=== PATIENT | female | born 1985 | race African-American/Black ===

== ENCOUNTER 2020-08-29 10:55 | Outpatient (CLI) | payer MEDICARE, SELFPAY ==
[2020-08-29 12:01] LABS: Basophils Absolute Auto 0.1 K/mm3 (0.0-0.1); Basophils Percent Auto 0.7 % (0.2-1.2); Eosinophils Absolute Auto 0.4 K/mm3 (0-0.3); Eosinophils Percent Auto 4.9 % (0-4.4); Hematocrit 39.8 % (37.0-47.0); Hemoglobin 12.7 g/dL (12.0-15.0); Immature Granulocyte Absolute 0.02 K/mm3 (0.00-0.031); Immature Granulocyte Percent A 0.2 % (0-0.5); Lymphocytes Absolute Auto 2.06 K/mm3 (0.9-3.2); Lymphocytes Percent Auto 24.2 % (18.3-44.2); Mean Corpuscular HGB Conc 31.9 g/dl (32-36); Mean Corpuscular Hemoglobin 28.7 pg (26-34); Mean Platelet Volume 9.9 fl (7.4-10.4); Monocytes Absolute Auto 0.5 K/mm3 (0.1-0.6); Monocytes Percent Auto 5.6 % (2.6-8.5); Neutrophils Absolute Auto 5.5 K/mm3 (1.3-6.7); Neutrophils Percent Auto 64.4 % (45.5-73.1); Platelet Count Result 362 k/mm3 (150-375); Red Blood Count 4.42 M/mm3 (4.2-5.4); Red Cell Distribution Width 14.5 % (11.5-14.5); White Blood Count 8.5 K/mm3 (4.5-10.0)
[2020-08-29 12:11] LABS: Alanine Aminotransferase 19 U/L (4-35); Alkaline Phosphatase 75 U/L (38-126); Anion Gap 6 mmol/L (8-16); Aspartate Amino Transferase 29 U/L (14-36); Bilirubin,Total 0.4 mg/dL (0.2-1.3); Blood Urea Nitrogen 10 mg/dL (7-17); CRP 2.3 mg/dL (<1.0); Calcium 9.1 mg/dL (8.4-10.2); Carbon Dioxide 30 mmol/L (22-30); Chloride 104 mmol/L (98-107); Estimated Glomerular Filt Rate > 60; Glucose 111 mg/dL (65-105); Potassium 3.6 mmol/L (3.4-5.0); Sodium 140 mmol/L (137-145)
[2020-08-29 14:00] LABS: Erythrocyte Sedimentation Rate 32 mm/hr (0-20)
== END 2020-08-29 10:56 | disposition home or self-care (01) ==
LOC: ANHLAB 11:05
PROVIDERS: PCP Internal Medicine
DX: M06.09 Rheumatoid arthritis without rheumatoid factor, multiple sites (principal); M79.7 Fibromyalgia; Z79.899 Other long term (current) drug therapy
CPT/HCPCS: 36415; 80053; 85025; 85652; 86140

== ENCOUNTER 2022-05-12 15:12 | Outpatient (CLI) | payer OTHER, SELFPAY ==
--- NOTE | ~2022-05-12 | XR_ITS ---
EXAM: XR abdomen/kub 1V DATE: 05/12/2022 15:28 HISTORY: K59.00 - Constipation, unspecified, PAIN SINCE FEBRUARY . COMPARISON: None available. FINDINGS: Clear lung bases. Suture line near the GE junction and mid left abdomen. Cholecystectomy c lips Normal bowel gas pattern. No organomegaly. Pelvic phleboliths. Regional bones and soft tissues n ormal for age. IMPRESSION: No radiographic evidence of obstruction or ileus. Reviewed, dictated and finalized at location K.
[2022-05-12 16:37] LABS: Hematocrit 28.8 % (37.0-47.0); Hemoglobin 8.5 g/dL (12.0-15.0); Mean Corpuscular HGB Conc 29.5 g/dl (32-36); Mean Corpuscular Hemoglobin 24.1 pg (26-34); Mean Corpuscular Volume 81.8 fl (80-100); Mean Platelet Volume 9.8 fl (7.4-10.4); Platelet Count Result 422 k/mm3 (150-375); Red Blood Count 3.52 M/mm3 (4.2-5.4); Red Cell Distribution Width 15.8 % (11.5-14.5); White Blood Count 8.8 K/mm3 (4.5-10.0)
[2022-05-12 16:55] LABS: Alanine Aminotransferase 13 U/L (6-35); Alkaline Phosphatase 72 U/L (38-126); Anion Gap 10 mmol/L (8-16); Aspartate Amino Transferase 24 U/L (14-36); Bilirubin,Total 0.1 mg/dL (0.2-1.3); Blood Urea Nitrogen 11 mg/dL (7-17); CRP 0.9 mg/dL (<1.0); Calcium 8.7 mg/dL (8.4-10.2); Carbon Dioxide 25 mmol/L (22-30); Chloride 103 mmol/L (98-107); Estimated Glomerular Filt Rate > 60; Glucose 80 mg/dL (65-110); Potassium 3.9 mmol/L (3.4-5.0); Sodium 138 mmol/L (137-145)
[2022-05-12 16:58] LABS: Iron 16 ug/dL (37-170)
[2022-05-12 17:07] LABS: Percent Iron Saturation 4 % (20-50)
[2022-05-12 17:11] LABS: Erythrocyte Sedimentation Rate 31 mm/hr (0-20)
[2022-05-12 17:30] LABS: Thyroid Stimulating Hormone Reflex 0.413 uIU/mL (0.465-4.68)
[2022-05-12 17:53] LABS: Folic Acid 7.3 ng/mL (2.76->20)
[2022-05-12 21:53] LABS: Free T4 Free Thyroxine Reflex 0.86 ng/dL (0.78-2.19)
[2022-05-12 23:10] LABS: Total Triiodothyronine (T3) 1.12 NG/ML (0.97-1.69)
[2022-05-25 16:11] LABS: Gliadin AB, IgG <1.0 U/mL
[2022-05-25 16:13] LABS: TTG IGA AB <1.0 U/mL
== END 2022-05-12 15:13 | disposition home or self-care (01) ==
LOC: ANHIMG 15:13
PROVIDERS: PCP Internal Medicine; Visit Provider Nurse Practitioner
DX: K59.00 Constipation, unspecified (principal); R93.3 Abnormal findings on diagnostic imaging of other parts of digestive tract; R10.11 Right upper quadrant pain; R14.0 Abdominal distension (gaseous); Z98.84 Bariatric surgery status
CPT/HCPCS: 36415; 74018; 80053; 82607; 82746; 83516; 83540; 83550; 84439; 84443; 84480; 85027; 85652; 86140; 86255

== ENCOUNTER 2022-05-22 11:08 | Outpatient (CLI) | payer MEDICARE, SELFPAY ==
--- NOTE | ~2022-05-22 | XR_ITS ---
EXAMINATION: XR UGIAC w small bowel DATE: 05/22/2022 13:14 INDICATION: Abdominal pain after eating. TECHNIQUE: The patient drank thick barium, gas-producing crystals, and thin barium. Fluoroscopy of th e esophagus, stomach, and small bowel was performed. Fluoroscopy exposure time was 0.6 minutes. Radio graphs of the abdomen were obtained. The total number of images was 280. COMPARISON: None. FINDINGS: UPPER GASTROINTESTINAL SERIES: There is no mass or stricture of the esophagus. Esophageal motility is normal. There is no hiatal her cecilio. There are changes of gastric bypass procedure. Surgical clips in the right upper quadrant are shiva oneill from cholecystectomy. SMALL BOWEL SERIES: The small bowel shows a normal folding pattern. Specifically, the terminal ileum is normal. Transit t jackeline to the colon was 1 hour 15 minutes. IMPRESSION: 1. Gastric bypass procedure. 2. Normal small bowel series. Reviewed, dictated and finalized at location A.
== END 2022-05-22 11:09 | disposition home or self-care (01) ==
PROVIDERS: PCP Internal Medicine; Visit Provider Nurse Practitioner
DX: R93.3 Abnormal findings on diagnostic imaging of other parts of digestive tract (principal); R10.11 Right upper quadrant pain; R14.0 Abdominal distension (gaseous); K21.9 Gastro-esophageal reflux disease without esophagitis; Z98.84 Bariatric surgery status
CPT/HCPCS: 74246; 74248

== ENCOUNTER 2022-06-02 12:57 | Outpatient (CLI) | payer MEDICARE, SELFPAY ==
--- NOTE | ~2022-06-02 | CT_ITS ---
EXAMINATION: CT abdomen pelvis w con DATE: 06/02/2022 13:36 INDICATION: Right upper quadrant abdominal pain. TECHNIQUE: Computed tomography (CT) of the abdomen and pelvis was performed with 100 cc Omnipaque 350 intravenous contrast. The dose-length product was 1218.78 mGy-cm. Automated exposure control and ite rative reconstruction technique were employed. COMPARISON: None. FINDINGS: Lung bases are unremarkable. No significant pleural or pericardial effusion. Heart size nor mal. Small hiatal hernia. There are changes of gastric bypass surgery. There are cholecystectomy clip s. Mild fatty infiltration of the liver. The spleen, pancreas, adrenal glands and kidneys are unremarkab le. There is residual barium in the colon. Nonobstructive bowel pattern. No free air or free fluid. T here is a 4.6 cm left adnexal cyst, likely ovarian. No acute osseous abnormality. IMPRESSION: 1. No acute abdominal abnormality. 2: Left adnexal cyst measuring 4.6 cm, likely ovarian. Reviewed, dictated and finalized at location A.
== END 2022-06-02 12:58 | disposition home or self-care (01) ==
PROVIDERS: PCP Internal Medicine; Visit Provider Nurse Practitioner
DX: R10.11 Right upper quadrant pain (principal); R14.0 Abdominal distension (gaseous); Z98.84 Bariatric surgery status
CPT/HCPCS: 74177; Q9967

== ENCOUNTER 2022-09-01 16:02 | Outpatient (CLI) | payer MEDICARE, SELFPAY ==
[2022-09-01 16:18] LABS: Basophils Absolute Auto 0.1 K/mm3 (0.0-0.1); Basophils Percent Auto 0.7 % (0.2-1.2); Eosinophils Absolute Auto 0.1 K/mm3 (0-0.3); Eosinophils Percent Auto 1.9 % (0-4.4); Hematocrit 30.6 % (37.0-47.0); Hemoglobin 9.2 g/dL (12.0-15.0); Immature Granulocyte Absolute 0.01 K/mm3 (0.00-0.031); Immature Granulocyte Percent A 0.1 % (0-0.5); Lymphocytes Absolute Auto 2.51 K/mm3 (0.9-3.2); Lymphocytes Percent Auto 37.2 % (18.3-44.2); Mean Corpuscular HGB Conc 30.1 g/dl (32-36); Mean Corpuscular Hemoglobin 24.3 pg (26-34); Mean Corpuscular Volume 80.7 fl (80-100); Monocytes Absolute Auto 0.6 K/mm3 (0.1-0.6); Monocytes Percent Auto 8.1 % (2.6-8.5); Neutrophils Absolute Auto 3.5 K/mm3 (1.3-6.7); Platelet Count Result 435 k/mm3 (150-375); Red Blood Count 3.79 M/mm3 (4.2-5.4); White Blood Count 6.8 K/mm3 (4.5-10.0)
[2022-09-01 17:30] LABS: Alanine Aminotransferase 18 U/L (6-35); Albumin Level 4.2 g/dL (3.5-5.1); Alkaline Phosphatase 86 U/L (38-126); Anion Gap 5 mmol/L (8-16); Aspartate Amino Transferase 24 U/L (14-36); Bilirubin,Total 0.2 mg/dL (0.2-1.3); Blood Urea Nitrogen 12 mg/dL (7-17); Calcium 8.6 mg/dL (8.4-10.2); Carbon Dioxide 29 mmol/L (22-30); Chloride 106 mmol/L (98-107); Estimated Glomerular Filt Rate > 60; Glucose 93 mg/dL (65-110); Potassium 4.1 mmol/L (3.4-5.0); Sodium 140 mmol/L (137-145)
[2022-09-01 18:34] LABS: Folic Acid 5.9 ng/mL (2.76->20)
[2022-09-01 18:55] LABS: Iron 26 ug/dL (37-170)
[2022-09-01 19:07] LABS: Percent Iron Saturation 6 % (20-50)
[2022-09-01 19:32] LABS: Ferritin 5.42 ng/mL (6.24-137)
== END 2022-09-01 16:03 | disposition home or self-care (01) ==
LOC: ANHLAB 16:03
PROVIDERS: PCP Internal Medicine; Visit Provider Internal Medicine Hematology & Oncology
DX: D64.9 Anemia, unspecified (principal)
CPT/HCPCS: 36415; 80053; 82607; 82728; 82746; 83540; 83550; 85025

== ENCOUNTER 2025-05-07 08:36 | Outpatient (CLI) | payer OTHER, SELFPAY ==
[2025-05-07 08:51] LABS: Hematocrit 37.2 % (37.0-47.0); Hemoglobin 11.6 g/dL (12.0-15.0); Immature Granulocyte Percent A 0.2 % (0-0.5); Lymphocytes Absolute Auto 1.89 K/mm3 (0.9-3.2); Mean Corpuscular HGB Conc 31.2 g/dl (32-36); Mean Corpuscular Hemoglobin 27.3 pg (26-34); Mean Corpuscular Volume 87.5 fl (80-100); Nucleated Red Blood Cells Absolute Auto 0.000 K/mm3 (0.0-0.012); Nucleated Red Blood Cells Perc 0.0 % (0.0-0.2); Platelet Count Result 315 k/mm3 (150-375); Red Blood Count 4.25 M/mm3 (4.2-5.4); White Blood Count 6.4 K/mm3 (4.5-10.0)
--- OUTSIDE RECORDS SUMMARY | 2025-05-07 08:55 | XMS_ITS | Encounter Summary ---
Author Organization [facility] Address [address] [place] [address] Phone Care Team Providers Care Recording Studio Set Up Worker Name Role Phone Janina Crockett MD Primary Care Provide r Janina Crockett MD Primary Care Provide r Janina Crockett MD Primary Care Provide r Niraj Crump BUSINESS SYSTEMS ADMINISTRATOR Primary Care Provider + Niraj Crump BUSINESS SYSTEMS ADMINISTRATOR Primary Care Provider + Niraj Crump BUSINESS SYSTEMS ADMINISTRATOR Primary Care Provider + Janina Crockett MD Primary Care Provide r Janina Crockett MD Primary Care Provide r Niraj Crump BUSINESS SYSTEMS ADMINISTRATOR Primary Care Provider + Janina Crockett MD Primary Care Provide r Niraj Crump BUSINESS SYSTEMS ADMINISTRATOR Primary Care Provider + Macario Tinoco PT Unavailable Unavailable Janina Crockett MD Primary Care Provide r Jermaine Huertas PT Unavailable Unavaila Niraj Michelle NP Primary Care Provider + Bria Bailey MD Unavailable [phone] Patience Chapa Primary Care Provider + Viktor Foley MD Unavailable [phone] Austin Lee MD Primary Care Provider [phone] Patience Chapa Primary Care Provider + Patience Chapa Primary Care Provider + Danilo Mirza MD Primary Care Provider [phone] Dannielle Lee MD Primary Care Provider [phone] Austin Lee MD Primary Care Provider [phone] Dannielle Lee MD Primary Care Provider [phone] Austin Lee MD Primary Care Provider [phone] Dannielle Lee MD Primary Care Provider [phone] Niraj Crump BUSINESS SYSTEMS ADMINISTRATOR Primary Care Provider + Austin Lee MD Primary Care Provider [phone] Brianna Hough RN Unavailable [phone] Rochelle GivensW Unavailable [phone] Fernanda Cooley MD Primary Care Provider Encounter Details Date Type Department Care Team (Latest Contact Info) Description 11/22/2017 Orders Only [facility] CONVERSION Scanning, Provider Social History Tobacco Use Types Packs/Day Years Used Date Smoking Tobacco: Never Smokeless Tobacco: Never Alcohol Use Standard Drinks/Week Comments No 0 (1 standard drink = 0.6 oz pur e alcohol) Comments Yes Sex and Gender Information Value Date Recorded Sex Assigned at Not on file Legal Sex Female 5:47 PM SUPERVISOR ORNAMENTAL IRONWORKING Gender Identity Not on file Sexual Orientation Not on file documented as of this encounter Plan of Treatment Not on file documented as of this encounter Procedures Procedure Name Priority Date/Time Associated Diagnosis Comments OBSTETRIC/GYNECOLOGY ULTRASONOGRAPHY REPORT 12/06/2017 6:39 PM CDT OBSTETRIC/GYNECOLOGY ULTRASONOGRAPHY REPORT 11/22/2017 11:48 AM CDT documented in this encounter Results * OBSTETRIC/GYNECOLOGY ULTRASONOGRAPHY REPORT (12/06/2017 6:39 PM CDT) Anatomical Region Laterality Modality Ultrasound us Provider Scanning IMG OB US PROCEDURES Final Res ult * OBSTETRIC/GYNECOLOGY ULTRASONOGRAPHY REPORT (11/22/2017 11:48 AM CDT) Anatomical Region Laterality Modality Ultrasound us Provider Scanning IMG OB US PROCEDURES Edited Re sult - Final documented in this encounter Visit Diagnoses Not on filedocumented in this encounter Additional Health Concerns Infection Onset Date Last Indicated Resolved Time COVID: Suspected 04/02/2020 04/02/2020 04/03/2020 2:07 PM CDT COVID19 04/02/2020 04/02/2020 04/16/2020 3:07 AM CDT COVID: Recovered Comment:Added based on recent COVID infection. 04/16/2020 05/03/2020 08/14/2020 3:[address] COVID: Suspected 09/28/2020 09/28/2020 09/28/2020 1:09 PM SUPERVISOR ORNAMENTAL [employer]ONWORKING Respiratory Infection (ROSAMARIA), contact + droplet Comment:Automatically added due to negative COVID-19 result. 09/28/2020 09/28/2020 09/30/2020 11: 42 AM SUPERVISOR [employer]RNAMENTAL [employer]ONWORKING C. difficile 09/29/2020 09/29/2020 09/30/2020 11:4 1 AM SUPERVISOR [employer]RNAMENTAL [employer]ONWORKING C. difficile Comment:03/13/2022 Patient completed antibiotic course in 2020. 12/13/2020 IP Review - Pt is currently on effective abx. Not a candidate for isolation discontinuation at this time. Franco Thomas IP Review- Patient has finished treatment and currently has formed stools. Isolation removed. 12/21/23 4:47 PM Rochelle Baker 09/29/2020 09/30/2020 12/21/2023 4:47 PM C DT COVID: Suspected 06/10/2021 06/10/2021 06/11/2021 3:24 AM CDT documented as of this encounter Care Teams Recording Studio Set Up Worker Relationship Specialty Start Date End Date Janina Crockett MD [address] [place] [address] PCP - General 11/22/17 11/22/17 Janina Crockett MD [address] [place] [address] PCP - General 11/23/17 11/25/17 Janina Crockett MD [address] [place] [address] PCP - General 11/26/17 11/28/17 Niraj Crump, ALEKSANDRA [address] [facility] [address] [place] [address] PCP - General 11/29/17 12/05/17 Niraj Crump, ALEKSANDRA [address] [facility] [address] [place] [address] PCP - General 12/06/17 12/06/17 Niraj Crump NP [address] [facility] [address] [place] [address] PCP - General 12/07/17 12/07/17 Janina Crockett MD [address] [place] [address] PCP - General 12/08/17 12/22/17 Janina Crockett MD [address] [place] [address] PCP - General 12/23/17 01/03/18 Niraj Crump NP [address] [facility] [address] [place] [address] PCP - General 01/04/18 01/04/18 Janina Crockett MD [address] [place] [address] PCP - General 01/05/18 02/03/18 Niraj Crump, ALEKSANDRA [address] [facility] [address] [place] [address] PCP - General 02/04/18 02/14/18 Janina Crockett MD [address] [place] [address] PCP - General 02/15/18 03/13/18 Niraj Crump, ALEKSANDRA [address] [facility] [address] [place] [address] PCP - General 03/14/18 08/27/18 Patience Chapa PA [address] [place] [address] PCP - General 08/28/18 06/26/19 Austin Lee MD [address] [place] [address] PCP - General Internal Medicine 06/27/19 07/11/19 Patience Chapa PA [address] [place], [place] [id number] PCP - General 07/12/19 08/20/19 Patience Chapa PA [address] [place] [address] PCP - General 08/21/19 11/13/19 Danilo Mirza MD [address] [place] [address] PCP - General 11/14/19 09/27/20 Dannielle Lee MD [address] [place] [address] PCP - General 09/28/20 11/30/20 Austin Lee MD [address] [place] [address] PCP - General 12/01/20 12/08/20 Dannielle Lee MD [address] [place] [address] PCP - General 12/09/20 12/09/20 Austin Lee MD [address] [place] [address] PCP - General 12/10/20 12/11/20 Dannielle Lee MD [address] [place] [address] PCP - General 12/12/20 06/09/21 Niraj Crump NP [address] [facility] [address] [place] [address] PCP - General 06/10/21 01/21/22 Austin Lee MD [address] [place] [address] PCP - General 01/22/22 02/22/25 Fernanda Cooley MD [address] [facility] Mailstop [phone] [place] [address] PCP - General Family Medicine 03/06/25 Macario Tinoco, PT Physical Therapist Physical Therapy 02/09/18 Jermaine Huertas, PT Physical Therapist Physical Therapy 02/21/18 Bria Bailey MD Referring Physician Obstetrics and Gynecology 03/31/18 Viktor Foley MD [address] [place] [address] Surgeon General Surgery 08/30/18 Brianna Hough, RN [address] [facility] [address] [place] [address] SHOP Outpatient Customs Import Specialist 12/27/23 01/20/24 Rochelle Givens, AUTO OVERHAULER [address] [facility] ([facility] Mailstop [phone] [place] [address] [employer]OP Outpatient Customs Import Specialist 02/26/25 documented as of this encounter
--- OUTSIDE RECORDS SUMMARY | 2025-05-07 08:55 | XMS_ITS | Encounter Summary ---
Author Organization [facility] Address [address] [place] [address] Phone Care Team Providers Care Rv Body Mechanic Name Role Phone Macario Tinoco PT Unavailable Unavailable Jermaine Huertas PT Unavailable Unavaila Bria Salamanca MD Unavailable [phone] Viktor Foley MD Unavailable [phone] Austin Lee MD Primary Care Provider [phone] Brianna Hough RN Unavailable [phone] Rochelle Givens SENIOR LOAN OFFICER Unavailable [phone] Fernanda Cooley MD Primary Care Provider Encounter Details Date Type Department Care Team (Late st Contact Info) Description 06/23/2022 Telephone [facility] Medicine Cardiology [address] [facility] [address]th [place] [address] [place] [address] Dc Gonzalez MD [address] [facility] [address] [place] [address] Social History Tobacco Use Types Packs/Day Years Used Date Smoking Tobacco: Never Smokeless Tobacco: Never Alcohol Use Standard Drinks/Week Comments Yes 0 (1 standard drink = 0.6 oz pur e alcohol) rarely AUDIT-C Answer Date Recorded Q1: How often do you have a drink containing alc ohol? Monthly or less 03/13/2022 Q2: How many drinks containi ng alcohol do you have on a typical day when you are drinking? 1 or 2 03/13/2022 Q3: How often do you have si x or more drinks on one occasion? Never 03/13/2022 Comments No Sex and Gender Information Value Date Recorded Sex Assigned at Not on file Legal Sex Female 5:47 PM HAND PATCHER Gender Identity Not on file Sexual Orientation Not on file documented as of this encounter Plan of Treatment Not on file documented as of this encounter Visit Diagnoses Not on filedocumented in this encounter Additional Health Concerns Infection Onset Date Last Indicated Resolved Time C. difficile Comment:03/13/2022 Patient completed antibiotic course in 2020. 12/13/2020 IP Review - Pt is currently on effective abx. Not a candidate for isolation discontinuation at this time. Francoalivia Thomas IP Review- Patient has finished treatment and currently has formed stools. Isolation removed. 12/21/23 4:47 PM Rochelle Baker 09/29/2020 09/30/2020 12/21/2023 4:47 PM C DT documented as of this encounter Care Teams Rv Body Mechanic Relationship Specialty Start Date End Date Austin Lee MD [address] [place] [address] PCP - General 01/22/22 02/22/25 Fernanda Cooley MD [address] [facility] ([facility] [phone] [place] [address] PCP - General Family Medicine 03/06/25 Macario Tinoco, PT Physical Therapist Physical Therapy 02/09/18 Jermaine Huertas, PT Physical Therapist Physical Therapy 02/21/18 Bria Bailey MD Referring Physician Obstetrics and Gynecology 03/31/18 Viktor Foley MD Surgeon General Surgery 08/30/18 Brianna Hough, RN [address] [facility] [address] [place] [address] SHOP Outpatient Collection Administrator 12/27/23 01/20/24 Rochelle Givens, LLOYD [address] [facility] [place] Mailstop [phone] [place] [address] SHOP Outpatient Collection Administrator 02/26/25 documented as of this encounter
--- OUTSIDE RECORDS SUMMARY | 2025-05-07 08:55 | XMS_ITS | Clinical Summary ---
Author Organization [facility] Address [address] [place] [address] Phone Care Team Providers Care Crew Lead Name Role Phone Austin Lee MD Primary Care Provider [phone] Allergies Active Allergy Reactions Criticality Noted Date Comments Aspirin Rash Low 10/08/2016 Latex Anaphylaxis,Rash Medium 03/10/2016 Penicillins Anaphylaxis,Other (s ee Comments) Low 03/10/2016 Pt.doesnt know Azithromycin Rash,Other (see Comments) Low 03/10/20 16 Pt.doesn't know Medications DULoxetine (CYMBALTA) [address] Particles Take 60 mg by mouth nightly. Active traZODone (DESYREL) 50 MG Tablet Take 25 mg by mouth nightly. Active prazosin (MINIPRESS) 1 MG Capsule Take 1 mg by mouth nightly. Active montelukast (SINGULAIR) 2.5 MG Chewable Tablet Take 10 mg by mouth every evening. Active cyclobenzaprine (FLEXERIL) 10 MG Tablet Take 10 mg by mouth 3 times daily as needed for Muscle spasms. Active furosemide (LASIX) 20 MG Tablet Take 20 mg by mouth daily. Active albuterol (PROVENTIL HFA, VENTOLIN HFA) 108 (90 BASE) MCG/ACT Aerosol Solution take 2 Puffs by inhalation every 4 hours as needed for Wheezing. Active ergocalciferol (VITAMIN D) 76557 UNIT Capsule 7 Active fluconazole (DIFLUCAN) 200 MG Tablet Take 1 tablet by mouth on days 1, 4, and 7. 6 Active HYDROcodone-erica taminophen (NORCO) 5-325 MG Tablet 7 Active metoprolol Succinate (TOPROL-XL) 25 MG TABLET SR 24 HR 7 Active montelukast (SINGULAIR) 10 MG Tablet 7 Active Norethindrone, Contraceptive, 0.35 MG Tablet 7 Active ondansetron (ZOFRAN-ODT) 4 MG TABLET DISPERSIBLE 7 Active oxyCODONE-aceta minophen (PERCOCET) 5-325 MG Tablet 7 Active traMADol (ULTRAM) 50 MG Tablet Take by mouth. Activ e DULoxetine (CYMBALTA) [address] Particles Take by mouth. Activ e hydroCHLOROthia zide 25 MG Tablet Take by mouth. Activ e clonazePAM (KLONOPIN) 0.5 MG Tablet Take by mouth. Activ e DULoxetine (CYMBALTA) [address] Particles Take by mouth. 4 Active metoprolol Succinate (TOPROL-XL) 25 MG TABLET SR 24 HR Take by mouth. 7 Active traMADol (ULTRAM) 50 MG Tablet Take by mouth. Activ e ciprofloxacin (CIPRO) 500 MG Tablet Take 500 mg by mouth 2 times daily. Active Wkpmvyap-Qgq-Rb -FA (PRE- PO) Take by mouth. Activ e metroNIDAZOLE (FLAGYL) 500 MG Tablet Take 500 mg by mouth 3 times daily. Active tiZANidine (ZANAFLEX) 4 MG Tablet Take 4 mg by mouth 2 times daily as needed. Active LORazepam (ATIVAN) 0.5 MG Tablet Take 1 tablet 60 min prior to procedure, repeat 30 min later as needed. 2 Tab 9 Active Additional Information Patient not taking.Reported on 03/05/2022 VANCOMYCIN HCL PO Take by mouth. Activ e etonogestrel (Nexplanon) 68 MG Implant by Subcutaneous route once. Active lamoTRIgine (LaMICtal) 100 MG Tablet Take 100 mg by mouth daily. Active diphenhydrAMINE HCl (BENADRYL ALLERGY PO) Take by mouth. Act aedn Active Problems Problem Noted Date Diagnosed Date Mild intermittent asthma without complication SOB (shortness of breath) 06/30/2016 JHONATAN (obstructive sleep apnea) 06/30/2016 Primary pulmonary hypertension 06/30/2016 Morbid obesity due to excess calories 06/30/2016 Gastroesophageal reflux disease without esophagi tis 06/30/2016 Depression 06/30/2016 Family History Medical History Relation Name Comments Congestive Heart Failure Father Hypertension Mother Relation Name Status Comments Father Alive Mother Alive Social History Tobacco Use Types Packs/Day Years Used Date Smoking Tobacco: Never Smokeless Tobacco: Never Tobacco Cessation:Counseling Given: Yes Alcohol Use Standard Drinks/Week Comments Yes 0 (1 standard drink = 0.6 oz pur e alcohol) special occassions Sexually Active Control Partners Comments Not Currently Comments No Sex and Gender Information Value Date Recorded Sex Assigned at Not on file Legal Sex Female 11:36 PM CDT Gender Identity Not on file Sexual Orientation Not on file Last Filed Vital Signs Vital Sign Reading Time Taken Comments Blood Pressure 124/68 07/14/2024 5:47 PM CDT Pulse 102 07/14/2024 5:47 PM CDT Temperature 36.4 C (97.6 F) 07/14/2024 5:47 PM CDT Respiratory Rate 19 07/14/2024 5:47 PM CDT Oxygen Saturation 100% 07/14/2024 5:47 PM CDT Inhaled Oxygen Concentration - - Weight 102.8 kg (226 lb 9.6 oz) 022 10:55 AM CDT Height 157.5 cm (5' 2) 03/05/2022 10:5 5 AM CDT Body Mass Index 41.45 03/05/2022 10:55 AM CDT Plan of Treatment Health Maintenance Due Date Last Done Comments Hepatitis C Virus (HCV) Screening 1987 Hepatitis B Immunization (1 of 3 - 19+ 3-dose series) 2006 Pneumococcal Immunization Combined (1 of 2 - PCV) 2006 Pap Smear 2008 Human Papillomavirus (HPV) Immunization (1 - 3-dose SCDM series) 2014 Cervical Cancer Screening (CCS) 2017 HPV/Cotest 2017 SARS-COV-2 Immunization ( season) 2024 10/29/2021, 05/12/2021, 04/19/2021 Influenza Immunization (#1) 2025 Respiratory Syncytial Virus (RSV) Immunization (Adult) (1 - 1-dose 75+ series) 2062 DTaP/Tdap/Td Immunization Discontinued 02/01/2018 TdaP Immunization Completed 02/01/2018 Meningococcal Immunization (ACWY) Aged Out No longer eligible based on patient's age to complete this topic Rotavirus Immunization Aged Out No lo nger eligible based on patient's age to complete this topic Insurance [employer] Care Teams Crew Lead Relationship Specialty Start Date End Date Austin Lee MD [address] [place] [address] PCP - General Internal Medicine 10/22/20
--- OUTSIDE RECORDS SUMMARY | 2025-05-07 08:55 | XMS_ITS | Encounter Summary ---
Author Organization [facility] Address [address] [place] [address] Phone Care Team Providers Care Freight Sales Broker Name Role Phone Macario Tinoco PT Unavailable Unavailable Jermaine Huertas PT Unavailable UnavailNiraj Nogueira NP Primary Care Provider + Bria Bailey MD Unavailable [phone] Patience Chapa Primary Care Provider + Viktor Foley MD Unavailable [phone] Austin Lee MD Primary Care Provider [phone] Patience Chapa Primary Care Provider + Patience Chapa Primary Care Provider + Danilo Mirza MD Primary Care Provider [phone] Dannielle Lee MD Primary Care Provider [phone] Austin Lee MD Primary Care Provider [phone] Dannielle Lee MD Primary Care Provider [phone] Austin Lee MD Primary Care Provider [phone] Dannielle Lee MD Primary Care Provider [phone] Niraj Crump NP Primary Care Provider + Austin Lee MD Primary Care Provider [phone] Brianna Hough RN Unavailable [phone] Yuniorcici Rochelle Flannery AUTOMATION ENGINEER Unavailable Fernanda Cooley MD Primary Care Provider Encounter Details Date Type Department Care Team (Latest Contact Info) Description 07/29/2018 Orders Only [facility] Scanning, Provider Social History Tobacco Use Types Packs/Day Years Used Date Smoking Tobacco: Never Smokeless Tobacco: Never Alcohol Use Standard Drinks/Week Comments No 0 (1 standard drink = 0.6 oz pur e alcohol) Comments No Sex and Gender Information Value Date Recorded Sex Assigned at Not on file Legal Sex Female 5:47 PM SOCIAL WORKER AIDE Gender Identity Not on file Sexual Orientation Not on file documented as of this encounter Plan of Treatment Not on file documented as of this encounter Procedures Procedure Name Priority Date/Time Associated Diagnosis Comments CARDIOLOGY DOCUMENT SCAN 07/29/2018 documented in this encounter Results * SCAN - CARDIOLOGY (07/29/2018) Anatomical Region Laterality Modality Other us Provider Scanning CV CARDIAC SERVICES PROCEDURES Final Result documented in this encounter Visit Diagnoses Not on filedocumented in this encounter Additional Health Concerns Infection Onset Date Last Indicated Resolved Time COVID: Suspected 04/02/2020 04/02/2020 04/03/2020 2:07 PM CDT COVID19 04/02/2020 04/02/2020 04/16/2020 3:07 AM CDT COVID: Recovered Comment:Added based on recent COVID infection. 04/16/2020 05/03/2020 08/14/2020 3:[address] COVID: Suspected 09/28/2020 09/28/2020 09/28/2020 1:09 PM SOCIAL WORKER AIDE Respiratory Infection (ROSAMARIA), contact + droplet Comment:Automatically added due to negative COVID-19 result. 09/28/2020 09/28/2020 09/30/2020 11: 42 AM SOCIAL WORKER AIDE C. difficile 09/29/2020 09/29/2020 09/30/2020 11:4 1 AM SOCIAL WORKER AIDE C. difficile Comment:03/13/2022 Patient completed antibiotic course [...] documented as of this encounter Care Teams Freight Sales Broker Relationship Specialty Start Date End Date Niraj Crump NP [address] [facility] [address] [place] [id number] PCP - General 03/14/18 08/27/18 Patience Chapa PA [address] [place] [address] PCP - General 08/28/18 06/26/19 Austin Lee MD [address] [place] [address] PCP - General Internal Medicine 06/27/19 07/11/19 Patience Chapa PA [address] [place] [address] PCP - General 07/12/19 08/20/19 Patience Chapa PA [address] [facility] [place] [id number] PCP - General 08/21/19 11/13/19 Danilo Mirza MD [address] [place] [address] PCP - General 11/14/19 09/27/20 Dannielle Lee MD [address] [place] [address] PCP - General 09/28/20 11/30/20 Austin Lee MD [address] [place] [address] [id number] PCP - General 12/01/20 12/08/20 Dannielle Lee MD [address] [place] [address] PCP - General 12/09/20 12/09/20 Austin Lee MD [address] [place] [address] PCP - General 12/10/20 12/11/20 Dannielle Lee MD [address] [place] [address] PCP - General 12/12/20 06/09/21 Niraj Crump NP [address] [facility] [address] [address] [place] [address] PCP - General 06/10/21 01/21/22 Austin Lee MD [address] [place] [address] PCP - General 01/22/22 02/22/25 Fernanda Cooley MD [address] [facility] ([facility] Mailstop [phone] [place] [address] PCP - General Family Medicine 03/06/25 Macario Tinoco, PT Physical Therapist Physical Therapy 02/09/18 Jermaine Huertas, PT Physical Therapist Physical Therapy 02/21/18 Bria Bailey MD [address] [facility] [address], [place] [address] Referring Physician Obstetrics and Gynecology 03/31/18 Viktor Foley MD [address] [facility] [address] [place], [place] [id number] Surgeon General Surgery 08/30/18 Brianna Hough, RN [address] [facility] [address] [place] [address] [facility]OP Outpatient Horticultural Technical Officer 12/27/23 01/20/24 Rocehlle Givens, AUTOMATION ENGINEER [address] [facility] ([facility] Mailstop [phone] [place] [address] [facility] Outpatient Horticultural Technical Officer 02/26/25 documented as of this encounter
--- OUTSIDE RECORDS SUMMARY | 2025-05-07 08:55 | XMS_ITS | Clinical Summary ---
Author Organization [facility] Address [address] [place] [id number] Care Team Providers Care Planer Setter Name Role Phone Macario Tinoco PT Unavailable Unavailable Jermaine Huertas PT Unavailable Unavaila Bria Salamanca MD Unavailable [phone] Viktor Foley MD Unavailable [phone] Rochelle Givens [facility] Unavailable [phone] Fernanda Cooley MD Primary Care Provider Allergies Active Allergy Reactions Criticality Noted Date Comments Azithromycin Anaphylaxis,Rash High 03/31/2016 Throat swelling; epi given Penicillin V Potassium Anaphylaxis High 05/20/2016 As a child Penicillins Anaphylaxis High 10/08/2016 As a child Venom-Honey Bee Anaphylaxis High 01/02/2019 Zileuton Unknown 05/20/2016 Medications EPINEPHrine (EPIPEN) 0.15 mg/0.3 mL injection syringeIndications:A naphylaxis Inject 0.3 mL (0.15 mg total) into the muscle as instructed as needed for anaphylaxis 02/18/[address] (CYMBALTA) 60 mg capsuleIndications:A nxiety with Depression,Fibromyal antonia,pain Take 1 capsule (60 mg total) by mouth daily Active pregabalin (LYRICA) 200 mg capsuleIndications:F ibromyalgia,pain Take 1 capsule (200 mg total) by mouth 2 (two) times a day 05/08/20 19 Active etonogestreL (NEXPLANON) 68 mg implantIndications:P regnancy Contraception 1 each (68 mg total) by subdermal route continuous 05/27/20 18 Active clonazePAM (KlonoPIN) 0.5 mg tablet Take 1 tablet (0.5 mg total) by mouth 3 (three) times a day as needed for anxiety 01/21/20 22 Active metoprolol XL (TOPROL-XL) 25 mg extended release tablet Take 0.5 tablets (12.5 mg total) by mouth 2 (two) times a day 12/24/19 24 Active cyclobenzaprine (FLEXERIL) 10 mg tablet TAKE 1/2 (ONE-HALF) TABLET BY MOUTH IN THE MORNING THEN 1 EVERY DAY AT BEDTIME 11/15/19 25 Active apixaban (ELIQUIS) 5 mg tablet Take 1 tablet (5 mg total) by mouth 2 (two) times a day 180 tablet 2 11/28/19 25 Active traZODone (DESYREL) 50 mg tablet Take 1 tablet (50 mg total) by mouth nightly 02/14/20 25 Active dofetilide (TIKOSYN) 125 mcg capsuleIndications:P aroxysmal Supraventricular Tachycardia Take 1 capsule (125 mcg total) by mouth 2 (two) times a day (Please call [phone] to schedule follow up appointment for future refills) 60 capsule 02/26/20 25 Active empagliflozin (JARDIANCE) 10 mg tablet Take 1 tablet (10 mg total) by mouth daily 90 tablet 02/26/20 25 Active Active Problems Problem Noted Date Diagnosed Date Syncope, unspecified syncope type 02/22/2025 Assessment & Plan (02/25/2025 11:29 AM CDT): Presented with syncopal episode at work. Follows with EP, on dofetilide and metoprolol with adherence. Prior extensive workup including prior implanted loop recorder, numerous EKGs, TTE 04/2024, and a recent 14 day event monitor 11/30/2024-12/12/2024. She's had lots of atrial ectopy, and seems to be very symptomatic with even short runs of SVT. She did have a pre-syncope episode during her admission H*P which correlated to a short SVT on telemetry. Her afib history is less clear, it appears she was diagnosed >7 years ago but has not had afib episodes captured on her extensive work up otherwise as far as I can tell on my review. She did have a PE (thought to be provoked from control) years prior. She otherwise has a low [id number] score and has elected to discontinue eliquis given her heavy menorrhagia and TESSA. - Telemetry - TTE: EF 50%, mild dilation of LV, no significant valvular disease - INCREASE metoprolol XL to 25mg qHS - EP consulted, increased Tikosyn 250 mcg bid, check EKG after every Tikosyn decreaed to 125 mcg bid after qtc change on recent EKG. - holding off on apixaban per patient preference Assessment & Plan (02/24/2025 10:55 AM CDT): Presented with syncopal episode at work. Follows with EP, on dofetilide and metoprolol with adherence. Prior extensive workup including prior implanted loop recorder, numerous EKGs, TTE 04/2024, and a recent 14 day event monitor 11/30/2024-12/12/2024. She's had lots of atrial ectopy, and seems to be very symptomatic with even short runs of SVT. She did have a pre-syncope episode during her admission H*P which correlated to a short SVT on telemetry. Her afib history is less clear, it appears she was diagnosed >7 years ago but has not had afib episodes captured on her extensive work up otherwise as far as I can tell on my review. She did have a PE (thought to be provoked from control) years prior. She otherwise has a low [id number] score and has elected to discontinue eliquis given her heavy menorrhagia and TESSA. - Telemetry - TTE: EF 50%, mild dilation of LV, no significant valvular disease - INCREASE metoprolol XL to 25mg qHS - EP consulted, increased Tikosyn 250 mcg bid, check EKG after every Tikosyn - holding off on apixaban per patient preference Assessment & Plan (02/23/2025 1:25 PM CDT): Presented with syncopal episode at work. Follows with EP, on dofetilide and metoprolol with adherence. Prior extensive workup including prior implanted loop recorder, numerous EKGs, TTE 04/2024, and a recent 14 day event monitor 11/30/2024-12/12/2024. She's had lots of atrial ectopy, and seems to be very symptomatic with even short runs of SVT. She did have a pre-syncope episode during her admission H*P which correlated to a short SVT on telemetry. Her afib history is less clear, it appears she was diagnosed >7 years ago but has not had afib episodes captured on her extensive work up otherwise as far as I can tell on my review. She did have a PE (thought to be provoked from control) years prior. She otherwise has a low [id number] score and has elected to discontinue eliquis given her heavy menorrhagia and TESSA. - Telemetry - TTE: EF 50%, mild dilation of LV, no significant valvular disease - Continue home dofetilide - INCREASE metoprolol XL to 25mg qHS - EP consult - holding off on apixaban per patient preference Assessment & Plan (02/22/2025 2:50 PM CDT): Presented with syncopal episode at work. Follows with EP, on dofetilide and metoprolol with adherence. Prior extensive workup including prior implanted loop recorder, numerous EKGs, TTE 04/2024, and a recent 14 day event monitor 11/30/2024-12/12/2024 without events. Admit EKG, lytes, tele have been reassuring thus far. On serial reassessment, did have episode of presyncopal symptoms during admission that corresponded to 3 second run of SVT to 180s. - Presenting symptoms could be in setting of symptomatic SVT, which could be driven by symptomatic iron deficiency anemia on top of baseline NICM - Orthostatics x1 - Telemetry - TTE - Continue home dofetilide - INCREASE metoprolol XL to 25mg qHS - Management of TESSA/B12 def anemia as elsewhere Iron deficiency anemia, B12 deficiency Assessment & Plan (02/25/2025 8:41 AM CDT): History of gastric bypass surgery and menorrhagia defined as periods of 10-15 days with 8 days of heavy periods, not currently on iron infusions or vitamin supplementation. Hgb 8.6, MCV 78, ferritin 19, Tsat 3. B12 291. - Iron dextran x1 - B12 supplementation - patient prefers IM injections given concern for poor absorption with her bypass - Pelvic US unremarkable - Encouraged patient to discuss with outpatient hematology regarding further iron supplementation; patient says her extruding press operator has already put in a referral - Encouraged patient to follow up with her outpatient nurse staff community health for further evaluation; patient agreeable Assessment & Plan (02/24/2025 10:55 AM CDT): History of gastric bypass surgery and menorrhagia defined as periods of 10-15 days with 8 days of heavy periods, not currently on iron infusions or vitamin supplementation. Hgb 8.6, MCV 78, ferritin 19, Tsat 3. B12 291. - Iron dextran x1 - B12 supplementation - patient prefers IM injections given concern for poor absorption with her bypass - Pelvic US unremarkable - Encouraged patient to discuss with outpatient hematology regarding further iron supplementation; patient says her extruding press operator has already put in a referral - Encouraged patient to follow up with her outpatient nurse staff community health for further evaluation; patient agreeable Assessment & Plan (02/23/2025 1:25 PM CDT): History of gastric bypass surgery and menorrhagia defined as periods of 10-15 days with 8 days of heavy periods, not currently on iron infusions or vitamin supplementation. Hgb 8.6, MCV 78, ferritin 19, Tsat 3. B12 291. - Iron dextran x1 - B12 supplementation - patient prefers IM injections given concern for poor absorption with her bypass - Pelvic US unremarkable - Encouraged patient to discuss with outpatient hematology regarding further iron supplementation; patient says her extruding press operator has already put in a referral - Encouraged patient to follow up with her outpatient nurse staff community health for further evaluation; patient agreeable Assessment & Plan (02/22/2025 2:50 PM CDT): History of gastric bypass surgery and menorrhagia defined as periods of 10-15 days with 8 days of heavy periods, not currently on iron infusions or vitamin supplementation. Hgb 8.6, MCV 78, ferritin 19, Tsat 3. B12 291. - Iron dextran x1 - B12 1000mcg supps daily - Pelvic US - Encouraged patient to discuss with outpatient hematology regarding further iron supplementation; patient says her extruding press operator has already put in a referral - Encouraged patient to follow up with her outpatient nurse staff community health for further evaluation pending workup History of pulmonary embolism 02/22/2025 Assessment & Plan (02/25/2025 8:41 AM CDT): Reported history of PE in her 20's thought to be provoked in setting of hormonal control injections. No thromboembolic events since. Assessment & Plan (02/24/2025 10:55 AM CDT): Reported history of PE in her 20's thought to be provoked in setting of hormonal control injections. No thromboembolic events since. Assessment & Plan (02/23/2025 1:25 PM CDT): Reported history of PE in her 20's thought to be provoked in setting of hormonal control injections. No thromboembolic events since. Assessment & Plan (02/22/2025 2:53 PM CDT): Reported history of PE in her 20's thought to be provoked in setting of hormonal control injections. No thromboembolic events since. Back pain 12/22/2023 Assessment & Plan (12/23/2023 2:18 PM CDT): Pt reports she had abdominal pain that started ~ 2 weeks ago and was seen at a OSH ED where she had a CT scan with a 3mm ovarian cyst. The pain has continued but has since moved to her R lower back. States that it was a sharp pain on Wednesday and now more of a dull pain. -OSH CT A/P W on 12/02 showing right ovarian cyst measuring 3.2cm -Requested actual CD images from [facility] in [place], [place] for our radiology department review (they will FedEx CD) -Seems to be overall improving -UA without evidence of infection -Tramadol PRN -Tylenol PRN, heat packs Assessment & Plan (12/23/2023 9:38 AM CDT): Pt reports she had abdominal pain that started ~ 2 weeks ago and was seen at a OSH ED where she had a CT scan with a 3mm ovarian cyst. The pain has continued but has since moved to her R lower back. States that it was a sharp pain on Wednesday and now more of a dull pain. -OSH CT A/P W on 12/02 showing right ovarian cyst measuring 3.2cm -Seems to be overall improving -UA without evidence of infection -Tramadol PRN -Tylenol PRN, heat packs Assessment & Plan (12/22/2023 12:22 PM CDT): Pt reports she had abdominal pain that started ~ 2 weeks ago and was seen at a OSH ED where she reportedly had a CT scan with a 3mm ovarian cyst. The pain has continued but has since moved to her R lower back. States that it was a sharp pain on Wednesday and now more of a dull pain. -seems to be overall improving -UA without evidence of infection -will obtain CT report from OSH ED -tramadol PRN -tylenol PRN, heat packs Syncope and collapse 09/03/2023 Cardiomyopathy 08/31/2023 Assessment & Plan (02/25/2025 8:41 AM CDT): NICM following with cardiology with improved LVEF 40->50% 04/2024. GDMT limited outpatient due to hypotension so has been on SGLT2i and BB. Euvolemic. - Continue home jardiance, metoprolol Assessment & Plan (02/24/2025 10:55 AM CDT): NICM following with cardiology with improved LVEF 40->50% 04/2024. GDMT limited outpatient due to hypotension so has been on SGLT2i and BB. Euvolemic. - Continue home jardiance, metoprolol Assessment & Plan (02/23/2025 1:25 PM CDT): NICM following with cardiology with improved LVEF 40->50% 04/2024. GDMT limited outpatient due to hypotension so has been on SGLT2i and BB. Euvolemic. - Continue home jardiance, metoprolol Assessment & Plan (02/22/2025 2:01 PM CDT): NICM following with cardiology with improved LVEF 40->50% 04/2024. GDMT limited outpatient due to hypotension so has been on SGLT2i and BB. Euvolemic. - Continue home jardiance, metoprolol Assessment & Plan (11/27/2024 12:28 PM CDT): NICM Chronic systolic heart failure. Improved LV function on echo 50% 04/2024. NYHA class I findings, appears euvolemic on exam. Genetic testing sent previously. Ischemic eval negative in March 2023 with ongoing atypical chest pain related to her PACs. Hypotensive, change Entresto to low dose losartan, continue farxiga, metoprolol. Her BP wont tolerate more GDMT at this point. Talia in 6 months. Assessment & Plan (01/28/2024 11:19 AM CDT): NICM Chronic systolic heart failure. 40% 03/2023. Systolic Heart Failure, NYHA class I findings, appears euvolemic on exam. Genetic testing sent previously. Ischemic eval negative in March 2023. Continue Entresto low dose and farxiga, metoprolol. Her BP wont tolerate more GDMT at this point. Dr. Smith in 3 months, ECHO same day. Assessment & Plan (12/23/2023 9:26 AM CDT): NICM, EF 40% on cMRI 2022. Chronic systolic heart failure. -Hemodynamically stable, appears euvolemic on exam -Continue home dapagliflozin and Entresto -Consider addition of spironolactone -Strict I&Os, daily weights, telemetry Assessment & Plan (12/22/2023 12:17 PM CDT): NICM, EF 40% on cMRI 2022. Chronic systolic heart failure. -hemodynamically stable, appears euvolemic on exam -continue home dapagliflozin and Entresto -consider addition of spironolactone -I&Os, daily weights, telemetry Assessment & Plan (10/15/2023 12:24 PM TRIAL MGR): NICM oNewly Diagnosed noted on MRI EF of 40% 03/2023. Systolic Heart Failure, NYHA class II findings, appears euvolemic on exam. She has a sister with CMY who last year. Genetic testing sent today. Ischemic eval negative in March 2023. Holter to r/o bradycardia and resume metoprolol. Continue Entresto low dose and farxiga. Follow up in 3 months for GDMT optimization. Assessment & Plan (08/31/2023 12:03 PM TRIAL MGR): CMRI showed LVEF 40% Compensated on exam Continue GDMT per cardiology Resuming metoprolol today Weakness of both lower extremities 04/10/2022 Hx of bariatric surgery 02/24/2022 Overview (02/24/2022): Added automatically from request for surgery [id number] Preoperative testing 12/12/2020 Vomiting and diarrhea 09/28/2020 Rheumatoid arthritis involving multiple sites Obstructive sleep apnea 08/23/2020 Gastroesophageal reflux disease 08/23/2020 Atrial fibrillation 08/23/2020 Assessment & Plan (11/27/2024 12:25 PM CDT): Documented history of with NICM pt would be a [id number] of 3-4, start Eliquis 5 mg BID, (NICM, Female, prior DVT). Repeat MCT. And follow up with EP, re rhythm control. Continue Tikosyn and metoprolol. EKG Today with PACs. Assessment & Plan (10/15/2023 12:13 PM TRIAL MGR): Documented history of with NICM pt would be a [id number] of 2. Repeat 7 day Holter. She has reservation about resuming her BB as well, concerned with bradycardia. Assessment & Plan (08/31/2023 12:03 PM TRIAL MGR): History of paroxysmal atrial fibrillation, now with increased palpitations Anxiety disorder 08/23/2020 Major depressive disorder, recurrent episode, mo derate 08/23/2020 Bacterial vaginosis 10/03/2019 Abdominal pain 07/24/2019 Overview (07/25/2019): Added automatically from request for surgery [id number] Assessment & Plan (08/31/2019 12:07 PM TRIAL MGR): CT with contrast, colonoscopy, and EGD all unremarkable. Mostly likely pain is neuropathic especially since she notices that when she takes additional dose of lyrica, she has improvement. Encouraged her to continue following closely with RA doctor regarding her lyrica prescription. She should follow up with GI prn. History of colitis 07/24/2019 Overview (07/25/2019): Added automatically from request for surgery [id number] Slow transit constipation 06/19/2019 Assessment & Plan (07/24/2019 2:53 PM TRIAL MGR): Taking Linzess 72mcg daily and doing well. Now having normal BM's daily. Assessment & Plan (06/19/2019 2:24 PM CDT): Pt has hard stools and goes every couple of days. She gets bloated and uncomfortable if she doesn't have a BM. She has tried fiber and Miralax before. Pt avoids more harsh laxatives because she used to have an eating disorder and abused laxatives. Will start on Linzess 72mcg to see if this helps with her BM's and pain. Class 3 severe obesity due t o excess calories without serious comorbidity with body mass index (BMI) of 45.0 to 49.9 in adult 06/19/2019 Palpitations 05/30/2019 Acute calculous cholecystitis 08/29/2018 Assessment & Plan (08/29/2018 7:36 PM TRIAL MGR): Status post laparoscopic cholecystectomy Continue postop management Optimize pain control History of asthma 08/29/2018 Assessment & Plan (08/29/2018 7:39 PM TRIAL MGR): Adult bronchodilator therapy with nebulized treatments as indicated Incentive spirometry Anemia 07/31/2018 Assessment & Plan (12/23/2023 9:38 AM CDT): Follows with an outpatient casing finisher and stuffer for IV iron infusions but has not been able to make it to those appointment for 4-5 months. -Hgb 9.3 on admission (pt reports it was 10.1 at OSH ED ~ 2wks ago) -Hgb currently 9.3 -Iron 26, ferritin 7, TIBC and Tsat were hemolyzed - will repeat (added on to AM labs) -Consider IV iron infusion while inpatient Assessment & Plan (12/22/2023 12:34 PM CDT): Follows with an outpatient casing finisher and stuffer for IV iron infusions but has not been able to make it to those appointment for 4-5 months. -Hgb 9.3 on admission (pt reports it was 10.1 at OSH ED ~ 2wks ago) -iron 26, ferritin 7, TIBC and Tsat were hemolyzed - will repeat -consider IV iron infusion while inpatient Migraine 07/31/2018 Vertigo 07/31/2018 Syncope and collapse 04/27/2018 Assessment & Plan (02/07/2019 3:11 PM CDT): This does sound suspicious for orthostasis, but she has had prior syncope in the setting of SVT. She is unable to tolerate event recorders due to severe adhesive allergy. I have recommended placement of an implanted loop recorder to assess for arrhythmic vs nonarrhythmic cause of her syncope. Assessment & Plan (07/05/2018 10:49 AM CDT): Likely related to very fast SVT. Management with adjustment in metoprolol and flecainide per above. Normal LV systolic function. Assessment & Plan (04/29/2018 3:19 PM CDT): No recurrence. Due to very fast SVT. Now that atrial arrhythmia is under control, unlikely to recur. Counseled patient on importance of med compliance. SVT (supraventricular tachycardia) 04/27/2018 Assessment & Plan (11/27/2024 12:25 PM CDT): Improved on Dofetilide. Continue Metoprolol. Assessment & Plan (01/28/2024 11:15 AM CDT): Improved on Dofetilide. Continue Metoprolol. Assessment & Plan (12/23/2023 9:22 AM CDT): History of paroxysmal afib, CHADsVASC 1, has never been on therapeutic AC. Admitted for dofetilide load. -Started dofetilide 250mcg BID the evening of 12/20-QTc 489 after first dose -Currently SR 90s, runs of SVT -QTc 486ms on last night's post EKG -Decrease dofetilide to 125mcg BID to start this morning -EKG 2 hours after each dose of dofetilide -Continue metoprolol XL 12.5mg BID -Continuous uninterrupted telemetry monitoring -Keep K > 4.0, Mg > 2.0, replete as indicated Assessment & Plan (12/22/2023 12:07 PM CDT): Also has a history of paroxysmal afib, CHADsVASC 1, has never been on therapeutic AC. -currently SR 80s, runs of SVT -continue dofetilide 250mcg BID -EKG 2hrs after each dose of dofetilide, Qtc 489 after first dose -strict telemetry -continue metoprolol XL 12.5mg BID Assessment & Plan (10/15/2023 12:18 PM TRIAL MGR): Syncope in the setting of SVT. Pending holter will attempt to resume BB. Assessment & Plan (08/31/2023 12:00 PM TRIAL MGR): Frequent PACs and likely short runs of atrial tachycardia Resume beta fred Will start metoprolol XL 25 mg daily and increase as BP tolerates Assessment & Plan (02/07/2019 3:12 PM CDT): She currently denies a significant burden of palpitations. On exam, she has frequent atrial ectopy. We will continue her on metoprolol and flecainide at current dose. If her loop recorder reveals frequent SVT not controlled by her antiarrhythmics, would reconsider ablation. Assessment & Plan (07/05/2018 10:48 AM CDT): She continues to have frequent palpitations. Her EKG today shows frequent ectopy most c/w PACs w aberrancy. QTc is 426. I have recommended changing her metoprolol xl to 75 bid as her symptoms are worst as she nears the end of her dosing interval. We will increase her flecainide to 100 mg BID and obtain an EKG on Wednesday. We will also obtain a 30 day event monitor to assess for any sustained activity. Assessment & Plan (05/24/2018 4:53 PM CDT): Rates improved with metoprolol however pt still with ectopy on exam and two episodes of palpitations as noted above. Will add flecainide 50mg bid to her regimen with plan to uptitrate as tolerated to 100mg bid. She will need EKG in a few days before uptitration. Will continue beta fred at this time. Pt also advised that sleep apnea (history of mild JHONATAN) may be contributing and will need to follow-up with sleep medicine for refitting of CPAP. Assessment & Plan (04/29/2018 3:18 PM CDT): SVT - likely atrial tachycardia versus multi-focal atrial tachycardia. Significantly improved w beta blockade Convert to metoprolol succinate 100 mg QHS on hospital discharge OK to discharge home Follow up with me in clinic in 4 weeks - I will arrange BMI 50.0-59.9, adult 04/01/2018 Overview (04/15/2018): - significant morbid obesity - compliant with ASA 81 mg - exertional dyspnea due to obesity & FHx: congenital heart disease 04/01/2018 Overview (04/01/2018): - no signs of disease in patient - no further work-up recommended - anatomic survey of fetus complete and cardiac anatomy normal - no further work-up recommended Hypoglycemia 04/01/2018 Overview (04/01/2018): - patient reported history of diagnosis - checks BG at home, lowest is 62, nothing below 60 - discussed physiologically this is safe and therefore, we would not do anything different Pulmonary hypertension 10/06/2017 Overview (04/15/2018): History per pt. S/p cards consult with Dr. Felix. No evidence of pulmonary HTN on echo. - Echo: EF 60%, no signs of RV strain - no further work-up necessary or precautions Assessment & Plan (07/05/2018 10:48 AM CDT): No evidence of PAH on most recent TTE. Anxiety 09/30/2017 Assessment & Plan (08/29/2018 7:37 PM TRIAL MGR): Will treat as needed. History of deep venous thrombosis 09/30/2017 Overview (04/15/2018): - h/o DVT in 2013 - after discussion, decision made to proceed with prophylactic lovenox with transitioning to heparin at this time, per primary OB - reports compliance with lovenox - testing to date reassuring Hospital Course 04/15: -Will restart prophylactic Lovenox 6 hrs if vaginal delivery, or 12 hrs if . Right sided abdominal pain 09/30/2017 Assessment & Plan (07/24/2019 2:53 PM TRIAL MGR): Pt is still having constant dull ache in right mid to upper abdomen. On 05/14 she went to the [facility] for this pain and had CT of abdomen with contrast done. We will request this imaging so I can take a look. Will complete workup with EGD to rule out anything that may be causing her pain. It appears this pain is likely neuropathic and we discussed this in detail. Pt also has fibromyalgia, lower back pain, and has history of multiple abdominal surgeries. She is on lyrica 75mg twice daily from her rheum doctor. Assessment & Plan (06/19/2019 2:26 PM CDT): Started about 2 months ago. This has improved. Pt says it was extremely painful for about 1.5 months but recently is less severe. Pain is dull and constant. Food does not worsen this pain. She says BM does not relieve the pain. She had a CT of abdomen done recently at [facility] that per patient, didn't show anything. She is s/p cholecystectomy and appendectomy. Colonoscopy with Dr. Byers. 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 017 SOB (shortness of breath) 10/12/2016 Depression 06/30/2016 Mild intermittent asthma without complication Morbid obesity 06/30/2016 Obstructive sleep apnea syndrome 06/30/2016 Chronic pain 06/17/2016 Assessment & Plan (12/23/2023 9:23 AM CDT): Pt has RA and fibromyalgia -Continue home duloxetine 60mg daily and lyrica 200mg BID Assessment & Plan (12/22/2023 12:19 PM CDT): Pt has RA and fibromyalgia -continue home duloxetine 60mg daily and lyrica 200mg BID Suicidal ideation 05/20/2016 Moderate episode of recurrent major depressive d isorder 04/01/2016 Hypothyroidism 12/16/2015 Overview (04/01/2018): - reports history of diagnosis previously - not being followed with serial labs, no medications currently - asymptomatic today Endometriosis 12/16/2015 Chronic migraine without aur a without status migrainosus, not intractable 12/16/2015 PTSD (post-traumatic stress disorder) 12/16/2015 Wound infection Supraventricular tachycardia , Paroxysmal atrial fibrillation Assessment & Plan (02/25/2025 11:29 AM CDT): Presented with syncopal episode at work. Follows with EP, on dofetilide and metoprolol with adherence. Prior extensive workup including prior implanted loop recorder, numerous EKGs, TTE 04/2024, and a recent 14 day event monitor 11/30/2024-12/12/2024. She's had lots of atrial ectopy, and seems to be very symptomatic with even short runs of SVT. She did have a pre-syncope episode during her admission H*P which correlated to a short SVT on telemetry. Her afib history is less clear, it appears she was diagnosed >7 years ago but has not had afib episodes captured on her extensive work up otherwise as far as I can tell on my review. She did have a PE (thought to be provoked from control) years prior. She otherwise has a low [id number] score and has elected to discontinue eliquis given her heavy menorrhagia and TESSA. - Telemetry - TTE: EF 50%, mild dilation of LV, no significant valvular disease - INCREASE metoprolol XL to 25mg qHS - EP consulted, increased Tikosyn 250 mcg bid, check EKG after every Tikosyn decreaed to 125 mcg bid after qtc change on recent EKG. - holding off on apixaban per patient preference Assessment & Plan (02/24/2025 10:55 AM CDT): Presented with syncopal episode at work. Follows with EP, on dofetilide and metoprolol with adherence. Prior extensive workup including prior implanted loop recorder, numerous EKGs, TTE 04/2024, and a recent 14 day event monitor 11/30/2024-12/12/2024. She's had lots of atrial ectopy, and seems to be very symptomatic with even short runs of SVT. She did have a pre-syncope episode during her admission H*P which correlated to a short SVT on telemetry. Her afib history is less clear, it appears she was diagnosed >7 years ago but has not had afib episodes captured on her extensive work up otherwise as far as I can tell on my review. She did have a PE (thought to be provoked from control) years prior. She otherwise has a low [id number] score and has elected to discontinue eliquis given her heavy menorrhagia and TESSA. - Telemetry - TTE: EF 50%, mild dilation of LV, no significant valvular disease - INCREASE metoprolol XL to 25mg qHS - EP consulted, increased Tikosyn 250 mcg bid, check EKG after every Tikosyn - holding off on apixaban per patient preference Assessment & Plan (02/23/2025 1:25 PM CDT): Presented with syncopal episode at work. Follows with EP, on dofetilide and metoprolol with adherence. Prior extensive workup including prior implanted loop recorder, numerous EKGs, TTE 04/2024, and a recent 14 day event monitor 11/30/2024-12/12/2024. She's had lots of atrial ectopy, and seems to be very symptomatic with even short runs of SVT. She did have a pre-syncope episode during her admission H*P which correlated to a short SVT on telemetry. Her afib history is less clear, it appears she was diagnosed >7 years ago but has not had afib episodes captured on her extensive work up otherwise as far as I can tell on my review. She did have a PE (thought to be provoked from control) years prior. She otherwise has a low [id number] score and has elected to discontinue eliquis given her heavy menorrhagia and TESSA. - Telemetry - TTE: EF 50%, mild dilation of LV, no significant valvular disease - Continue home dofetilide - INCREASE metoprolol XL to 25mg qHS - EP consult - holding off on apixaban per patient preference Assessment & Plan (02/22/2025 2:50 PM CDT): History of paroxysmal atrial fibrillation/flutter on dofetilide and metoprolol following with cardiology. Has NICM, female, and reportedly has a distant history of PE thought provoked by hormonal control with no subsequent thromboembolic events since stopping that. - Continue home dofetilide - INCREASE metoprolol XL as elsewhere - Since patient not taking eliquis currently, will hold off for now and defer restarting to outpatient Peripheral neuropathy Essential hypertension Antibiotic enterocolitis Resolved Problems Problem Noted Date Diagnosed Date Resolved Date Status post placement of imp lantable loop recorder 12/21/2022 08/31/2023 Overview (12/21/2022): Added automatically from request for surgery [id number] Induction of Labor 04/15/2018 8 Overview (04/16/2018): 1. Labor: Admit to L&D for IOL for gHTN. Anticipate . CC in plac (placed @ 04/15) with OT @ 8. S/p miso x1. 2. Well Being: Category II, largely category I. 3. ID: GBS unknown, no risk factors, will NOT start PCN. HIV unknown, HIV PCR sent. 4. Indications for UDS: none 5. PNL UTD 6. Method of Feeding: plans to breastfeed 7. Planned method of Contraception:undecided -induced hypertensi on in third trimester 04/15/2018 04/21/2018 Overview (04/15/2018): PI[facility] labs WNL on admission. No BUNCH, vision changes, RUQ pain, SOB on admission and currently. BPs mild to normotensive. Supervision of high risk pre gnancy in third trimester 04/15/2018 04/21/2018 Overview (04/16/2018): Added automatically from request for surgery [id number] Maternal arrhythmia affectin g , antepartum, third trimester 12/06/2017 04/21/2018 Overview (04/01/2018): - Pt reports history of AF, echocardiogram with Dr. Cordova 10/14/17 was WNL. Current maternal condition a ffecting 11/22/2017 04/21/2018 Overview (04/01/2018): - Pt reports h/o pulmonary HTN, echocardiogram at [facility] in 10/14/17 was WNL. - h/o DVT in 2013, prophylactic lovenox at beginning of , will transition to heparin at this time per primary OB Supervision of high-risk 11/01/2017 04/21/2018 Overview (04/15/2018): [x] Co-management vs. [] Full M Care; Referring Provider: Lynn [x] Dating Criteria: 1T US [x] Labs: per records [x] Genetic Screening: desired first look, however, upon chart review only underwent anatomic survey, limited but normal [] CBC/Hgb electrophoresis (if indicated) [x] Early 1hr GTT (if indicated): per primary provider (02/2018) [] UCx: per primary provider [] Pap: per primary provider [x] LD ASA (if indicated) starting at 12 weeks 2nd Tri Labs: [x] Anatomy ultrasound [] CBC/1hr gtt at 24-28wks: [] Flu Shot (May-Aug) [x] Tdap (27-36wks) (02/2018 with primary provider) [] Rhogam at 28 wks (if Rh neg): 3rd Tri Labs: [x] CBC/HIV/RPR/T&S - to obtain records [x] GBS - to obtain records [] GC/CT (if indicated) Counselling [x] MOD: Vaginal [x] Place of delivery: [facility] [] MOC: [] Method of feeding: [] Otr Refrigerated Cdl Truck Driver: [] PP Depression Discussed 10/20/2017 04/27/2018 Overview (04/01/2018): - 04/01: Pt is 38 w 4/7 at this time. She has a h/o DVT in 2013. She is being transitioned from lovenox to heparin at this time per primary OB. - Recommendation IOL at 39 weeks with primary OB. If s/sx of distress prior to that time, consider delivery at [facility]. Joint pain 08/25/2017 04/27/2018 Gastroesophageal reflux dise ase without esophagitis 06/30/2016 04/27/2018 Primary pulmonary hypertension 06/30/2016 04/27/2018 Chronic pelvic pain in female 03/10/2016 04/27/2018 Dyschezia 03/10/2016 04/27/2018 Dysmenorrhea 03/10/2016 04/27/2018 Dyspareunia, female 03/10/2016 04/27/20 18 Microscopic hematuria 03/10/20162017 Other microscopic hematuria 03/10/2016 04/27/2018 Pelvic and perineal pain 03/10/2016 Hay fever 12/16/2015 04/27/2018 Vitamin D deficiency 12/16/2015 018 Asthma 12/11/2009 04/27/2018 Encounters Date Type Department Care Team Description 03/22/2025 9:15 AM CDT Lab [facility] [address] [place] [address] 03/19/2025 Telephone [facility] Medicine Cardiology [address] [facility] Advanced Medicine 8th [place] [address] [place] [address] Elder John MD 03/13/2025 [facility] [address] [place] [address] Liana Gaming 03/06/2025 SHOP/CHAP Subsequent Outreach [facility] OP CASE MANAGEMENT [address] [place] [address] Rochelle Givens, BEARINGIZER 02/27/2025 SHOP/CHAP Initial Outreach [facility] OP CASE MANAGEMENT [address] [place] [address] Rochelle Givens, BEARINGIZER 02/26/2025 SHOP/CHAP Initial Outreach [facility] OP CASE MANAGEMENT [address] [place] [address] Rochelle Givens, BEARINGIZER 02/26/2025 SHOP/CHAP Initial Eligibility Review [facility] OP CASE MANAGEMENT [address] [place] [address] Rochelle Givens, BEARINGIZER 02/21/2025 11:21 PM CDT - 02/25/2025 3:53 PM CDT Hospital Encounter [address] [address] Umm Randhawa MD Van Buren, MD Jose Read Sean C., MD Dao, MD Roxana Hayes Alvin, MD Harris, MD Pao Sánchez Anand Divyang, MD Syncope, unspecified syncope type (Primary Dx); Dilated cardiomyopathy (HCC); Pulmonary hypertension (HCC) Discharge Disposition: Discharge to home or self care 02/14/2025 Telephone [facility] Medicine Cardiology [address] 8th [place] [address] [place] [id number] Elder John MD from Last 3 Months Immunizations Immunization Administration Dates Next Due MMR 04/20/2018(Deferred: No longer n eeded) Surgical History Surgery Date Site/Laterality Comments APPENDECTOMY 11/12/2017 HERNIA REPAIR COLPOSCOPY SECTION 09/13/2017 - 09/12/2018 COLONOSCOPY CHOLECYSTECTOMY ENDOMETRIAL ABLATION GASTRIC BYPASS 12/12/2020 - 01/10/2021 Medical History Medical History Date Comments Pulmonary hypertension (HCC) Pulmonary embolism 2013 TBI (traumatic brain injury) (HCC) Abnormal Pap smear of cervix Endometriosis Migraine s/p botox inj. Depression GERD (gastroesophageal reflux disease) Atrial fibrillation (HCC) Pt. bunch s ILR Asthma RA (rheumatoid arthritis) Deep vein thrombosis (HCC) Fibromyalgia, primary Genetic disorder Peripheral neuropathy Pelvic floor dysfunction Sleep apnea does not wear c pap Family History Medical History Relation Name Comments Cancer Maternal Grandmother Diabetes Other Hypertension Other Migraines Other Stroke Other Heart attack Sister Anesthesia problems Neg Hx Relation Name Status Comments Father Alive Maternal Grandmother Mother Alive Other Sister Social History Tobacco Use Types Packs/Day Years Used Date Smoking Tobacco: Never Smokeless Tobacco: Never Tobacco Cessation:Counseling Given: Not Answered Alcohol Use Standard Drinks/Week Comments Yes 0 (1 standard drink = 0.6 oz pur e alcohol) rarely [employer] Utilities Answer Date Recorded In the past 12 months has [employer], gas, oil, or water [employer] threatened to shut off services in your home? No 02/27/2025 Social Connection and Isolation Panel Answer Date Recorded In a typical week, how many times do you talk on the phone with family, friends, or neighbors? Twice a week 02/27/2025 How often do you get together with friends or re latives? Twice a week 02/27/2025 How often do you attend judaism or shinto serv ices? Never 02/27/2025 Do you belong to any clubs o r organizations such as judaism groups, unions, fraternal or athletic groups, or school groups? No 02/27/2025 How often do you attend meet ings of the clubs or organizations you belong to? Never 02/27/2025 Are you , , di vorced, , never , or living with a partner? 02/27/2025 AUDIT-C Answer Date Recorded Q1: How often do you have a drink containing alc ohol? Monthly or less 12/28/2022 Q2: How many drinks containi ng alcohol do you have on a typical day when you are drinking? 1 or 2 12/28/2022 Q3: How often do you have si x or more drinks on one occasion? Never 12/28/2022 Overall Financial Resource Strain (CARDIA) Answe r Date Recorded How hard is it for you to pa y for the very basics like food, housing, medical care, and heating? Somewhat hard 02/27/2025 PHQ-2 Answer Date Recorded PHQ-2 Total Score (If total score is 3 or more points, staff should administer the PHQ-9) 0 02/22/2025 Hunger Vital Sign Answer Date Recorded Within the past 12 months, y ou worried that your food would run out before you got the money to buy more. Never true 02/28/20 25 Within the past 12 months, t he food you bought just didn't last and you didn't have money to get more. Never true 02/27/2025 PRAPARE - Transportation Answer Date Re corded In the past 12 months, has l ack of transportation kept you from medical appointments or from getting medications? No 02/11 In the past 12 months, has l ack of transportation kept you from meetings, work, or from getting things needed for daily living? No 02/27/2025 Housing Stability Vital Sign Answer Clyde e Recorded In the last 12 months, was t here a time when you were not able to pay the mortgage or rent on time? No 02/27/2025 In the past 12 months, how m any times have you moved where you were living? 0 02/27/2025 At any time in the past 12 m [facility], were you homeless or living in a retirement (including now)? No 02/27/2025 Personal Safety Answer Date Recorded Have you ever been in or are you currently in a harmful physical or emotional relationship or is someone making you feel afraid or unsafe? Denies 02/22/2025 Comments No Sex and Gender Information Value Date Recorded Sex Assigned at Not on file Legal Sex Female 5:47 PM TRIAL MGR Gender Identity Not on file Sexual Orientation Not on file Obstetrics History Para Term AB IAB SAB Ectopic Multiple Livin g Live Births 1 1 1 0 0 0 0 0 0 1 1 Date Outcome GA Total Labor Labor/2nd/3rd Weight Sex Type Anes PTL Emi A1 A5 Name Clin 018 Term 38w 5d 0h 02m 0h 02m 2.59 kg (5 lb 11.4 oz) F CS-LT ranv Epidu ral,S talib N Livin g 1 1 MTSEK A,GIR LCONS Sunita Tarango MD Delivery Location:[facility] amp[facility] ([facility]) Comments Decreased FM earlier in preg avi (having NST's twice a week because of previous issue) Maternal Hx of Afib (SOB at times) Last Filed Vital Signs Vital Sign Reading Time Taken Comments Blood Pressure 103/60 02/25/2025 8:00 AM CDT Pulse 83 02/25/2025 11:25 AM CDT Temperature 36.6 C (97.9 F) 02/25/2025 8:00 AM CDT Respiratory Rate 18 02/25/2025 8:00 AM CDT Oxygen Saturation 100% 02/25/2025 8:00 AM CDT Inhaled Oxygen Concentration - - Weight 93.3 kg (205 lb 11.2 oz) 02/25/2025 4:49 AM CDT Height 157.5 cm (5' 2.01) 02/22/2025 1 0:23 AM CDT Body Mass Index 37.61 02/22/2025 10:23 AM CDT Plan of Treatment Health Maintenance Due Date Last Done Comments Cervical Cancer Screening 1987 Varicella Vaccines (1 of 2 - 13+ 2-dose series) 2000 Hepatitis B Screening 2005 Regular Well Visit/Exam 18-64 2005 Pneumococcal vaccine <65 (1 of 2 - PCV) 2006 HPV Vaccines (1 - 3-dose SCDM series) 2014 Influenza Vaccine (#1) 2025 Depression Screening 02/21/2026 02/21/2025 DTaP/Tdap/Td Vaccine (2 - Td or Tdap) 02/02/2028 Hepatitis C Screening Completed 08/11/2017, 017 Medical Devices Implanted Type Area Alarm Investigator Device Identifier Shelf Expiration Date Model / Serial / Lot Medtronic Cardiac Rhythm Mgmt Linqsys Reveal Linq Mycarelink Insertable Loop Recorder Automatic - [id number] - [id number] Implanted:Qty : 1 on 05/04/2019 by Elder John MD at [facility] Explanted: (Quantity not on file) Implantable Loop Recorder N/A: Chest [employer] 02/25/2020 LINQSYS / [id number] / D Procedures Procedure Name Priority Date/Time Associated Diagnosis Comments EGFR Routine 03/22/2025 9:18 AM CDT DIFFERENTIAL AUTO Routine 03/22/2025 9:1 8 AM CDT IRON PROFILE W/ IBC Routine 03/22/2025 9 :18 AM CDT COMPREHENSIVE METABOLIC PANEL Routine 03/22/2025 9:18 AM CDT CBC WITH AUTO DIFFERENTIAL Routine 03/22/2025 9:18 AM CDT ECG 12-LEAD Routine 02/25/2025 2:29 PM CDT ECG 12-LEAD Routine 02/25/2025 10:59 AM CDT EGFR Routine 02/25/2025 3:30 AM CDT DIFFERENTIAL AUTO Routine 02/25/2025 3:3 0 AM CDT BASIC METABOLIC PANEL Routine 02/25/2025 3:30 AM CDT CBC WITH AUTO DIFFERENTIAL Routine 02/25/2025 3:30 AM CDT MAGNESIUM Routine 02/25/2025 3:30 AM CDT ECG 12-LEAD Routine 02/24/2025 10:20 PM CDT ECG 12-LEAD Routine 02/24/2025 11:21 AM CDT EGFR Routine 02/24/2025 4:01 AM CDT DIFFERENTIAL AUTO Routine 02/24/2025 4:0 1 AM CDT BASIC METABOLIC PANEL Routine 02/24/2025 4:01 AM CDT CBC WITH AUTO DIFFERENTIAL Routine 02/24/2025 4:01 AM CDT MAGNESIUM Routine 02/24/2025 4:01 AM CDT ECG 12-LEAD Routine 02/23/2025 10:04 PM CDT ECG 12-LEAD Routine 02/23/2025 9:59 AM CDT TRANSTHORACIC ECHO (TTE) COMPLETE W DOPPLER/CF W CONTRAST ED Urgent/IP Urgent 02/23/2025 7:57 AM CDT POCT GLUCOSE DEVICE Routine 02/23/2025 6 :48 AM CDT EGFR Routine 02/23/2025 3:11 AM CDT DIFFERENTIAL AUTO Routine 02/23/2025 3:1 1 AM CDT BASIC METABOLIC PANEL Routine 02/23/2025 3:11 AM CDT CBC WITH AUTO DIFFERENTIAL Routine 02/23/2025 3:11 AM CDT MAGNESIUM Routine 02/23/2025 3:11 AM CDT US TRANSVAGINAL IP Routine 02/22/2025 3:59 PM CDT DRUGS OF ABUSE SCREEN, URINE WITH REFLEX CONFIRMATION Routine 02/22/2025 1:22 PM CDT ECG 12-LEAD STAT 02/22/2025 1:45 AM CDT IRON PROFILE W/ IBC STAT 02/21/2025 6 :53 PM CDT THYROID FUNCTION CASCADE STAT 02/21/2025 6:53 PM CDT FERRITIN STAT 02/21/2025 6:53 PM CDT VITAMIN B12 STAT 02/21/2025 6:53 PM CDT RETICULOCYTES STAT 02/21/2025 6:53 PM CDT MAGNESIUM STAT 02/21/2025 6:53 PM CDT EGFR STAT 02/21/2025 6:53 PM CDT DIFFERENTIAL AUTO STAT 02/21/2025 6:5 3 PM CDT TROPONIN I HIGH-SENSITIVITY SERIES (BASELINE, 2HR, 4HR, 6HR) STAT 02/21/2025 6:53 PM CDT COMPREHENSIVE METABOLIC PANEL STAT 02/21/2025 6:53 PM CDT CBC WITH AUTO DIFFERENTIAL STAT 02/21/2025 6:[address] HEAD AND CERVICAL SPINE WO CONTRAST ED 02/21/2025 6:22 PM CDT ECG 12-LEAD Routine 02/21/2025 5:48 PM CDT HEPATITIS C ANTIBODY Routine 08/11/2017 4:04 PM TRIAL MGR Arthralgia, unspecified joint from Last 3 Months or Most Recently Relevant to Health Maintenance Results * eGFR (03/22/2025 9:18 AM CDT) Pathologist [facility] eGFR >90 >=60 mL/min/1. 73 m2 Comment: Interpretive Data Reference Interval Normal >/= 90 mL/min/1.73m2 Mildly decreased* 60 - 89 mL/min/1.73m2 Mildly to moderately decreased 45 - 59 mL/min/1.73m2 Moderately to severely decreased 30 - 44 mL/min/1.73m2 Severely decreased 15 - 29 mL/min/1.73m2 Kidney Failure < 15 mL/min/1.73m2 *Relative to young adult level Estimated glomerular filtration rate is determined by the 2020 CKD-EPI equation recommended by the National Kidney Foundation (A Unifying Approach to GFR Estimation: Recommendations of the NKF-ASK Task Force on Reassessing the Inclusion of Race in Diagnosing Kidney Disease, JASN 2020). The CKD-EPI equation should not be used for patients with unstable renal function and has not been validated in children and those over 70. Current interpretive data was last reviewed 2021. Blood 03/22/2025 9:18 AM CDT 03/22/2025 12:32 PM CDT us Julita Landa MD LAB BLOOD ORDERABLES Final Resul t [facility] [address] Department [place] [address] * Differential, auto (03/22/2025 9:18 AM CDT) Pathologist [facility] Neutrophil abs 4.24 1.50 - 6.50 K/cumm Imm gran abs 0.02 0.00 - 0.10 K/cumm [facility] Lymphocyte abs 1.81 0.80 - 3.30 K/cumm [facility] Monocyte abs 0.54 0.20 - 0.80 K/cumm [facility] Eosinophil abs 0.09 0.00 - 0.50 K/cumm [facility] Basophil abs 0.06 0.00 - 0.10 K/cumm [facility] Neutrophil pct 62.7 % [facility] Comment: Interpretive Data Percent cell count reference ranges are not reported, since discordance with absolute values may lead to misinterpretation of CBC data. Current Interpretive Data was last revised on 2017. Imm gran pct 0.3 % [facility] Comment: Interpretive Data Percent cell count reference ranges are not reported, since discordance with absolute values may lead to misinterpretation of CBC data. Current Interpretive Data was last revised on 2017. Lymphocyte pct 26.8 % [facility] Comment: Interpretive Data Percent cell count reference ranges are not reported, since discordance with absolute values may lead to misinterpretation of CBC data. Current Interpretive Data was last revised on 2017. Monocyte pct 8.0 % [facility] Comment: Interpretive Data Percent cell count reference ranges are not reported, since discordance with absolute values may lead to misinterpretation of CBC data. Current Interpretive Data was last revised on 2017. Eosinophil pct 1.3 % [facility] Comment: Interpretive Data Percent cell count reference ranges are not reported, since discordance with absolute values may lead to misinterpretation of CBC data. Current Interpretive Data was last revised on 2017. Basophil pct 0.9 % [facility] Comment: Interpretive Data Percent cell count reference ranges are not reported, since discordance with absolute values may lead to misinterpretation of CBC data. Current Interpretive Data was last revised on 2017. Blood 03/22/2025 9:18 AM CDT 03/22/2025 12:33 PM CDT us Julita Landa MD LAB BLOOD ORDERABLES Final Resul t [facility] [address] Department [place] [address] * (ABNORMAL) Iron profile w/ IBC (03/22/2025 9:18 AM CDT) Iron 46 35 - 145 mcg/dL TIBC 335 250 - 400 mcg/dL [facility] Transferrin saturation 14(L) 20 - 50 % [facility] Blood 03/22/2025 9:18 AM CDT 03/22/2025 12:32 PM CDT us Julita Landa MD LAB BLOOD ORDERABLES Final Resul t Performing Organization Address [facility] Co de Phone Number [facility] [address] Department [place] [address] * (ABNORMAL) CBC with auto differential (03/22/2025 9:18 AM CDT) Pathologist [facility] WBC 6.76 3.80 - 9.90 K/cumm Hgb 11.1(L) 11.9 - 15.5 g/dL [facility] Hct 36.8 35.6 - 45.5 % [facility] Plt 331 150 - 400 K/cumm [facility] MPV 10.9 9.1 - 12.[address] [facility] RBC 4.21 3.90 - 5.20 M/cumm [facility] MCV 87.4 81.3 - 96.[address] [facility] MCH 26.4(L) 27.1 - 33.[address] [facility] MCHC 30.2(L) 32.3 - 35.7 g/dL [facility] RDW CV 23.8(H) 11.1 - 14.9 % [facility] RDW SD 72.0(H) 35.7 - 48.[address] [facility] NRBC abs 0.00 0.00 - 0.01 K/cumm [facility] Blood 03/22/2025 9:18 AM CDT 03/22/2025 12:33 PM CDT us Julita Landa MD LAB BLOOD ORDERABLES Final Resul t Performing Organization Address City/[facility]/ZIP Co de Phone Number [facility] [address] Department of [employer] [place], [place] [address] * Comprehensive metabolic panel (03/22/2025 9:18 AM CDT) Pathologist [facility] Sodium 139 135 - 145 mmol/L Potassium, pl 4.0 3.3 - 4.9 mmol/L [facility] Chloride 105 97 - 110 mmol/L [facility] CO2 24 22 - 32 mmol/L [facility] Anion gap 10 2 - 15 mmol/L [facility] BUN 11 6 - 25 mg/dL [facility] Creatinine 0.64 0.60 - 1.10 mg/dL [facility] Glucose 73 70 - 199 mg/dL [facility] Comment: Interpretive Data Fasting glucose >/= 126 mg/dl is diagnostic for diabetes. Fasting is defined as no caloric intake for at least 8 hours. Fasting glucose between 100 mg/dl to 125 mg/dl is diagnostic of prediabetes. In a patient with classic symptoms of hyperglycemia or hyperglycemic crisis, a random glucose >/= 200 mg/dl is diagnostic for diabetes. In the absence of unequivocal hyperglycemia, results should be confirmed by repeat testing. The classification and Diagnosis of Diabetes Diabetes Care 202; 46: S19-S40. Current interpretive data was last revised 2022. Calcium 8.7 8.5 - 10.3 mg/dL [facility] Bilirubin, total 0.2 0.1 - 1.2 mg/dL [facility] Protein, pl 7.2 6.5 - 8.5 g/dL [facility] Albumin 3.9 3.5 - 5.0 g/dL [facility] Alk phos 75 40 - 130 Units/L [facility] ALT 23 7 - 45 Units/L [facility] AST 25 10 - 45 Units/L [facility] Blood 03/22/2025 9:18 AM CDT 03/22/2025 12:32 PM CDT us Julita Landa MD LAB BLOOD ORDERABLES Final Resul t [facility] [address] Department [place] [address] * ECG 12 lead (02/25/2025 2:29 PM CDT) Ventricular Rate EKG/Min 83 BPM [facility] Atrial Rate 83 BPM [facility] UT-Interval (MSEC) 192 ms [facility] QRS-Interval (MSEC) 88 ms [facility] QT-Interval (MSEC) 380 ms [facility] QTc 446 ms [facility] P [place] 47 degrees [facility] R [place] -10 degrees [facility] T [place] 2 degrees [facility] Diagnosis Sinus rhythm with Premature atrial complexes with Aberrant conduction Moderate voltage criteria for LVH, may be normal variant ( R in aVL , [place] product ) Borderline ECG When compared with ECG of 25-FEB-2025 10:59, (unconfirmed) T wave inversion no longer evident in Anterior leads QT has shortened Confirmed by CHI PRICE M.D ([id number]) on 02/27/2025 3:31:01 PM [facility] 02/25/2025 2:29 PM CDT 02/27/2025 3:31 PM CDT Lynn Montgomery MD ECG ORDERABLES Final Result Performing Organization Address [facility] Co de Phone Number [facility] * ECG 12 lead (02/25/2025 10:59 AM CDT) Pathologist [facility] Ventricular Rate EKG/Min 86 BPM [facility] Atrial Rate 86 BPM [facility] UT-Interval (MSEC) 188 ms [facility] QRS-Interval (MSEC) 88 ms [facility] QT-Interval (MSEC) 454 ms [facility] QTc 543 ms [facility] P [place] 46 degrees [facility] R [place] -5 degrees [facility] T [place] 2 degrees [facility] Diagnosis Sinus rhythm with Premature atrial complexes with Aberrant conduction Minimal voltage criteria for LVH, may be normal variant ( [place] product ) Nonspecific T wave abnormality Prolonged QT Abnormal ECG When compared with ECG of 24-FEB-2025 22:20, (unconfirmed) No significant change was found Confirmed by RENEE METCALF M.D ([id number]) on 02/26/2025 12:37:13 PM [facility] 02/25/2025 10:5 9 AM CDT 02/26/2025 12:37 PM CDT Lynn Montgomery MD ECG ORDERABLES Final Result [facility] * eGFR (02/25/2025 3:30 AM CDT) eGFR >90 >=60 mL/min/1. 73 m2 Comment: Interpretive Data Reference Interval Normal >/= 90 mL/min/1.73m2 Mildly decreased* 60 - 89 mL/min/1.73m2 Mildly to moderately decreased 45 - 59 mL/min/1.73m2 Moderately to severely decreased 30 - 44 mL/min/1.73m2 Severely decreased 15 - 29 mL/min/1.73m2 Kidney Failure < 15 mL/min/1.73m2 *Relative to young adult level Estimated glomerular filtration rate is determined by the 2020 CKD-EPI equation recommended by the National Kidney Foundation (A Unifying Approach to GFR Estimation: Recommendations of the NKF-ASK Task Force on Reassessing the Inclusion of Race in Diagnosing Kidney Disease, JASN 2020). The CKD-EPI equation should not be used for patients with unstable renal function and has not been validated in children and those over 70. Current interpretive data was last reviewed 2021. Blood 02/25/2025 3:30 AM CDT 02/25/2025 4:22 AM CDT us Janina Vang MD LAB BLOOD ORDERABLES Final Result Performing Organization Address City/[facility] Co de Phone Number [facility] [address] [facility] Department [place] [address] * (ABNORMAL) Differential, auto (02/25/2025 3:30 AM CDT) Pathologist [facility] Neutrophil abs 5.38 1.50 - 6.50 K/cumm Imm gran abs 0.04 0.00 - 0.10 K/cumm [facility] Lymphocyte abs 2.66 0.80 - 3.30 K/cumm [facility] Monocyte abs 0.81(H) 0.20 - 0.80 K/cumm [facility] Eosinophil abs 0.15 0.00 - 0.50 K/cumm [facility] Basophil abs 0.06 0.00 - 0.10 K/cumm [facility] Neutrophil pct 59.2 % [facility] Comment: Interpretive Data Percent cell count reference ranges are not reported, since discordance with absolute values may lead to misinterpretation of CBC data. Current Interpretive Data was last revised on 2017. Imm gran pct 0.4 % [facility] Comment: Interpretive Data Percent cell count reference ranges are not reported, since discordance with absolute values may lead to misinterpretation of CBC data. Current Interpretive Data was last revised on 2017. Lymphocyte pct 29.2 % [facility] Comment: Interpretive Data Percent cell count reference ranges are not reported, since discordance with absolute values may lead to misinterpretation of CBC data. Current Interpretive Data was last revised on 2017. Monocyte pct 8.9 % [facility] Comment: Interpretive Data Percent cell count reference ranges are not reported, since discordance with absolute values may lead to misinterpretation of CBC data. Current Interpretive Data was last revised on 2017. Eosinophil pct 1.6 % [facility] Comment: Interpretive Data Percent cell count reference ranges are not reported, since discordance with absolute values may lead to misinterpretation of CBC data. Current Interpretive Data was last revised on 2017. Basophil pct 0.7 % [facility] Comment: Interpretive Data Percent cell count reference ranges are not reported, since discordance with absolute values may lead to misinterpretation of CBC data. Current Interpretive Data was last revised on 2017. Blood 02/25/2025 3:30 AM CDT 02/25/2025 4:23 AM CDT us Janina Vang MD LAB BLOOD ORDERABLES Final Result [facility] [address] [facility] Department [place] [address] * (ABNORMAL) CBC with auto differential (02/25/2025 3:30 AM CDT) WBC 9.10 3.80 - 9.90 K/cumm Hgb 9.0(L) 11.9 - 15.5 g/dL [facility] Hct 29.7(L) 35.6 - 45.5 % [facility] Plt 389 150 - 400 K/cumm [facility] MPV 9.5 9.1 - 12.3 fL [facility] RBC 3.78(L) 3.90 - 5.20 M/cumm [facility] MCV 78.6(L) 81.3 - 96.4 fL [facility] MCH 23.8(L) 27.1 - 33.3 pg [facility] MCHC 30.3(L) 32.3 - 35.7 g/dL [facility] RDW CV 15.2(H) 11.1 - 14.9 % [facility] RDW SD 42.9 35.7 - 48.1 fL [facility] NRBC abs 0.00 0.00 - 0.01 K/cumm [facility] Blood 02/25/2025 3:30 AM CDT 02/25/2025 4:23 AM CDT Janina Vang MD LAB BLOOD ORDERABLES Final Result Performing Organization Address [facility] Co de Phone Number [facility] [place] [employer] [place] [address] * Magnesium (02/25/2025 3:30 AM CDT) [facility] Magnesium 2.0 1.4 - 2.5 mg/dL Blood 02/25/2025 3:30 AM CDT 02/25/2025 4:22 AM CDT Janina Vang MD LAB BLOOD ORDERABLES Final Result Performing Organization Address City/[facility] Co de Phone Number [facility] [place] [employer] [place] [address] * (ABNORMAL) Basic metabolic panel (02/25/2025 3:30 AM CDT) Pathologist [facility] Sodium 139 135 - 145 mmol/L Potassium, pl 3.9 3.3 - 4.9 mmol/L [facility] Chloride 106 97 - 110 mmol/L [facility] CO2 24 22 - 32 mmol/L [facility] Anion gap 9 2 - 15 mmol/L [facility] BUN 13 6 - 25 mg/dL [facility] Creatinine 0.77 0.60 - 1.10 mg/dL [facility] Glucose 69(L) 70 - 199 mg/dL [facility] Comment: Interpretive Data Fasting glucose >/= 126 mg/dl is diagnostic for diabetes. Fasting is defined as no caloric intake for at least 8 hours. Fasting glucose between 100 mg/dl to 125 mg/dl is diagnostic of prediabetes. In a patient with classic symptoms of hyperglycemia or hyperglycemic crisis, a random glucose >/= 200 mg/dl is diagnostic for diabetes. In the absence of unequivocal hyperglycemia, results should be confirmed by repeat testing. The classification and Diagnosis of Diabetes Diabetes Care 2021; 46: S19-S40. Current interpretive data was last revised 2022. Calcium 8.5 8.5 - 10.3 mg/dL [facility] Blood 02/25/2025 3:30 AM CDT 02/25/2025 4:22 AM CDT us Janina Vang MD LAB BLOOD ORDERABLES Final Result [facility] Department [place] [address] * ECG 12 lead (02/24/2025 10:20 PM CDT) Pathologist [facility] Ventricular Rate EKG/Min 79 BPM [facility] Atrial Rate 79 BPM [facility] UT-Interval (MSEC) 182 ms [facility] QRS-Interval (MSEC) 88 ms [facility] QT-Interval (MSEC) 426 ms [facility] QTc 488 ms [facility] P [place] 41 degrees [facility] R [place] -11 degrees [facility] T [place] -7 degrees [facility] Diagnosis Sinus rhythm with Premature atrial complexes with Aberrant conduction Minimal voltage criteria for LVH, may be normal variant ( R in aVL ) Nonspecific T wave abnormality Prolonged QT Abnormal ECG When compared with ECG of 24-FEB-2025 11:21, (unconfirmed) No significant change was found Confirmed by CHI PRICE M.D ([id number]) on 02/26/2025 12:48:01 PM [facility] 02/24/2025 10:2 0 PM CDT 02/26/2025 12:48 PM CDT Lynn Montgomery MD ECG ORDERABLES Final Result Performing Organization Address [facility] de Phone Number [facility] * ECG 12 lead (02/24/2025 11:21 AM CDT) Ventricular Rate EKG/Min 81 BPM [facility] Atrial Rate 81 BPM [facility] UT-Interval (MSEC) 184 ms [facility] QRS-Interval (MSEC) 86 ms [facility] QT-Interval (MSEC) 386 ms [facility] QTc 448 ms [facility] P [place] 41 degrees [facility] R [place] -12 degrees [facility] T [place] -1 degrees [facility] Diagnosis Sinus rhythm with Premature atrial complexes with Aberrant conduction Minimal voltage criteria for LVH, may be normal variant ( R in aVL ) Nonspecific T wave abnormality Abnormal ECG Confirmed by Mariana Gardner MD ([id number]) on 02/26/2025 2:04:53 PM [facility] 02/24/2025 11:2 1 AM CDT 02/26/2025 2:04 PM CDT Lynn Montgomery MD ECG ORDERABLES Final Result Performing Organization Address [facility] de Phone Number [facility] * eGFR (02/24/2025 4:01 AM CDT) eGFR >90 >=60 mL/min/1. 73 m2 Comment: Interpretive Data Reference Interval Normal >/= 90 mL/min/1.73m2 Mildly decreased* 60 - 89 mL/min/1.73m2 Mildly to moderately decreased 45 - 59 mL/min/1.73m2 Moderately to severely decreased 30 - 44 mL/min/1.73m2 Severely decreased 15 - 29 mL/min/1.73m2 Kidney Failure < 15 mL/min/1.73m2 *Relative to young adult level Estimated glomerular filtration rate is determined by the 2020 CKD-EPI equation recommended by the National Kidney Foundation (A Unifying Approach to GFR Estimation: Recommendations of the NKF-ASK Task Force on Reassessing the Inclusion of Race in Diagnosing Kidney Disease, JASN 2020). The CKD-EPI equation should not be used for patients with unstable renal function and has not been validated in children and those over 70. Current interpretive data was last reviewed 2021. Blood 02/24/2025 4:01 AM CDT 02/24/2025 4:44 AM CDT us Janina Vagn MD LAB BLOOD ORDERABLES Final Result [facility] Department [place] [address] * Differential, auto (02/24/2025 4:01 AM CDT) Pathologist [facility] Neutrophil abs 5.06 1.50 - 6.50 K/cumm Imm gran abs 0.03 0.00 - 0.10 K/cumm [facility] Lymphocyte abs 2.60 0.80 - 3.30 K/cumm [facility] Monocyte abs 0.76 0.20 - 0.80 K/cumm [facility] Eosinophil abs 0.13 0.00 - 0.50 K/cumm [facility] Basophil abs 0.08 0.00 - 0.10 K/cumm [facility] Neutrophil pct 58.5 % [facility] Comment: Interpretive Data Percent cell count reference ranges are not reported, since discordance with absolute values may lead to misinterpretation of CBC data. Current Interpretive Data was last revised on 2017. Imm gran pct 0.3 % [facility] Comment: Interpretive Data Percent cell count reference ranges are not reported, since discordance with absolute values may lead to misinterpretation of CBC data. Current Interpretive Data was last revised on 2017. Lymphocyte pct 30.0 % [facility] Comment: Interpretive Data Percent cell count reference ranges are not reported, since discordance with absolute values may lead to misinterpretation of CBC data. Current Interpretive Data was last revised on 2017. Monocyte pct 8.8 % [facility] Comment: Interpretive Data Percent cell count reference ranges are not reported, since discordance with absolute values may lead to misinterpretation of CBC data. Current Interpretive Data was last revised on 2017. Eosinophil pct 1.5 % [facility] Comment: Interpretive Data Percent cell count reference ranges are not reported, since discordance with absolute values may lead to misinterpretation of CBC data. Current Interpretive Data was last revised on 2017. Basophil pct 0.9 % [facility] Comment: Interpretive Data Percent cell count reference ranges are not reported, since discordance with absolute values may lead to misinterpretation of CBC data. Current Interpretive Data was last revised on 2017. Blood 02/24/2025 4:01 AM CDT 02/24/2025 4:33 AM CDT Janina Vang MD LAB BLOOD ORDERABLES Final Result [facility] Department [place] [address] * (ABNORMAL) CBC with auto differential (02/24/2025 4:01 AM CDT) WBC 8.66 3.80 - 9.90 K/cumm Hgb 8.9(L) 11.9 - 15.5 g/dL [facility] Hct 30.0(L) 35.6 - 45.5 % [facility] Plt 401(H) 150 - 400 K/cumm [facility] MPV 9.3 9.1 - 12.3 fL [facility] RBC 3.79(L) 3.90 - 5.20 M/cumm [facility] MCV 79.2(L) 81.3 - 96.4 fL [facility] MCH 23.5(L) 27.1 - 33.3 pg [facility] MCHC 29.7(L) 32.3 - 35.7 g/dL [facility] RDW CV 15.3(H) 11.1 - 14.9 % [facility] RDW SD 43.5 35.7 - 48.1 fL [facility] NRBC abs 0.00 0.00 - 0.01 K/cumm [facility] Blood 02/24/2025 4:01 AM CDT 02/24/2025 4:33 AM CDT Janina Vang MD LAB BLOOD ORDERABLES Final Result Performing Organization Address City/[facility] Co de Phone Number [facility] [place] [address] * Magnesium (02/24/2025 4:01 AM CDT) [facility] Magnesium 2.0 1.4 - 2.5 mg/dL Blood 02/24/2025 4:01 AM CDT 02/24/2025 4:44 AM CDT Janina Vang MD LAB BLOOD ORDERABLES Final Result Performing Organization Address [facility] de Phone Number [facility] [place] [employer] [place] [address] * Basic metabolic panel (02/24/2025 4:01 AM CDT) [facility] Sodium 138 135 - 145 mmol/L Potassium, pl 3.9 3.3 - 4.9 mmol/L [facility] Chloride 105 97 - 110 mmol/L [facility] CO2 25 22 - 32 mmol/L [facility] Anion gap 8 2 - 15 mmol/L [facility] BUN 13 6 - 25 mg/dL [facility] Creatinine 0.77 0.60 - 1.10 mg/dL [facility] Glucose 73 70 - 199 mg/dL [facility] Comment: Interpretive Data Fasting glucose >/= 126 mg/dl is diagnostic for diabetes. Fasting is defined as no caloric intake for at least 8 hours. Fasting glucose between 100 mg/dl to 125 mg/dl is diagnostic of prediabetes. In a patient with classic symptoms of hyperglycemia or hyperglycemic crisis, a random glucose >/= 200 mg/dl is diagnostic for diabetes. In the absence of unequivocal hyperglycemia, results should be confirmed by repeat testing. The classification and Diagnosis of Diabetes Diabetes Care 2021; 46: S19-S40. Current interpretive data was last revised 2022. Calcium 8.7 8.5 - 10.3 mg/dL [facility] Blood 02/24/2025 4:01 AM CDT 02/24/2025 4:44 AM CDT us Janina Vang MD LAB BLOOD ORDERABLES Final Result Performing Organization Address City/[facility] Co de Phone Number [facility] Department [place] [address] * ECG 12 lead (02/23/2025 10:04 PM CDT) Pathologist [facility] Ventricular Rate EKG/Min 75 BPM [facility] Atrial Rate 75 BPM [facility] UT-Interval (MSEC) 194 ms [facility] QRS-Interval (MSEC) 86 ms [facility] QT-Interval (MSEC) 424 ms [facility] QTc 473 ms [facility] P [place] 37 degrees [facility] R [place] -11 degrees [facility] T [place] -11 degrees [facility] Diagnosis Sinus rhythm with frequent premature atrial beats with aberrant conduction Minimal voltage criteria for LVH, may be normal variant ( R in aVL ) Nonspecific T wave abnormality Prolonged QT Abnormal ECG When compared with ECG of 23-FEB-2025 09:59, (unconfirmed) premature atrial complexs are now Present Premature atrial complexes are no longer Present QT has lengthened Confirmed by RENEE METCALF M.D ([id number]) on 02/26/2025 12:36:24 PM [facility] 02/23/2025 10:0 4 PM CDT 02/26/2025 12:36 PM CDT us Lynn Montgomery MD ECG ORDERABLES Final Result Performing Organization Address City/[facility]/ZIP Co de Phone Number [facility] * ECG 12 lead (02/23/2025 9:59 AM CDT) Ventricular Rate EKG/Min 104 BPM [facility] Atrial Rate 104 BPM [facility] UT-Interval (MSEC) 202 ms [facility] QRS-Interval (MSEC) 84 ms [facility] QT-Interval (MSEC) 322 ms [facility] QTc 423 ms [facility] P [place] 82 degrees [facility] R [place] -15 degrees [facility] T [place] -1 degrees [facility] Diagnosis Sinus tachycardia with Premature atrial complexes Minimal voltage criteria for LVH, may be normal variant ( R in aVL ) Nonspecific T wave abnormality Abnormal ECG When compared with ECG of 23-DEC-2023 22:34, No significant change was found Confirmed by Mariana Gardner MD ([id number]) on 02/26/2025 2:07:00 PM [facility] 02/23/2025 9:59 AM CDT 02/26/2025 2:07 PM CDT us Lynn Montgomery MD ECG ORDERABLES Final Result [facility] * TRANSTHORACIC ECHO (TTE) COMPLETE W DOPPLER/CF W CONTRAST (02/23/2025 7:57 AM CDT) Pathologist [facility] EF Mod BP 52 % CONS SCIMAGE Anatomical Region Laterality Modality Ultrasound 02/23/2025 7:05 AM CDT Narrative 02/23/2025 8:52 AM CDT [facility] [place] [address] Transthoracic Echocardiographic Report Patient Name: ZEE BIRCH C : 1985 (39y 9m) Gender: F Study Date: 02/23/2025 07:05:40 AM Ht(Inch): 62 Wt(Lb): 210.98 BSA: 2.05 Furniture Repairer: Nandini Kidd RDCS Location: [id number] Order Provider: SAWYER MCKEON BMI: 38.58 BP: 128 / 57 Ref Provider: SAWYER MCKEON - PROCEDURES: Echocardiographic Report: Transthoracic complete echo with strain imaging and contrast, 2D, spectral and tissue Doppler, color flow Doppler, M-mode. Contrast: Contrast Enhancement was Employed: Due to suboptimal image quality with inadequate visualization of at least 2 of 16 LV wall segments in any view after initial imaging. Perflutren contrast was administered using the volume necessary to obtain adequate images. 0.4 ml Optison Administered, (2.6 ml wasted). INDICATIONS: Atrial fibrillation and Cardiomyopathy. CONCLUSIONS: 1. Moderately dilated left ventricle based on volume index. Normal LV wall thickness. Mildly depressed left ventricular systolic function. The Ejection Fraction (Ruffin's) is measured at 52 %. Normal diastolic function. The average global longitudinal strain is abnormal. 2. Normal right ventricular size. Normal right ventricular systolic function. 3. There is no significant valvular heart disease. 4. The Estimated RVSP is : 10.0 mmHg. COMPARISONS: No change compared to prior study on: 05/04/24. ATTESTATION: I have personally reviewed and interpreted this study without fellow or resident. - DISCLAIMER: The study images and the final report will be retained in the patient chart by the Echo Laboratory for the legally required time period. This chart constitutes the legal record of any testing performed. FINDINGS: Left Ventricle: Moderately dilated left ventricle based on volume index. Normal LV wall thickness. Mildly depressed left ventricular systolic function. The Ejection Fraction (Ruffin's) is measured at 52 %. Normal diastolic function. The average global longitudinal strain is abnormal. The LV global strain is: -14.2 %. Right Ventricle: Normal right ventricular size. Normal right ventricular systolic function. Left Atrium: The left atrium is normal in size. Right Atrium: The right atrium is normal in size. Atrial Septum: Normal interatrial septum. There is an interatrial septal aneurysm. Mitral Valve: Normal mitral valve structure. No mitral regurgitation. No stenosis present. Aortic Valve: Normal trileaflet aortic valve. No aortic regurgitation. No aortic valve stenosis. The mean transaortic gradient is 5 mmHg. The aortic valve area by the continuity equation (using VTI) is 2.2 cm2. Aortic valve dimensionless index is 0.67. Tricuspid Valve: Normal tricuspid valve structure. The Estimated RVSP is : 10.0 mmHg. No tricuspid valve stenosis. Trivial Tricuspid regurgitation. Pulmonic Valve: Normal pulmonic valve structure. Mild pulmonic regurgitation. No pulmonic valve stenosis present. Pericardium: Normal pericardium without pericardial effusion. Aorta: Normal aortic root size at sinuses of Valsalva. Normal aortic root size when indexed. IVC: IVC is normal in size. The IVC was <2.1 cm and collapsibility >50%. (est. RA pressure 0-5 mmHg). PASP: Normal estimated pulmonary artery systolic pressure. Rhythm: Normal Sinus rhythm was seen during the study. Frequent isolated atrial premature contractions noted during the exam. MEASUREMENTS: 2D/MM Value Range Doppler Value Range LVIDd 2D 4.95 cm [ 3.80 - 5.20 ] AV Peak Andrea 1.4 m/s [ 1.0 - 1.7 ] LVIDs 2D 3.68 cm [ 2.20 - 3.50 ] AV Peak PG 7.84 mmHg IVSd 2D 0.76 cm [ 0.60 - 0.90 ] AV Mean PG 5 mmHg LVPWd 2D 0.67 cm [ 0.60 - 0.90 ] AV VTI 27.7 cm LV Thickness Ratio 1.1 LVOT Peak Andrea 0.9 m/s [ 0.7 - 1.1 ] LV FS 2D 25.69 % [ 27.00 - 45.00 ] LVOT Peak PG 3.24 mmHg LV Mass 2D 119.64 g LVOT Mean PG 2 mmHg LV Mass Index 2D 58.36 g/m2 LVOT VTI 18.5 cm RWT 0.27 LVOT Diam 2.05 cm EDV Mod BP 146.01 ml [ 46.00 - 106.00 ] PAMELA VTI 2.20 cm2 LV EDV Index 71.22 ml/m2 LVOT/AV VTI 0.67 - Dimensionless index (DVI) ESV Mod BP 70.71 ml [ 14.00 - 42.00 ] MV E Peak Andrea 0.7 m/s [ 0.6 - 1.3 ] EF Mod BP 52 % [ 54 - 74 ] MV A Peak Andrea 0.6 m/s [ 1.0 - 1.2 ] LV GLS -14.2 % [ -25.0 - -18.0 ] MV E/A 1.4 ratio [ 0.8 - 1.5 ] LA Length 4C 5.02 cm MV Decel Time 137.96 msec [ 104.00 - 258.00 ] LA Length 2C 5.14 cm Med E` Andrea 13.4 cm/sec [ 8.0 - 25.0 ] LA Volume BP 53.07 ml Lat E` Andrea 13.6 cm/sec [ 10.0 - 25.0 ] LA Volume Index 25.89 ml/m2 [ 16.00 - 34.00 ] Average E/E` 5.19 RV Base Dimen 2D 3.9 cm [ 2.5 - 4.2 ] RV S` 11.76 cm/sec TAPSE 2.54 cm [ 1.71 - 5.00 ] TR Peak Andrea 1.7 m/s [ 1.0 - 2.8 ] RA Volume 20.54 ml TR Peak PG 11.6 mmHg RA Volume Index 10.02 ml/m2 PV Peak Andrea 1.1 m/s [ 0.4 - 0.8 ] IVC Diam 1.55 cm PV Peak PG 4.84 mmHg AoR Diam 2D 2.72 cm [ 2.70 - 3.70 ] PI ED Andrea 67.97 m/sec Ao Root Index 1.33 cm/m2 [ 1.00 - 2.00 ] Electronically Signed By: Gregory Reno MD 02/23/2025 8:52:26 AM CDT Procedure Note Gregory Kwon MD - 02/23/2025 [facility] [place] [address] Transthoracic Echocardiographic Report Patient Name: ZEE BIRCH C : 1985 (39y 9m) Gender: F Study Date: 02/23/2025 07:05:40 AM Ht(Inch): 62 Wt(Lb): 210.98 BSA: 2.05 Furniture Repairer: Nandini Kidd [facility] Location: [id number] Order Provider:SAWYER MCKEON BMI: 38.58 BP: 128 / 57 Ref Provider: SAWYER MCKEON - PROCEDURES: Echocardiographic Report: Transthoracic complete echo with strain imagingand contrast, 2D, spectral and tissue Doppler, color flow Doppler, M-mode. Contrast: Contrast Enhancement was Employed: Due to suboptimal imagequality with inadequate visualization of at least 2 of 16 LV wall segments in any viewafter initial imaging. Perflutren contrast was administered using the volume necessaryto obtain adequate images. 0.4 ml Optison Administered, (2.6 ml wasted). INDICATIONS: Atrial fibrillation and Cardiomyopathy. CONCLUSIONS: 1. Moderately dilated left ventricle based on volume index. Normal LV wallthickness. Mildly depressed left ventricular systolic function. The Ejection Fraction(Ruffin's) is measured at 52 %. Normal diastolic function. The average globallongitudinal strain is abnormal. 2. Normal right ventricular size. Normal right ventricular systolicfunction. 3. There is no significant valvular heart disease. 4. The Estimated RVSP is : 10.0 mmHg. COMPARISONS: No change compared to prior study on: 05/04/24. ATTESTATION: I have personally reviewed and interpreted this study without fellow orresident. - DISCLAIMER: The study images and the final report will be retained in the patientchart by the Echo Laboratory for the legally required time period. This chart constitutesthe legal record of any testing performed. FINDINGS: Left Ventricle: Moderately dilated left ventricle based on volume index.Normal LV wall thickness. Mildly depressed left ventricular systolic function. TheEjection Fraction (Ruffin's) is measured at 52 %. Normal diastolic function. The averageglobal longitudinal strain is abnormal. The LV global strain is: -14.2 %. Right Ventricle: Normal right ventricular size. Normal right ventricularsystolic function. Left Atrium: The left atrium is normal in size. Right Atrium: The right atrium is normal in size. Atrial Septum: Normal interatrial septum. There is an interatrial septalaneurysm. Mitral Valve: Normal mitral valve structure. No mitral regurgitation. Nostenosis present. Aortic Valve: Normal trileaflet aortic valve. No aortic regurgitation. Noaortic valve stenosis. The mean transaortic gradient is 5 mmHg. The aortic valve areaby the continuity equation (using VTI) is 2.2 cm2. Aortic valve dimensionlessindex is 0.67. Tricuspid Valve: Normal tricuspid valve structure. The Estimated RVSP is :10.0 mmHg. No tricuspid valve stenosis. Trivial Tricuspid regurgitation. Pulmonic Valve: Normal pulmonic valve structure. Mild pulmonicregurgitation. No pulmonic valve stenosis present. Pericardium: Normal pericardium without pericardial effusion. Aorta: Normal aortic root size at sinuses of Valsalva. Normal aortic rootsize when indexed. IVC: IVC is normal in size. The IVC was <2.1 cm and collapsibility >50%.(est. RA pressure 0-5 mmHg). PASP: Normal estimated pulmonary artery systolic pressure. Rhythm: Normal Sinus rhythm was seen during the study. Frequent isolatedatrial premature contractions noted during the exam. MEASUREMENTS: 2D/MM Value Range DopplerValue Range LVIDd 2D 4.95 cm [ 3.80 - 5.20 ] AV Peak Vel1.4 m/s [ 1.0 - 1.7 ] LVIDs 2D 3.68 cm [ 2.20 - 3.50 ] AV Peak PG7.84 mmHg IVSd 2D 0.76 cm [ 0.60 - 0.90 ] AV Mean PG5 mmHg LVPWd 2D 0.67 cm [ 0.60 - 0.90 ] AV VTI27.7 cm LV Thickness Ratio 1.1 LVOT Peak Vel0.9 m/s [ 0.7 - 1.1 ] LV FS 2D 25.69 % [ 27.00 - 45.00 ] LVOT Peak PG3.24 mmHg LV Mass 2D 119.64 g LVOT Mean PG2 mmHg LV Mass Index 2D 58.36 g/m2 LVOT VTI18.5 cm RWT 0.27 LVOT Diam2.05 cm EDV Mod BP 146.01 ml [ 46.00 - 106.00 ] PAMELA VTI2.20 cm2 LV EDV Index 71.22 ml/m2 LVOT/AV VTI0.67 - Dimensionless index (DVI) ESV Mod BP 70.71 ml [ 14.00 - 42.00 ] MV E Peak Vel0.7 m/s [ 0.6 - 1.3 ] EF Mod BP 52 % [ 54 - 74 ] MV A Peak Vel0.6 m/s [ 1.0 - 1.2 ] LV GLS -14.2 % [ -25.0 - -18.0 ] MV E/A1.4 ratio [ 0.8 - 1.5 ] LA Length 4C 5.02 cm MV Decel Hvji855.96 msec [ 104.00 - 258.00 ] LA Length 2C 5.14 cm Med E` Vel13.4 cm/sec [ 8.0 - 25.0 ] LA Volume BP 53.07 ml Lat E` Vel13.6 cm/sec [ 10.0 - 25.0 ] LA Volume Index 25.89 ml/m2 [ 16.00 - 34.00 ] Average E/E`5.19 RV Base Dimen 2D 3.9 cm [ 2.5 - 4.2 ] RV S`11.76 cm/sec TAPSE 2.54 cm [ 1.71 - 5.00 ] TR Peak Vel1.7 m/s [ 1.0 - 2.8 ] RA Volume 20.54 ml TR Peak PG11.6 mmHg RA Volume Index 10.02 ml/m2 PV Peak Vel1.1 m/s [ 0.4 - 0.8 ] IVC Diam 1.55 cm PV Peak PG4.84 mmHg AoR Diam 2D 2.72 cm [ 2.70 - 3.70 ] PI ED Vel67.97 m/sec Ao Root Index 1.33 cm/m2 [ 1.00 - 2.00 ] Electronically Signed By: Gregory Reno MD 02/23/2025 8:52:26 AM CDT us Sawyer Mckeon MD CV ECHO PROCEDURES Final Result * POCT glucose (02/23/2025 6:48 AM CDT) Glucose, POC 76 70 - 199 mg/dL Blood 02/23/2025 6:48 AM CDT 02/23/2025 6:48 AM CDT us Lynn Montgomery MD LAB POCT ORDERABLES - DEVICE Final Result Performing Organization Address City/State/[facility] Co de Phone Number [facility] Department [place] [address] * eGFR (02/23/2025 3:11 AM CDT) eGFR >90 >=60 mL/min/1. 73 m2 Comment: Interpretive Data Reference Interval Normal >/= 90 mL/min/1.73m2 Mildly decreased* 60 - 89 mL/min/1.73m2 Mildly to moderately decreased 45 - 59 mL/min/1.73m2 Moderately to severely decreased 30 - 44 mL/min/1.73m2 Severely decreased 15 - 29 mL/min/1.73m2 Kidney Failure < 15 mL/min/1.73m2 *Relative to young adult level Estimated glomerular filtration rate is determined by the 2020 CKD-EPI equation recommended by the National Kidney Foundation (A Unifying Approach to GFR Estimation: Recommendations of the NKF-ASK Task Force on Reassessing the Inclusion of Race in Diagnosing Kidney Disease, JASN 2020). The CKD-EPI equation should not be used for patients with unstable renal function and has not been validated in children and those over 70. Current interpretive data was last reviewed 2021. Blood 02/23/2025 3:11 AM CDT 02/23/2025 4:25 AM CDT Janina Vang MD LAB BLOOD ORDERABLES Final Result [facility] Department [place] [address] * Differential, auto (02/23/2025 3:11 AM CDT) Neutrophil abs 4.09 1.50 - 6.50 K/cumm Imm gran abs 0.03 0.00 - 0.10 K/cumm [facility] Lymphocyte abs 2.67 0.80 - 3.30 K/cumm [facility] Monocyte abs 0.71 0.20 - 0.80 K/cumm [facility] Eosinophil abs 0.15 0.00 - 0.50 K/cumm [facility] Basophil abs 0.07 0.00 - 0.10 K/cumm [facility] Neutrophil pct 53.0 % [facility] Comment: Interpretive Data Percent cell count reference ranges are not reported, since discordance with absolute values may lead to misinterpretation of CBC data. Current Interpretive Data was last revised on 2017. Imm gran pct 0.4 % [facility] Comment: Interpretive Data Percent cell count reference ranges are not reported, since discordance with absolute values may lead to misinterpretation of CBC data. Current Interpretive Data was last revised on 2017. Lymphocyte pct 34.6 % [facility] Comment: Interpretive Data Percent cell count reference ranges are not reported, since discordance with absolute values may lead to misinterpretation of CBC data. Current Interpretive Data was last revised on 2017. Monocyte pct 9.2 % [facility] Comment: Interpretive Data Percent cell count reference ranges are not reported, since discordance with absolute values may lead to misinterpretation of CBC data. Current Interpretive Data was last revised on 2017. Eosinophil pct 1.9 % [facility] Comment: Interpretive Data Percent cell count reference ranges are not reported, since discordance with absolute values may lead to misinterpretation of CBC data. Current Interpretive Data was last revised on 2017. Basophil pct 0.9 % [facility] Comment: Interpretive Data Percent cell count reference ranges are not reported, since discordance with absolute values may lead to misinterpretation of CBC data. Current Interpretive Data was last revised on 2017. Blood 02/23/2025 3:11 AM CDT 02/23/2025 4:26 AM CDT us Janina Vang MD LAB BLOOD ORDERABLES Final Result Performing Organization Address [facility] Co de Phone Number [facility] Department [place] [address] * (ABNORMAL) CBC with auto differential (02/23/2025 3:11 AM CDT) WBC 7.72 3.80 - 9.90 K/cumm Hgb 8.7(L) 11.9 - 15.5 g/dL [facility] Hct 28.8(L) 35.6 - 45.5 % [facility] Plt 374 150 - 400 K/cumm [facility] MPV 10.0 9.1 - 12.3 fL [facility] RBC 3.67(L) 3.90 - 5.20 M/cumm [facility] MCV 78.5(L) 81.3 - 96.4 fL [facility] MCH 23.7(L) 27.1 - 33.3 pg [facility] MCHC 30.2(L) 32.3 - 35.7 g/dL [facility] RDW CV 15.2(H) 11.1 - 14.9 % [facility] RDW SD 42.7 35.7 - 48.1 fL [facility] NRBC abs 0.00 0.00 - 0.01 K/cumm [facility] Blood 02/23/2025 3:11 AM CDT 02/23/2025 4:26 AM CDT Janina Vang MD LAB BLOOD ORDERABLES Final Result [facility] Department [place] [address] * Magnesium (02/23/2025 3:11 AM CDT) [facility] Magnesium 2.1 1.4 - 2.5 mg/dL Blood 02/23/2025 3:11 AM CDT 02/23/2025 4:25 AM CDT Janina Vang MD LAB BLOOD ORDERABLES Final Result Performing Organization Address [facility] Co de Phone Number [facility] [place] [address] * (ABNORMAL) Basic metabolic panel (02/23/2025 3:11 AM CDT) [facility] Sodium 139 135 - 145 mmol/L Potassium, pl 3.8 3.3 - 4.9 mmol/L [facility] Chloride 105 97 - 110 mmol/L [facility] CO2 24 22 - 32 mmol/L [facility] Anion gap 10 2 - 15 mmol/L [facility] BUN 14 6 - 25 mg/dL [facility] Creatinine 0.70 0.60 - 1.10 mg/dL [facility] Glucose 66(L) 70 - 199 mg/dL [facility] Comment: Interpretive Data Fasting glucose >/= 126 mg/dl is diagnostic for diabetes. Fasting is defined as no caloric intake for at least 8 hours. Fasting glucose between 100 mg/dl to 125 mg/dl is diagnostic of prediabetes. In a patient with classic symptoms of hyperglycemia or hyperglycemic crisis, a random glucose >/= 200 mg/dl is diagnostic for diabetes. In the absence of unequivocal hyperglycemia, results should be confirmed by repeat testing. The classification and Diagnosis of Diabetes Diabetes Care 202; 46: S19-S40. Current interpretive data was last revised 2022. Calcium 8.5 8.5 - 10.3 mg/dL [facility] Blood 02/23/2025 3:11 AM CDT 02/23/2025 4:25 AM CDT us Janina Vang MD LAB BLOOD ORDERABLES Final Result [facility] Department [place] [address] * US Transvaginal (02/22/2025 3:59 PM CDT) Anatomical Region Laterality Modality Pelvis N/A Ultrasound 02/22/2025 4:59 PM CDT Impressions 02/22/2025 4:59 PM CDT 1. No sonographic explanation for the patient's reported menorrhagia. Electronically signed by: Moose Meng M.D., Ph.D Narrative 02/22/2025 4:59 PM CDT EXAMINATION: TRANSVAGINAL PELVIC SONOGRAM HISTORY: Menorrhagia COMPARISON: 09/11/2022 FINDINGS: Uterus: The uterus is anteverted and has a length of 8.1 cm, AP dimension of 4.4 cm, and transverse dimension of 4.4 cm. The endometrium measures 11 mm in thickness. There are no uterine fibroids. Right ovary: The right ovary measures 2.9 cm x 2.3 cm x 3.5 cm. There is a simple cyst that measures up to 2.6 cm in the right ovary. Left ovary: The left ovary measures 2.9 cm x 3.4 cm x 1.9 cm. Ovarian follicle present. Other: No abnormal masses or fluid collections are visualized in either adnexal region. Procedure Note Moose Meng MD PhD - 02/22/2025 EXAMINATION: TRANSVAGINAL PELVIC SONOGRAM HISTORY: Menorrhagia COMPARISON: 09/11/2022 FINDINGS: Uterus: The uterus is anteverted and has a length of 8.1 cm, AP dimension of 4.4 cm, and transverse dimension of 4.4 cm. The endometrium measures 11 mm in thickness. There are no uterine fibroids. Right ovary: The right ovary measures 2.9 cm x 2.3 cm x 3.5 cm. There is a simple cyst that measures up to 2.6 cm in the right ovary. Left ovary: The left ovary measures 2.9 cm x 3.4 cm x 1.9 cm. Ovarian follicle present. Other: No abnormal masses or fluid collections are visualized in either adnexal region. IMPRESSION: 1. No sonographic explanation for the patient's reported menorrhagia. Electronically signed by: Moose Meng M.D., Ph.D Sawyer Mckeon MD [facility] PROCEDURES Final Result * Drugs of Abuse Screen, Urine with Reflex Confirmation (02/22/2025 1:22 PM CDT) Amphetamine, ur Not Detected CutOff 500ng/mL Comment: Interpretive Data - Amphetamines: Samples containing greater than 500 ng/mL d-methamphetamine or other cross-reacting amphetamine compounds are reported as positive. Amphetamine immunoassays are subject to significant false positive rates due to cross-reactivity of non-amphetamine drugs. Confirmatory testing required for definitive results. Current Interpretive Data was last reviewed 2023. Barbiturates, ur Not Detected CutOff 200ng/mL [facility] Comment: Interpretive Data - Barbiturates: Samples containing greater than 200 ng/mL secobarbital or other cross-reacting barbiturate compounds are reported as positive. False positive and false negative results are possible. Confirmatory testing required for definitive results. Current Interpretive Data was last reviewed 2023. Benzodiazepines, ur Not Detected CutOff 100ng/mL [facility] Comment: Interpretive Data - Benzodiazepines: Samples containing greater than 100 ng/mL nordiazepam or other cross-reacting compounds are reported as positive. False positive and false negative results are possible. Confirmatory testing required for definitive results. Current Interpretive Data was last reviewed 2023. Cannabinoids, ur Not Detected CutOff 50 ng/mL CERNER [facility] Comment: Interpretive Data - Cannabinoids: Samples containing greater than 50 ng/mL delta-9 THC -COOH or other cross- reacting compounds are reported as positive. False positive and false negative results are possible. Confirmatory testing required for definitive results. Current Interpretive Data was last reviewed 2023. Cocaine, ur Not Detected CutOff 150ng/mL [facility] Comment: Interpretive Data - Cocaine: Samples containing greater than 150 ng/mL benzoylecgonine or other cross- reacting compounds are reported as positive. False positive and false negative results are possible. Confirmatory testing required for definitive results. Current Interpretive Data was last reviewed 2023. Fentanyl, Ur Not Detected CutOff 5 ng/mL [facility] Comment: Interpretive Data - Fentanyl: Samples containing greater than 5 ng/mL norfentanyl, fentanyl, or other cross-reacting fentanyl compounds are reported as positive. False positive and false negative results are possible. Confirmatory testing required for definitive results. Current Interpretive Data was last reviewed 2023. Methadone, ur Not Detected CutOff 300ng/mL [facility] Comment: Interpretive Data - Methadone: Samples containing greater than 300 ng/mL d,l-methadone or other cross-reacting compounds are reported as positive. False positive and false negative results are possible. Confirmatory testing required for definitive results. Current Interpretive Data was last reviewed 2023. Opiates, ur Not Detected CutOff 300ng/mL AND[facility] Comment: Interpretive Data - Opiates: Samples containing greater than 300 ng/mL morphine or other cross-reacting compounds are reported as positive. False positive and false negative results are possible. Confirmatory testing required for definitive results. Current Interpretive Data was last reviewed 2023. Oxycodone, ur Not Detected CutOff 100ng/mL [facility] Comment: Interpretive Data - Oxycodone: Samples containing greater than 100 ng/mL oxycodone or other cross-reacting compounds are reported as positive. False positive and false negative results are possible. Confirmatory testing required for definitive results. Current Interpretive Data was last reviewed 2023. Phencyclidine, ur Not Detected CutOff 25 ng/mL [facility] Comment: Interpretive Data - Phencyclidine: Samples containing greater than 25 ng/mL phencyclidine or other cross-reacting compounds are reported as positive. False positive and false negative results are possible. Confirmatory testing required for definitive results. Current Interpretive Data was last reviewed 2023. Urine Creatinine 148 mg/dL [facility] Comment: Interpretive Data Urine Creatinine: < 10 mg/dL is extremely dilute = or > 10 but < 20 mg/dL is dilute = or > 20 mg/dL is normal Current Interpretive Data was last revised on 2017. Urine 02/22/2025 1:22 PM CDT 02/22/2025 2:18 PM CDT Narrative [facility] - 02/22/2025 3:05 PM CDT Drug of Abuse screening is performed by immunoassay for medical purposes only. This is not to be used for Pain Management purposes. If Detected, confirmation testing will be performed for Amphetamines, Cocaine, Fentanyl, Methadone, Opiates, Oxycodone or Phencyclidine. Sawyer Mckeon MD LAB URINE ORDERABLES Final Resul t Performing Organization Address [facility] Co de Phone Number [facility] Department [place] [address] * ECG 12-LEAD (02/22/2025 1:45 AM CDT) Narrative [facility] - 02/22/2025 1:45 AM CDT Umm Randhawa MD 02/22/2025 1:46 AM ECG 12 lead Date/Time: 02/22/2025 1:45 AM Performed by: Umm Randhawa MD Authorized by: Alex Melvin MD Rate: ECG rate: 82 ECG rate assessment: normal Rhythm: Rhythm: sinus rhythm Ectopy: Ectopy: none QRS: QRS axis: Normal QRS intervals: Normal Conduction: Conduction: normal ST segments: ST segments: Normal T waves: T waves: normal Previous ECG: Previous ECG: Compared to current Date of previous EC11/27/2024 Interpretation: Interpretation: No acute injury pattern Recommended Follow-up: Recommended follow up: further workup in the ED Alex Melvin MD ECG ORDERABLES Fin al Result Performing Organization Address [facility] Co de Phone Number [facility] * Troponin I high-sensitivity series (baseline, 2hr, 4hr, 6hr) (02/21/2025 6:53 PM CDT) Trop I hs <4 <=17 ng/L Comment: Interpretive Data For further hscTnI resources including the diagnostic algorithm and an aid in interpretation, copy and paste this link: [email or web address] Current Interpretive Data last revised 2020. Blood 02/21/2025 6:53 PM CDT 02/21/2025 7:07 PM CDT Umm Randhawa MD LAB BLOOD ORDERABLES Final Result Performing Organization Address [facility] Co de Phone Number [facility] [place] [address] * eGFR (02/21/2025 6:53 PM CDT) eGFR 75 >=60 mL/min/1. 73 m2 Comment: Interpretive Data Reference Interval Normal >/= 90 mL/min/1.73m2 Mildly decreased* 60 - 89 mL/min/1.73m2 Mildly to moderately decreased 45 - 59 mL/min/1.73m2 Moderately to severely decreased 30 - 44 mL/min/1.73m2 Severely decreased 15 - 29 mL/min/1.73m2 Kidney Failure < 15 mL/min/1.73m2 *Relative to young adult level Estimated glomerular filtration rate is determined by the 2020 CKD-EPI equation recommended by the National Kidney Foundation (A Unifying Approach to GFR Estimation: Recommendations of the NKF-ASK Task Force on Reassessing the Inclusion of Race in Diagnosing Kidney Disease, JASN 1). The CKD-EPI equation should not be used for patients with unstable renal function and has not been validated in children and those over 70. Current interpretive data was last reviewed 2021. Blood 02/21/2025 6:53 PM CDT 02/21/2025 7:07 PM CDT us Umm Randhawa MD LAB BLOOD ORDERABLES Final Result Performing Organization Address City/[facility]/ZIP Co de Phone Number [facility] Department [place] [address] * Differential, auto (02/21/2025 6:53 PM CDT) Neutrophil abs 5.59 1.50 - 6.50 K/cumm Imm gran abs 0.03 0.00 - 0.10 K/cumm [facility] Lymphocyte abs 2.38 0.80 - 3.30 K/cumm [facility] Monocyte abs 0.67 0.20 - 0.80 K/cumm [facility] Eosinophil abs 0.14 0.00 - 0.50 K/cumm [facility] Basophil abs 0.06 0.00 - 0.10 K/cumm [facility] Neutrophil pct 63.0 % [facility] Comment: Interpretive Data Percent cell count reference ranges are not reported, since discordance with absolute values may lead to misinterpretation of CBC data. Current Interpretive Data was last revised on 2017. Imm gran pct 0.3 % [facility] Comment: Interpretive Data Percent cell count reference ranges are not reported, since discordance with absolute values may lead to misinterpretation of CBC data. Current Interpretive Data was last revised on 2017. Lymphocyte pct 26.8 % [facility] Comment: Interpretive Data Percent cell count reference ranges are not reported, since discordance with absolute values may lead to misinterpretation of CBC data. Current Interpretive Data was last revised on 2017. Monocyte pct 7.6 % [facility] Comment: Interpretive Data Percent cell count reference ranges are not reported, since discordance with absolute values may lead to misinterpretation of CBC data. Current Interpretive Data was last revised on 2017. Eosinophil pct 1.6 % [facility] Comment: Interpretive Data Percent cell count reference ranges are not reported, since discordance with absolute values may lead to misinterpretation of CBC data. Current Interpretive Data was last revised on 2017. Basophil pct 0.7 % [facility] Comment: Interpretive Data Percent cell count reference ranges are not reported, since discordance with absolute values may lead to misinterpretation of CBC data. Current Interpretive Data was last revised on 2017. Blood 02/21/2025 6:53 PM CDT 02/21/2025 7:07 PM CDT us Umm Randhawa MD LAB BLOOD ORDERABLES Final Result [facility] [place] [address] * Thyroid Function Slade (02/21/2025 6:53 PM CDT) [facility] TSH 1.54 0.30 - 4.20 mcIUnit/mL Blood 02/21/2025 6:53 PM CDT 02/21/2025 7:07 PM CDT Sawyer Mckeon MD LAB BLOOD ORDERABLES Final Resul t Performing Organization Address [facility] Co de Phone Number [facility] [place] [address] * (ABNORMAL) Iron profile w/ IBC (02/21/2025 6:53 PM CDT) [facility] Iron 13(L) 35 - 145 mcg/dL TIBC 410(H) 250 - 400 mcg/dL [facility] Transferrin saturation 3(L) 20 - 50 % [facility] Blood 02/21/2025 6:53 PM CDT 02/21/2025 7:07 PM CDT Sawyer Mckeon MD LAB BLOOD ORDERABLES Final Resul t Performing Organization Address [facility] Co de Phone Number [facility] [place] [address] * (ABNORMAL) CBC with auto differential (02/21/2025 6:53 PM CDT) [facility] WBC 8.87 3.80 - 9.90 K/cumm Hgb 8.6(L) 11.9 - 15.5 g/dL [facility] Hct 28.7(L) 35.6 - 45.5 % [facility] Plt 367 150 - 400 K/cumm [facility] MPV 9.1 9.1 - 12.3 fL [facility] RBC 3.65(L) 3.90 - 5.20 M/cumm [facility] MCV 78.6(L) 81.3 - 96.4 fL [facility] MCH 23.6(L) 27.1 - 33.3 pg [facility] MCHC 30.0(L) 32.3 - 35.7 g/dL [facility] RDW CV 15.0(H) 11.1 - 14.9 % [facility] RDW SD 42.3 35.7 - 48.1 fL [facility] NRBC abs 0.00 0.00 - 0.01 K/cumm [facility] Blood Venous blood specimen / Unknown 02/21/2025 6:53 PM CDT 02/21/2025 7:07 PM CDT Umm Randhawa MD LAB BLOOD ORDERABLES Final Result Performing Organization Address [facility] Co de Phone Number [facility] Department [place] [address] * (ABNORMAL) Reticulocyte Count (02/21/2025 6:53 PM CDT) Retics, absolute 64 20 - 87 K/cumm Retics 1.8 0.4 - 2.9 % [facility] Reticulocyte Hgb 22.6(L) 30.5 - 38.0 pg [facility] Blood 02/21/2025 6:53 PM CDT 02/21/2025 7:12 PM CDT Sawyer Mckeon MD LAB BLOOD ORDERABLES Final Resul t [facility] [place] [address] * Magnesium (02/21/2025 6:53 PM CDT) Magnesium 2.3 1.4 - 2.5 mg/dL Blood 02/21/2025 6:53 PM CDT 02/21/2025 7:07 PM CDT Sangeeta Wolf MD LAB BLOOD ORDERABLES F inal Result Performing Organization Address [facility] Co de Phone Number [facility] [place] [address] * Ferritin (02/21/2025 6:53 PM CDT) [facility] Ferritin 19 13 - 150 ng/mL Blood 02/21/2025 6:53 PM CDT 02/21/2025 7:07 PM CDT Sawyer Mckeon MD LAB BLOOD ORDERABLES Final Resul t Performing Organization Address [facility] de Phone Number [facility] Department [place] [address] * Vitamin B12 (02/21/2025 6:53 PM CDT) [facility] Vitamin B12 291 230 - 1,250 pg/mL Blood 02/21/2025 6:53 PM CDT 02/21/2025 7:07 PM CDT Sawyer Mckeon MD LAB BLOOD ORDERABLES Final Resul t Performing Organization Address [facility] de Phone Number [facility] Department [place] [address] * (ABNORMAL) Comprehensive metabolic panel (02/21/2025 6:53 PM CDT) [facility] Sodium 137 135 - 145 mmol/L Potassium, pl 4.1 3.3 - 4.9 mmol/L [facility] Chloride 106 97 - 110 mmol/L [facility] CO2 24 22 - 32 mmol/L [facility] Anion gap 7 2 - 15 mmol/L [facility] BUN 16 6 - 25 mg/dL [facility] Creatinine 0.99 0.60 - 1.10 mg/dL [facility] Glucose 78 70 - 199 mg/dL [facility] Comment: Interpretive Data Fasting glucose >/= 126 mg/dl is diagnostic for diabetes. Fasting is defined as no caloric intake for at least 8 hours. Fasting glucose between 100 mg/dl to 125 mg/dl is diagnostic of prediabetes. In a patient with classic symptoms of hyperglycemia or hyperglycemic crisis, a random glucose >/= 200 mg/dl is diagnostic for diabetes. In the absence of unequivocal hyperglycemia, results should be confirmed by repeat testing. The classification and Diagnosis of Diabetes Diabetes Care 2021; 46: S19-S40. Current interpretive data was last revised 2022. Calcium 8.4(L) 8.5 - 10.3 mg/dL [facility] Bilirubin, total 0.2 0.1 - 1.2 mg/dL [facility] Protein, pl 7.5 6.5 - 8.5 g/dL [facility] Albumin 3.8 3.5 - 5.0 g/dL [facility] Alk phos 81 40 - 130 Units/L [facility] ALT 15 7 - 45 Units/L [facility] AST 21 10 - 45 Units/L [facility] Blood 02/21/2025 6:53 PM CDT 02/21/2025 7:07 PM CDT us Umm Randhawa MD LAB BLOOD ORDERABLES Final Result [facility] [place] [address] * CT Head and Cervical Spine WO Contrast (02/21/2025 6:22 PM CDT) Anatomical Region Laterality Modality Head and Neck N/A Computed Tomogra phy 02/21/2025 6:45 PM CDT Impressions 02/21/2025 8:24 PM CDT 1. No acute intracranial abnormality. 2. No acute cervical spine fracture. Dictated by: Tashi Geller MD The radiology attending physician has personally reviewed this study, and had reviewed and/or edited this written report and agrees with it. Electronically signed by: Nabor Jonas MD, PHD Narrative 02/21/2025 8:24 PM CDT EXAMINATION: 1. CT HEAD WITHOUT CONTRAST 2. CT CERVICAL SPINE WITHOUT CONTRAST HISTORY: Fall, with loss of consciousness TECHNIQUE: Computed tomography of the head was performed without contrast. Computed tomography of the cervical spine was performed without contrast. COMPARISON: MRI brain 09/22/2023 FINDINGS: HEAD: No acute intracranial hemorrhage. The ventricles are normal in size and morphology. No mass effect or midline shift. Normal blood-white matter differentiation. Imaged portions of the orbits are normal. Imaged portions of the paranasal sinuses are normal. Imaged portions of the mastoids are normal. No acute fracture identified. CERVICAL SPINE: There is mild reversal of the cervical lordosis, which may be positional in nature. No listhesis. No acute fracture identified. 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 Vertebral bodies are normal in height without compression fractures. The craniocervical junction is normal. No soft tissue abnormality identified. No significant degenerative disc or joint disease. No significant grade spinal canal or neuroforaminal stenosis. Procedure Note Nabor Jonas MD PhD - 02/21/2025 EXAMINATION: 1. CT HEAD WITHOUT CONTRAST 2. CT CERVICAL SPINE WITHOUT CONTRAST HISTORY: Fall, with loss of consciousness TECHNIQUE: Computed tomography of the head was performed without contrast. Computed tomography of the cervical spine was performed without contrast. COMPARISON: MRI brain 09/22/2023 FINDINGS: HEAD: No acute intracranial hemorrhage. The ventricles are normal in size and morphology. No mass effect or midline shift. Normal blood-white matter differentiation. Imaged portions of the orbits are normal. Imaged portions of the paranasal sinuses are normal. Imaged portions of the mastoids are normal. No acute fracture identified. CERVICAL SPINE: There is mild reversal of the cervical lordosis, which may be positional in nature. No listhesis. No acute fracture identified. 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 Vertebral bodies are normal in height without compression fractures. The craniocervical junction is normal. No soft tissue abnormality identified. No significant degenerative disc or joint disease. No significant grade spinal canal or neuroforaminal stenosis. IMPRESSION: 1. No acute intracranial abnormality. 2. No acute cervical spine fracture. Dictated by: Tashi Geller MD The radiology attending physician has personally reviewed this study, and had reviewed and/or edited this written report and agrees with it. Electronically signed by: Nabor Jonas MD, PHD Azar Tenorio MD IMG CT PROCEDURES Final Resul t * ECG 12-LEAD (02/21/2025 5:48 PM CDT) Narrative [facility] - 02/21/2025 5:48 PM CDT Azar Tenorio MD 02/21/2025 5:50 PM ECG 12 lead Date/Time: 02/21/2025 5:48 PM Performed by: Azar Tenorio MD Authorized by: Azar Tenorio MD Rate: ECG rate: 81 ECG rate assessment: normal Rhythm: Rhythm: sinus arrhythmia Ectopy: Ectopy: none QRS: QRS axis: Normal Conduction: Conduction: normal T waves: T waves: normal Other findings: Other findings: LVH Previous ECG: Previous ECG: Compared to current Date of previous EC12/23/2023 Similarity: No change Interpretation: Interpretation: non-specific Recommended Follow-up: Recommended follow up: further workup in the ED Comments: Fall, some SOB us Umm Randhawa MD ECG ORDERABLES Final Resul t Performing Organization Address [facility] Co de Phone Number [facility] * Hepatitis C antibody (08/11/2017 4:04 PM TRIAL MGR) Hep C Ab Negative Negative [facility] Blood specimen (specimen) 08/11/2017 4:04 PM TRIAL MGR 08/11/2017 6:57 PM TRIAL MGR Narrative [facility] - 08/11/2017 7:57 PM TRIAL MGR Elsy Honeycutt NP LAB MICROBIOLOGY - GENERAL ORDER STEPHAN Final Result [facility] [address] [place] [address] from Last 3 Months or Most Recently Relevant to Health Maintenance Insurance [employer] HMO [employer] [facility] HMO IDPA Shahab P. Tabatabai, Broker OOS Advance Directives For more information, please contact: [phone] * Full Code (Latest Code Status on File) Date Activated Date Inactivated Comments 02/22/2025 10:35 AM 02/25/2025 7:58 PM * Full Code Date Activated Date Inactivated Comments 12/21/2023 10:14 AM 12/24/2023 5:29 PM * Full Code Date Activated Date Inactivated Comments 12/12/2020 2:53 PM 12/13/2020 9:01 PM * Full Code Date Activated Date Inactivated Comments 09/28/2020 4:01 PM 10/01/2020 6:19 PM * Full Code Date Activated Date Inactivated Comments 08/21/2019 1:26 PM 08/21/2019 7:55 PM Care Teams Planer Setter Relationship Specialty Start Date End Date Fernanda Cooley MD [address] [facility] ([facility]) Mailstop [phone] [place] [address] PCP - General Family Medicine 03/06/25 Macario Tinoco, PT Physical Therapist Physical Therapy 02/09/18 Jermaine Huertas, PT Physical Therapist Physical Therapy 02/21/18 Bria Bailey MD Referring Physician Obstetrics and Gynecology 03/31/18 Viktor Foley MD Surgeon General Surgery 08/30/18 Rochelle Givens, [facility] [address] [facility] ([facility]) Mailstop [phone] [place] [address] SHOP Outpatient Clinical Research Associate 02/26/25
--- OUTSIDE RECORDS SUMMARY | 2025-05-07 08:55 | XMS_ITS | Encounter Summary ---
Author Organization [facility] Address [address] [place] [address] Phone Care Team Providers Care Twisting Department End Finder Name Role Phone Macario Tinoco PT Unavailable Unavailable Jermaine Huertas PT Unavailable UnavailBria Black MD Unavailable [phone] Patience Chapa Primary Care Provider + Viktor Foley MD Unavailable [phone] Austin Lee MD Primary Care Provider [phone] Patience Chapa Primary Care Provider + Patience Chapa Primary Care Provider + Danilo Mirza MD Primary Care Provider [phone] Dannielle Lee MD Primary Care Provider [phone] Austin Lee MD Primary Care Provider [phone] Dannielle Lee MD Primary Care Provider [phone] Austin Lee MD Primary Care Provider [phone] Dannielle Lee MD Primary Care Provider [phone] Niraj Crump NP Primary Care Provider + Austin Lee MD Primary Care Provider [phone] Gianluca Briannajeremy Vivas RN Unavailable [phone] Rochelle Givens RETAIL WIRELESS ASSOCIATE Unavailable [phone] Fernanda Cooley MD Primary Care Provider Encounter Details Date Type Department Care Team (Latest Contact Info) Description 02/08/2019 Orders Only [facility] Scanning, Provider Social History Tobacco Use Types Packs/Day Years Used Date Smoking Tobacco: Never Smokeless Tobacco: Never Alcohol Use Standard Drinks/Week Comments No 0 (1 standard drink = 0.6 oz pur e alcohol) Comments No Sex and Gender Information Value Date Recorded Sex Assigned at Not on file Legal Sex Female 5:47 PM STOCKBROKER Gender Identity Not on file Sexual Orientation Not on file documented as of this encounter Plan of Treatment Not on file documented as of this encounter Procedures Procedure Name Priority Date/Time Associated Diagnosis Comments CARDIOLOGY DOCUMENT SCAN 02/08/2019 documented in this encounter Results * SCAN - CARDIOLOGY (02/08/2019) Anatomical Region Laterality Modality Other Provider Scanning CV CARDIAC SERVICES PROCEDURES Final [...] COVID: Suspected 09/28/2020 09/28/2020 09/28/2020 1:09 PM STOCKBROKER Respiratory Infection (ROSAMARIA), contact + droplet Comment:Automatically added due to negative COVID-19 result. 09/28/2020 09/28/2020 09/30/2020 11: 42 AM STOCKBROKER C. difficile 09/29/2020 09/29/2020 09/30/2020 11:4 1 AM STOCKBROKER C. difficile Comment:03/13/2022 Patient completed antibiotic course [...] documented as of this encounter Care Teams Twisting Department End Finder Relationship Specialty Start Date End Date Patience Chapa PA [address] [facility] [place] [address] PCP - General 08/28/18 06/26/19 Austin Lee MD [address] [facility] [place] [id number] PCP - General Internal Medicine 06/27/19 07/11/19 Patience Chapa PA [address] [facility] [place] [address] PCP - General 07/12/19 08/20/19 Patience Chapa PA [address] [facility] [place] [address] PCP - General 08/21/19 11/13/19 Danilo Mirza MD [address] [place] [address] PCP - General 11/14/19 09/27/20 Dannielle Lee MD [address] [place] [address] PCP - General 09/28/20 11/30/20 Austin Lee MD [address] [place], [place] [id number] PCP - General 12/01/20 12/08/20 Dannielle Lee MD [address] [place] [address] PCP - General 12/09/20 12/09/20 Austin Lee MD [address] [place], [place] [id number] PCP - General 12/10/20 12/11/20 Dannielle Lee MD [address] [place] [address] PCP - General 12/12/20 06/09/21 Niraj Crump NP [address] [facility] [address] [place] [address] PCP - General 06/10/21 01/21/22 Austin Lee MD [address] [place] [address] PCP - General 01/22/22 02/22/25 Fernanda Cooley MD [address] [facility] ([facility]) Mailstop [phone] [place] [address] PCP - General Family Medicine 03/06/25 Macario Tinoco, PT Physical Therapist Physical Therapy 02/09/18 Jermaine Huertas, PT Physical Therapist Physical Therapy 02/21/18 Bria Bailey MD Referring Physician Obstetrics and Gynecology 03/31/18 Viktor Foley MD [address] [place] [address] Surgeon General Surgery 08/30/18 Brianna Hough, RN [address] [address] SHOP Outpatient Medical Staff Manager 12/27/23 01/20/24 Rochelle Givens, RETAIL WIRELESS ASSOCIATE [address] [facility] ([facility]) Mailstop [phone] [place] [address] SHOP Outpatient Medical Staff Manager 02/26/25 documented as of this encounter
--- OUTSIDE RECORDS SUMMARY | 2025-05-07 08:55 | XMS_ITS | Encounter Summary ---
Author Organization [facility] Address [address] [place] [address] Care Team Providers Care Orthodontist Vice President Name Role Phone Unavailable Primary Care Provider Unavailabl e Encounter Details Date Type Department Care Team (Late st Contact Info) Description 09/29/2017 Abstract [facility] [address] [place] [address] Trista Myers MD [address] [facility], [address] [place] [id number] Social History Tobacco Use Types Packs/Day Years Used Date Smoking Tobacco: Never Alcohol Use Standard Drinks/Week Comments No 0 (1 standard drink = 0.6 oz pur e alcohol) Occasionally Comments Unknown Sex and Gender Information Value Date Recorded Sex Assigned at Not on file Legal Sex Female 7:30 PM CDT Gender Identity Not on file Sexual Orientation Not on file Occupation Industry Job Start Date Job End Date Student, 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
--- OUTSIDE RECORDS SUMMARY | 2025-05-07 08:55 | XMS_ITS | Encounter Summary ---
Author Organization [facility] Address [facility] [place] [address] Care Team Providers Care Chief Operator Reformer Name Role Phone None, Provider MD Primary Care Provider Unavaila ble New Referring, Provider Primary Care Provider Un available Encounter Details Date Type Department Care Team (Late st Contact Info) Description 06/15/2014 Abstract [facility] [place] [address] [place] [address] Trista Myers MD [address] [facility], [address] [place] [address] Social History Tobacco Use Types Packs/Day Years Used Date Smoking Tobacco: Never Comments Unknown Sex and Gender Information Value Date Recorded Sex Assigned at Not on file Legal Sex Female 7:30 PM CDT Gender Identity Not on file Sexual Orientation Not on file Occupation Industry Job Start Date Job End Date Student, 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
--- OUTSIDE RECORDS SUMMARY | 2025-05-07 08:55 | XMS_ITS | Clinical Summary ---
Author Organization [facility] [employer] Address [address] [facility] [place] [address] Care Team Providers Care Fish Boning Machine Feeder Name Role Phone Patience Chapa Primary Care Provider [phone] Source Comments [facility],non-owned Affiliates and Associated Physician Practices is amultiple site organization consisting of ambulatory clinics and hospital sitesin [place], [place], [place] and [place]. This disclosure is being madepursuant to the Care Everywhere program and may not contain all information available regarding this patient. Last updated 18.[facility] [employer] Allergies Active Allergy Reactions Criticality Noted Date Comments Azithromycin Other,Rash Medium 03/10/2016 Pt.doesn't know Pt.doesn't know Latex Rash Medium 03/10/2016 Penicillin V Anaphylaxis High 05/20/2016 Penicillins Other,Anaphylaxis High 03/10/2016 Pt.doesnt know Medications * Be aware that medications may not be up to date on this document. Alwaysverify current medications with the patient. acetaminophen (TYLENOL) 500 MG capsule Take 500 mg by mouth as needed 04/20/2018 Active albuterol HFA (PROVENTIL;KATHRINE JOSE;PROAIR) 108 (90 BASE) MCG/ACT inhaler Acti ve EPINEPHrine (EPI PEN JR) 0.15 MG/0.3ML auto-injector pen 02/17/2018 Active HYDROcodone-acet aminophen (NORCO) 5-325 MG tablet 07/13/2018 Active metoprolol succinate XL 24hr (TOPROL XL) 100 MG tablet Take 100 mg by mouth 2 times daily 04/29/2018 Active nystatin (MYCOSTATIN) 853702 UNIT/GM cream 05/31/2018 Active Vit-Fe Fumarate-FA ( PLUS) 27-1 MG tablet 08/09/2018 Acti ve Active Problems Problem Noted Date Diagnosed Date Dysmenorrhea 03/10/2016 Other microscopic hematuria 03/10/2016 Pelvic and perineal pain 03/10/2016 Other chronic pain 03/10/2016 Unspecified dyspareunia (CODE) 03/10/2016 Resolved Problems Problem Noted Date Diagnosed Date Resolved Date Constipation 03/10/2016 01/10/2018 Social History Tobacco Use Types Packs/Day Years Used Date Smoking Tobacco: Never Smokeless Tobacco: Never Alcohol Use Standard Drinks/Week Comments No 0 (1 standard drink = 0.6 oz pur e alcohol) Comments Unknown Sex and Gender Information Value Date Recorded Sex Assigned at Not on file Legal Sex Female 5:34 PM HEARING AID SPECIALIST Gender Identity Not on file Sexual Orientation Not on file Last Filed Vital Signs Vital Sign Reading Time Taken Comments Blood Pressure 122/80 08/17/2018 2:45 PM HEARING AID SPECIALIST Pulse - - Temperature - - Respiratory Rate - - Oxygen Saturation - - Inhaled Oxygen Concentration - - Weight 112.5 kg (248 lb) 08/17/2018 2:45 PM HEARING AID SPECIALIST Height 157.5 cm (5' 2) 08/17/2018 2:45 PM HEARING AID SPECIALIST Body Mass Index 45.36 08/17/2018 2:45 PM HEARING AID SPECIALIST Plan of Treatment Health Maintenance Due Date Last Done Comments HIV SCREENING 2002 HEPATITIS C SCREENING 05/10/2005 DTAP/TDAP/TD VACCINES (1 - Tdap) 2006 HEPATITIS B VACCINE (1 of 3 - 19+ 3-dose series) 2006 HPV VACCINE (1 - 3-dose SCDM series) 2014 COVID-19 VACCINE ( - 2023-2 5 season) 2024 DEPRESSION SCREENING 09/13/2024 INFLUENZA VACCINE (#1) 2025 ZOSTER VACCINE (1 of 2) 2037 HIB VACCINE Aged Out No longer eligi ble based on patient's age to complete this topic MENINGOCOCCAL (Group B) VACC INE SHARED DECISION-MAKING Aged Out No longer eligibl e based on patient's age to complete this topic MENINGOCOCCAL GROUPS A/C/Y/W VACCINE Aged Out No longer eligible b ased on patient's age to complete this topic PNEUMOCOCCAL VACCINE Aged Out No long er eligible based on patient's age to complete this topic Insurance MEDICAID - OUT OF STATE Care Teams Fish Boning Machine Feeder Relationship Specialty Start Date End Date Patience Chapa PA [address] [place] [address] PCP - General 08/17/18
--- OUTSIDE RECORDS SUMMARY | 2025-05-07 08:55 | XMS_ITS | Encounter Summary ---
Author Organization [facility] Address [address] [place] [address] Phone Care Team Providers Care Order Caller Name Role Phone Macario Tinoco PT Unavailable Unavailable Jermaine Huertas PT Unavailable Unavaila Bria Salamanca MD Unavailable Viktor Foley MD Unavailable [phone] Niraj Crump NP Primary Care Provider + Austin Lee MD Primary Care Provider [phone] Brianna Hough RN Unavailable [phone] Rochelle Givens [facility] Unavailable [phone] Fernanda Cooley MD Primary Care Provider Encounter Details Date Type Department Care Team (Latest Contact Info) Description 01/02/2022 Orders Only [facility] Scanning, Provider Social History Tobacco Use Types Packs/Day Years Used Date Smoking Tobacco: Never Smokeless Tobacco: Never Alcohol Use Standard Drinks/Week Comments Yes 0 (1 standard drink = 0.6 oz pur e alcohol) rarely AUDIT-C Answer Date Recorded Q1: How often do you have a drink containing alc ohol? Never 12/04/2020 Average Number of Drinks Not on file 021 Q3: How often do you have si x or more drinks on one occasion? Never 12/04/2020 Comments No Sex and Gender Information Value Date Recorded Sex Assigned at Not on file Legal Sex Female 5:47 PM BIOFUELS TECHNOLOGY MANAGER Gender Identity Not on file Sexual Orientation Not on file documented as of this encounter Plan of Treatment Not on file documented as of this encounter Procedures Procedure Name Priority Date/Time Associated Diagnosis Comments SCAN - LABS 01/02/2022 documented in this encounter Results * SCAN - LABS (01/02/2022) us Provider Scanning Final Result documented in this encounter Visit [...] documented as of this encounter Care Teams Order Caller Relationship Specialty Start Date End Date Niraj Crump NP [address] [facility] [address] [address] PCP - General 06/10/21 01/21/22 Austin Lee MD [address] [facility] [address] [place] [address] PCP - General 01/22/22 02/22/25 Fernanda Cooley MD [address] [facility] ([facility]) Mailstop [phone] [place] [address] PCP - General Family Medicine 03/06/25 Macario Tinoco, PT Physical Therapist Physical Therapy 02/09/18 Jermaine Huertas, PT Physical Therapist Physical Therapy 02/21/18 Bria Bailey MD Referring Physician Obstetrics and Gynecology 03/31/18 Viktor Foley MD Surgeon General Surgery 08/30/18 Brianna Hough, RN [address] [facility] [address] [place] [address] SHOP Outpatient Teaching Associate 12/27/23 01/20/24 Rochelle Givens, LLOYD [address] [facility] ([facility]) [facility] [phone] [place] [address] SHOP Outpatient Teaching Associate 02/26/25 documented as of this encounter
--- OUTSIDE RECORDS SUMMARY | 2025-05-07 08:55 | XMS_ITS | Clinical Summary ---
Author Organization [facility] Barb Ulrich Address [address] [place] [address] Care Team Providers Care Chemist Water Purification Name Role Phone Unavailable Primary Care Provider Unavailabl e Allergies Active Allergy Reactions Criticality Noted Date Comments Azithromycin Rash Low 09/01/2022 Latex Hives High 09/01/2022 Penicillin Shortness of Breath/Wheezing High 022 Medications DULoxetine (CYMBALTA) 60 mg Capsule, Delayed Release(E.C.) TAKE 1 CAPSULE BY MOUTH TWICE DAILY IN THE MORNING 08/31/2022 Active lamoTRIgine (LaMICtal) 100 mg tablet 06/06/2022 Active Linzess 290 mcg capsule Take 290 mcg by mouth daily. 06/08/2022 Active metoprolol succinate (TOPROL XL) 50 mg Extended Release 24 hour tablet TAKE 1 & 1/2 (ONE & ONE-HALF) TABLETS BY MOUTH TWICE DAILY 07/20/2022 Active pregabalin (LYRICA) 150 mg Capsule Take 150 mg by mouth 3 times daily. 08/24/2022 Active Ozempic 0.25 mg or 0.5 mg(2 mg/1.5 mL) Pen Injector 08/29/2022 Active traZODone (DESYREL) 100 mg tablet 07/28/2022 Active diphenhydrAMINE (BENADRYL) 25 mg tablet Take 25 mg by mouth every 6 hours as needed for Allergies. Active clonazePAM (KlonoPIN) 0.5 mg Tablet TAKE 1 TABLET BY MOUTH NEEDED. MUST LAST 30 DAYS 08/24/2022 Active Active Problems No known active problems Encounters Date Type Department Care Team Description 04/12/2025 Orders Only [facility] Oncology and Hematology - Josue [address] [place] [address] Tahir Trivedi MD Chronic anemia (Primary Dx) from Last 3 Months Family History Medical History Relation Name Comments Hypertension Brother No Known Problems Daughter Heart Disease Father Breast Cancer Maternal Grandmother Heart Disease Maternal Grandmother Heart Disease Mother Diabetes Sister 1 4 sisters Seizures Sister 1 4 sisters Stroke Sister 1 4 sisters Diabetes Sister 2 Relation Name Status Comments Brother Alive Daughter Alive Father Alive Maternal Grandmother Alive Mother Alive Sister 1 4 sisters Alive Sister 2 Social History Tobacco Use Types Packs/Day Years Used Date Smoking Tobacco: Never Smokeless Tobacco: Never Tobacco Cessation:Counseling Given: Not Answered Alcohol Use Standard Drinks/Week Comments Yes 0 (1 standard drink = 0.6 oz pur e alcohol) ocassionally Comments Unknown Sex and Gender Information Value Date Recorded Sex Assigned at Not on file Legal Sex Female 3:36 PM CDT Gender Identity Not on file Sexual Orientation Not on file Last Filed Vital Signs Vital Sign Reading Time Taken Comments Blood Pressure 122/86 11/16/2022 2:33 PM AIR CHIPPER Pulse 85 11/16/2022 2:33 PM AIR CHIPPER Temperature 36.4 C (97.5 F) 11/16/2022 2:33 PM AIR CHIPPER Respiratory Rate 10 11/16/2022 2:33 PM AIR CHIPPER Oxygen Saturation 100% 11/16/2022 2:33 PM AIR CHIPPER Inhaled Oxygen Concentration - - Weight 90.4 kg (199 lb 6.4 oz) 11/16/2022 2:33 P M AIR CHIPPER Height 157.5 cm (5' 2) 09/01/2022 3:17 PM AIR CHIPPER Body Mass Index 36.47 09/01/2022 3:17 PM AIR CHIPPER Plan of Treatment Upcoming Encounters Date Type Department Care Team (Late st Contact Info) Description 05/10/2025 3:45 PM CDT Office Visit [facility] Oncology and Hematology - [place] [address] [place] [address] Tahir Trivedi MD [address] [facility] [address] [place] [address] Health Maintenance Due Date Last Done Comments DTAP/TDAP/TD VACCINES (1 - Tdap) 2006 HEPATITIS B VACCINES (1 of 3 - 19+ 3-dose series) 10/2005 HPV/Cotest (21-29) 2008 HPV VACCINES (1 - 3-dose SCDM series) 2014 CERVICAL CANCER SCREENING 2017 HPV/Cotest (30-65) 2017 PAP SMEAR 2017 Medicare Advantage ([place]) Prev entative Visit/Annual Wellness Visit 09/13/2024 INFLUENZA VACCINE (#1) 2025 Insurance
--- OUTSIDE RECORDS SUMMARY | 2025-05-07 08:55 | XMS_ITS | Encounter Summary ---
Author Organization [facility] Address [address] [place] [address] Phone Care Team Providers Care Medical Office Representative Name Role Phone Macario Tinoco PT Unavailable Unavailable Jermaine Huertas PT Unavailable Unavaila Bria Salamanca MD Unavailable [phone] Viktor Foley MD Unavailable [phone] Dannielle Lee MD Primary Care Provider [phone] Austin Lee MD Primary Care Provider [phone] Dannielle Lee MD Primary Care Provider [phone] Austin Lee MD Primary Care Provider [phone] Dannielle Lee MD Primary Care Provider [phone] Niraj Crump NP Primary Care Provider + Austin Lee MD Primary Care Provider [phone] Brianna Hough RN Unavailable [phone] Rochelle Givens LCSW Unavailable [phone] Fernanda Cooley MD Primary Care Provider Encounter Details Date Type Department Care Team (Late st Contact Info) Description 11/27/2020 Telephone [facility] Surgery [address] [facility] Medical Office Building [address] [place] [address] Thelma Tabares Social History Tobacco Use Types Packs/Day Years Used Date Smoking Tobacco: Never Smokeless Tobacco: Never Alcohol Use Standard Drinks/Week Comments Yes 0 (1 standard drink = 0.6 oz pur e alcohol) rarely Comments No Sex and Gender Information Value Date Recorded Sex Assigned at Not on file Legal Sex Female 5:47 PM FARM EQUIPMENT MECHANIC Gender Identity Not on file Sexual Orientation [...] documented as of this encounter Care Teams Medical Office Representative Relationship Specialty Start Date End Date Dannielle Lee MD PCP - General 09/28/20 11/30/20 Austin Lee MD [address] [place] [address] PCP - General 12/01/20 12/08/20 Dannielle Lee MD PCP - General 12/09/20 12/09/20 Austin Lee MD [address] [place] [address] PCP - General 12/10/20 12/11/20 Dannielle Lee MD PCP - General 12/12/20 06/09/21 Niraj Crump NP [address] [facility] [address], [place] [address] PCP - General 06/10/21 01/21/22 Austin Lee MD [address] [place] [address] [address] [place], [place] [id number] PCP - General 01/22/22 02/22/25 Fernanda Cooley MD [address] [facility] ([facility]) Mailstop [phone] [place] [address] PCP - General Family Medicine 03/06/25 Macario Tinoco, PT Physical Therapist Physical Therapy 02/09/18 Jermaine Huertas, PT Physical Therapist Physical Therapy 02/21/18 Bria Bailey MD Referring Physician Obstetrics and Gynecology 03/31/18 Viktor Foley MD Surgeon General Surgery 08/30/18 Brianna Hough, RN 45[address] [facility] [address] [place], [place] [address] SHOP Outpatient Senior Reactor Operator 12/27/23 01/20/24 Rochelle Givens, [facility] [address] [facility] ([facility]) Mailstop [phone] [place] [address] SHOP Outpatient Senior Reactor Operator 02/26/25 documented as of this encounter
--- OUTSIDE RECORDS SUMMARY | 2025-05-07 08:55 | XMS_ITS | Clinical Summary ---
Author Organization [facility] Address [address] [place] [address] Care Team Providers Care Fermenter Name Role Phone Unavailable Primary Care Provider Unavailabl e Allergies Active Allergy Reactions Criticality Noted Date Comments Aspirin Rash Low 10/08/2016 Azithromycin Rash Low 10/08/2016 Latex Anaphylaxis High 10/08/2016 Penicillins Anaphylaxis High 10/08/2016 Medications duloxetine (CYMBALTA) 60 MG capsule Take 1 tablet by mouth daily. 4 Active hydrochlorothia zide 25 MG tablet Take 25 mg by mouth every morning. Active clonazePAM 0.5 MG tablet Take 0.5 mg by mouth 2 (two) times daily as needed for Anxiety. Active traMADol 50 MG tablet Take 50 mg by mouth every 6 (six) hours as needed for Pain. Active metoprolol succinate 25 MG 24 hr tablet Take 0.5 tablets (12.5 mg total) by mouth daily. 45 tablet 1 7 Active COMPRESSION STOCKINGS Compression stockings 10-20 mmhg knee high - open or closed toe ( bilateral ) Dx i 83.893 1 Container 6 7 Active Active Problems Problem Noted Date Diagnosed Date SOB (shortness of breath) 10/12/2016 Palpitations Syncope Pulmonary hypertension (CMS/HCC HHS/HCC) Obstructive sleep apnea heydi [place] with continuous positive airway pressure (CPAP) Family History Medical History Relation Comments Heart Disease Other Family history i s positive for coronary heart disease. 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 Not on file Not on file Last Filed Vital Signs Vital Sign Reading Time Taken Comments Blood Pressure 102/76 10/12/2016 12:28 PM FISH DRIER Pulse 72 10/12/2016 12:24 PM FISH DRIER Temperature - - Respiratory Rate 16 10/12/2016 12:24 PM FISH DRIER Oxygen Saturation - - Inhaled Oxygen Concentration - - Weight 114.8 kg (253 lb) 10/12/2016 12:24 PM FISH DRIER Height 157.5 cm (5' 2) 10/12/2016 12:24 PM FISH DRIER Body Mass Index 46.27 10/12/2016 12:24 PM FISH DRIER Plan of Treatment Health Maintenance Due Date Last Done Comments Cervical Cancer Screening Pa p Smear (Age 30 to 64) Every 3 Years 1987 Annual Physical 1990 Hepatitis C 2005 DTaP, Tdap and Td Vaccines ( 1 - Tdap) 2006 Hepatitis B Vaccines (1 of 3 - 19+ 3-dose series) 2006 HPV Vaccines (1 - 3-dose SCD M series) 2014 Cervical Cancer Screening Pa p with HPV Testing (Age 30 to 64) Every 5 Years 2017 Cervical Cancer Screening with HPV 2017 COVID-19 Vaccine (2023-2 5 season) 2024 Meningococcal B Vaccine Aged Out No l onger eligible based on patient's age to complete this topic Meningococcal Vaccine Aged Out No tori ran eligible based on patient's age to complete this topic Pneumococcal Vaccine: Pediat rics (0 to 5 Years) and At-Risk Patients (6 to 49 Years) Aged Out No longer eligible b ased on patient's age to complete this topic RSV Immunizations Under 20 Months Aged Out No longer eligible based on patient's age to complete this topic Insurance [facility] [address]
--- OUTSIDE RECORDS SUMMARY | 2025-05-07 08:55 | XMS_ITS | Encounter Summary ---
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
--- OUTSIDE RECORDS SUMMARY | 2025-05-07 08:55 | XMS_ITS | Encounter Summary ---
Author Organization [facility] Address [address] [place] [address] Phone Care Team Providers Care Chief Marketing Officer Name Role Phone Janina Crockett MD Primary Care Provide r Niraj Crump MINERAL TECHNOLOGIST Primary Care Provider + Janina Crockett MD Primary Care Provide r Niraj Crump MINERAL TECHNOLOGIST Primary Care Provider + Janina Crockett MD Primary Care Provide r Janina Crockett MD Primary Care Provide r Janina Crockett MD Primary Care Provide r Niraj Crump MINERAL TECHNOLOGIST Primary Care Provider + Niraj Crump MINERAL TECHNOLOGIST Primary Care Provider + Janina Crockett MD Primary Care Provide r Janina Crockett MD Primary Care Provide r Janina Crockett MD Primary Care Provide r Janina Crockett MD Primary Care Provide r Theron, Niraj Dean MINERAL TECHNOLOGIST Primary Care Provider + Theron, Niraj Dean MINERAL TECHNOLOGIST Primary Care Provider + Theron, Niraj Dean MINERAL TECHNOLOGIST Primary Care Provider + Janina Crockett MD Primary Care Provide r Janina Crockett MD Primary Care Provide r Theron, Niraj Dean MINERAL TECHNOLOGIST Primary Care Provider + Janina Crockett MD Primary Care Provide r Theron, Niraj Dean MINERAL TECHNOLOGIST Primary Care Provider + Macario Tinoco PT Unavailable Unavailable Janina Crockett MD Primary Care Provide r Jermaine Huertas PT Unavailable Unavaila ble Niraj Crump NP Primary Care Provider + Bria Bailey MD Unavailable [phone] Patience Chapa Primary Care Provider + Viktor Foley MD Unavailable [phone] Austin Lee MD Primary Care Provider [phone] Patience Chapa Primary Care Provider + Patience Chapa Primary Care Provider + Danilo Mirza MD Primary Care Provider [phone] Dannielle Lee MD Primary Care Provider [phone] Austin Lee MD Primary Care Provider [phone] Dannielle Lee MD Primary Care Provider [phone] Austin Lee MD Primary Care Provider [phone] Dannielle Lee MD Primary Care Provider [phone] Niraj Crump NP Primary Care Provider + Austin Lee MD Primary Care Provider [phone] Brianna Hough RN Unavailable [phone] YuniorRochelle bolanos MECHANICAL ORDNANCE ASSEMBLER Unavailable [phone] Fernanda Cooley MD Primary Care Provider Encounter Details Date Type Department Care Team (Latest Contact Info) Description 10/04/2017 Orders Only [facility] CONVERSION Scanning, Provider Social History Tobacco Use Types Packs/Day Years Used Date Smoking Tobacco: Never Smokeless Tobacco: Never Alcohol Use Standard Drinks/Week Comments No 0 (1 standard drink = 0.6 oz pur e alcohol) Comments Yes Sex and Gender Information Value Date Recorded Sex Assigned at Not on file Legal Sex Female 5:47 PM HOTEL ROOM ATTENDANT Gender Identity Not on file Sexual Orientation Not on file documented as of this encounter Plan of Treatment Not on file documented as of this encounter Procedures Procedure Name Priority Date/Time Associated Diagnosis Comments TRANSTHORACIC ECHO (TTE) COMPLETE W DOPPLER/CF WO CONTRAST 10/14/2017 12:33 PM HOTEL ROOM ATTENDANT OBSTETRIC/GYNECOLOGY ULTRASONOGRAPHY REPORT 10/04/2017 9:55 AM HOTEL ROOM ATTENDANT documented in this encounter Results * TRANSTHORACIC ECHO (TTE) COMPLETE W DOPPLER/CF WO CONTRAST (10/14/2017 12:33 PM HOTEL ROOM ATTENDANT) Anatomical Region Laterality Modality Ultrasound us Provider Scanning CV ECHO PROCEDURES Final Resul t * OBSTETRIC/GYNECOLOGY ULTRASONOGRAPHY REPORT (10/04/2017 9:55 AM HOTEL ROOM ATTENDANT) Anatomical Region Laterality Modality Ultrasound us Provider [...] COVID: Suspected 09/28/2020 09/28/2020 09/28/2020 1:09 PM HOTEL ROOM ATTENDANT Respiratory Infection (ROSAMARIA), contact + droplet Comment:Automatically added due to negative COVID-19 result. 09/28/2020 09/28/2020 09/30/2020 11: 42 AM HOTEL ROOM ATTENDANT C. difficile 09/29/2020 09/29/2020 09/30/2020 11:4 1 AM HOTEL ROOM ATTENDANT C. difficile Comment:03/13/2022 Patient completed antibiotic course in 2020. 12/13/2020 IP Review - Pt is currently on effective abx. Not a candidate for isolation discontinuation at this time. Franco William IP Review- Patient has finished treatment and currently has formed stools. Isolation removed. 12/21/23 4:47 PM Rochelle Baker 09/29/2020 09/30/2020 12/21/2023 4:47 PM C DT COVID: Suspected 06/10/2021 06/10/2021 06/11/2021 3:24 AM CDT documented as of this encounter Care Teams Chief Marketing Officer Relationship Specialty Start Date End Date Janina Crockett MD [address] [place] [address] PCP - General 09/16/17 10/31/17 Niraj Crump NP [address] [place] [address] [address] [place] [address] PCP - General 11/01/17 11/02/17 Janina Crockett MD [address] [place] [address] PCP - General 11/03/17 11/05/17 Niraj Crump NP [address] [facility] [address] [place] [address] PCP - General 11/06/17 11/07/17 Janina Crockett MD [address] [place] [address] PCP - General 11/08/17 11/10/17 Janina Crockett MD [address] [place] [address] PCP - General 11/11/17 11/11/17 Janina Crockett MD [address] [place], [place] [address] PCP - General 11/12/17 11/14/17 Niraj Crump, ALEKSANDRA [address] [facility] [address] [place] [address] PCP - General 11/15/17 11/15/17 Niraj Crump, MINERAL TECHNOLOGIST [address] [facility] [address] [place] [address] PCP - General 11/16/17 11/18/17 Janina Crockett MD [address] [place] [address] PCP - General 11/19/17 11/21/17 Janina Crockett MD [address] [place] [address] PCP - General 11/22/17 11/22/17 Janina Crockett MD [address] [place] [address] PCP - General 11/23/17 11/25/17 Janina Crockett MD [address] [place] [address] PCP - General 11/26/17 11/28/17 Niraj Crump, ALEKSANDRA [address] [facility] [address] [place] [address] PCP - General 11/29/17 12/05/17 Niraj Crump NP [address] [facility] [address] [place] [address] PCP - General 12/06/17 12/06/17 Niraj Crump NP [address] [facility] [address] [place] [address] PCP - General 12/07/17 12/07/17 Janina Crockett MD [address] [place] [address] PCP - General 12/08/17 12/22/17 Janina Crockett MD [address] [place] [address] PCP - General 12/23/17 01/03/18 Niraj Crump NP [address] [facility] [address] [place] [address] PCP - General 01/04/18 01/04/18 Janina Crockett MD [address] [place] [address] PCP - General 01/05/18 02/03/18 Niraj Crump, ALEKSANDRA [address] [facility] [address] [address] PCP - General 02/04/18 02/14/18 Janina Crockett MD [address] [place] [address] PCP - General 02/15/18 03/13/18 Niraj Crump, ALEKSANDRA [address] [facility] [address] [place] [address] PCP - General 03/14/18 08/27/18 Patience Chapa PA [address] [place] [address] PCP - General 08/28/18 06/26/19 Austin Lee MD [address] [place] [address] PCP - General Internal Medicine 06/27/19 07/11/19 Patience Chapa PA [address] [facility] [place] [address] PCP - General 07/12/19 08/20/19 Patience Chapa PA [address] [facility] [place] [address] PCP - General 08/21/19 11/13/19 Danilo Mirza MD [address] [place] [address] PCP - General 11/14/19 09/27/20 Dannielle Lee MD [address] [place] [address] PCP - General 09/28/20 11/30/20 Austin Lee MD [address] [facility] [place] [address] PCP - General 12/01/20 12/08/20 Dannielle Lee MD [address] [place] [address] PCP - General 12/09/20 12/09/20 Austin Lee MD [address] [place], [place] [address] PCP - General 12/10/20 12/11/20 Dannielle Lee MD [address] [place] [address] PCP - General 12/12/20 06/09/21 Niraj Crump NP [address] [facility] [address] [place], [place] [address] [address] PCP - General 06/10/21 01/21/22 Austin Lee MD [address] [place] [address] PCP - General 01/22/22 02/22/25 Fernanda Cooley MD 45[address] [facility]) Mailstop [phone] [place] [address] PCP - General Family Medicine 03/06/25 Macario Tinoco, PT Physical Therapist Physical Therapy 02/09/18 Jermaine Huertas, PT Physical Therapist Physical Therapy 02/21/18 Bria Bailey MD Referring Physician Obstetrics and Gynecology 03/31/18 Viktor Foley MD [address] [place], [place] [id number] Surgeon General Surgery 08/30/18 Brianna Hough, RN [address] [facility] [address] [place] [address] SHOP Outpatient Skoog Machine Operator 12/27/23 01/20/24 Rochelle Givens, MECHANICAL ORDNANCE ASSEMBLER [address] [facility] ([facility]) Mailstop [phone] [place] [address] SHOP Outpatient Skoog Machine Operator 02/26/25 documented as of this encounter
--- OUTSIDE RECORDS SUMMARY | 2025-05-07 08:55 | XMS_ITS | Encounter Summary ---
Author Organization [facility] Address [address] [place] [address] Phone Care Team Providers Care Director Of Regulatory Affairs Name Role Phone Macario Tinoco PT Unavailable Unavailable Jermaine Huertas PT Unavailable Unavaila Bria Salamanca MD Unavailable [phone] Viktor Foley MD Unavailable [phone] Danilo Mirza MD Primary Care Provider [phone] Dannielle Lee MD Primary Care Provider [phone] Austin Lee MD Primary Care Provider [phone] Dannielle Lee MD Primary Care Provider [phone] Austin Lee MD Primary Care Provider [phone] Dannielle Lee MD Primary Care Provider [phone] Niraj Crump NP Primary Care Provider + Austin Lee MD Primary Care Provider [phone] Brianna Hough RN Unavailable [phone] Rochelle Givens LCSW Unavailable [phone] Fernanda Cooley MD Primary Care Provider Encounter Details Date Type Department Care Team (Latest Contact Info) Description 08/29/2020 Orders Only [facility] Scanning, Provider Social History Tobacco Use Types Packs/Day Years Used Date Smoking Tobacco: Never Smokeless Tobacco: Never Alcohol Use Standard Drinks/Week Comments Yes 0 (1 standard drink = 0.6 oz pur e alcohol) rarely Comments No Sex and Gender Information Value Date Recorded Sex Assigned at Not on file Legal Sex Female 5:47 PM [employer] Gender Identity Not on file Sexual Orientation Not on file documented as of this encounter Plan of Treatment Not on file documented as of this encounter Procedures Procedure Name Priority Date/Time Associated Diagnosis Comments SCAN - LABS 08/29/2020 documented in this encounter Results * SCAN - LABS (08/29/2020) us Provider Scanning Final Result documented in this encounter Visit Diagnoses Not on filedocumented in this encounter Additional Health Concerns Infection Onset Date Last Indicated Resolved Time COVID: Suspected 09/28/2020 09/28/2020 09/28/2020 1:09 PM [employer] Respiratory Infection (ROSAMARIA), contact + droplet Comment:Automatically added due to negative COVID-19 result. 09/28/2020 09/28/2020 09/30/2020 11: 42 AM [employer] C. difficile 09/29/2020 09/29/2020 09/30/2020 11:4 1 AM [employer] C. difficile Comment:03/13/2022 Patient completed antibiotic course [...] documented as of this encounter Care Teams Director Of Regulatory Affairs Relationship Specialty Start Date End Date Danilo Mirza MD [address] [place] [address] PCP - General 11/14/19 09/27/20 Dannielle Lee MD [address] [place] [address] PCP - General 09/28/20 11/30/20 Austin Lee MD [address] [place] [address] PCP - General 12/01/20 12/08/20 Dannielle Lee MD [address] [place] [address] PCP - General 12/09/20 12/09/20 Austin Lee MD [address] [place] [address] PCP - General 12/10/20 12/11/20 Dannielle Lee MD [address] [place] [address] PCP - General 12/12/20 06/09/21 Niraj Crump NP [address], [place] [address] PCP - General 06/10/21 01/21/22 Austin Lee MD [address] [facility] [place] [id number] PCP - General 01/22/22 02/22/25 Fernanda Cooley MD [address] [facility] ([facility] Mailstop [id number] [place] [address] PCP - General Family Medicine 03/06/25 Macario Tinoco, PT Physical Therapist Physical Therapy 02/09/18 Jermaine Huertas, PT Physical Therapist Physical Therapy 02/21/18 Bria Bailey MD Referring Physician Obstetrics and Gynecology 03/31/18 Viktor Foley MD Surgeon General Surgery 08/30/18 Brianna Hough, RN [address] [facility] [address] [place] [address] [facility] Outpatient Institutional Custodian 12/27/23 01/20/24 Rochelle Givens, LLOYD [address] [facility] [phone] [place] [address] [facility] Outpatient Institutional Custodian 02/26/25 documented as of this encounter
--- OUTSIDE RECORDS SUMMARY | 2025-05-07 08:56 | XMS_ITS | Patient Health Record ---
Author Organization [facility] mike Address [address] [facility] [address] [place] [address] Care Team Providers Care Natural Resources Technician Name Role Phone Austin Lee MD Primary Care Provider Julita Cabral Unavailable [phone] Julita Lozano MD Unavailable Unavailable Suresh Garza Unavailable [phone] Allergies Allergen (clinical drug ingredient) Drug/Non Drug Allergy documented on EMR Reaction Allergy Type Onset Date Status aspirin Aspirin Unknown Drug Allergy 01/02/2019 Active azithromycin Azithromycin Unknown Drug Allergy 01/02/2019 Active Bee Sting Unknown Allergy 01/02/2019 Active Latex Latex Unknown Allergy 01/02/2019 Active Substance with penicillin structure and antibacterial mechanism of action (substance) Penicillins Unknown Drug Allergy 01/02/2019 Active Results Component Value Reference Range Notes CBC w auto diff Reviewed date:07/06/2024 09:45:06 PM Interpretation: Performing Lab:[facility] , [facility] [facility] [address] Notes/Report: WBC 8.6 3.8-9.9 K/cumm Hgb 11.1 11.9-15.5 g/dL Hct 36.6 35.6-45.5 % Platelet Ct 443 150-400 K/cumm MPV 10.3 9.1-12.3 fL RBC 3.68 3.90-5.20 M/cumm MCV 99.5 81.3-96.4 fL MCH 30.2 27.1-33.3 pg MCHC 30.3 32.3-35.7 g/dL RDW CV 12.4 11.1-14.9 % RDW SD 45.4 35.7-48.1 fL NRBC Abs Auto 0.00 0.00-0.01 K/cumm Comprehensive metabolic pane l (CMP) Reviewed date:07/07/2024 11:52:08 AM Interpretation: Performing Lab:[facility] , [address] [facility]. [facility] [address] Notes/Report: Sodium 142 135-145 mmol/L Plasma Potassium 4.0 3.3-4.9 mmol/L Chloride 107 97-110 mmol/L Total CO2 25 22-32 mmol/L Anion Gap 10 2-15 mmol/L BUN 14 6-25 mg/dL Creatinine 0.98 0.60-1.10 mg/dL Glucose 49 70-199 mg/dL Critical result called to and read back by DR Julita LOZANO on 2012 to [id number] Interpretive Data Fasting glucose >/= 126 mg/dl [...] Current interpretive data was last revised 2022. Total Calcium 8.2 8.5-10.3 mg/dL Total Bilirubin 0.2 0.1-1.2 mg/dL Plasma Total Protein 7.0 6.5-8.5 g/dL Albumin 3.7 3.5-5.0 g/dL Alkaline Phosphatase 66 40-130 Units/L ALT 28 7-45 Units/L AST 30 10-45 Units/L QTB Gold Reviewed date:08/23/2024 08:32:46 PM Interpretation: Performing Lab:[facility] , [address] [facility]. [facility] [address] Notes/Report: QuantiFERON TB Gold Negative Negative No interferon-gamma response to M. tuberculosis antigens was detected. Latent infection with M. tuberculosis is unlikely. A single negative result does not exclude infection with M. tuberculosis. In patients at high risk for M.tuberculosis infection, a second test should be considered in accordance with the 2017 ATS/IDSA/CDC Clinical Practice Guidelines for Diagnosis of Tuberculosis in Adults and Children [Niya AKERS et. al. Clin. Infect. Dis. 2017;64(2):111-115]. The reference range for the 'TB1 Ag minus Nil Result' and 'TB2 Ag minus Nil Result' is an Interferon-gamma level <0.35 IU/mL. TB-Nil 0.00 TB2-Nil 0.00 Mitogen-Nil 6.06 NIL 0.01 Test Performed by: [facility] [address] [id number] Net Mvc Developer: Lowell Thomas Ph.D.; CLIA# [id number] CBC w auto diff Reviewed date:01/09/2025 07:15:17 PM Interpretation: Performing Lab:[facility] , [address] [place] [address]. [place] [address] Notes/Report: WBC 6.79 3.80-9.90 K/cumm Hgb 8.9 11.9-15.5 g/dL Hct 30.3 35.6-45.5 % Platelet Ct 385 150-400 K/cumm MPV 9.7 9.1-12.3 fL RBC 3.45 3.90-5.20 M/cumm MCV 87.8 81.3-96.4 fL MCH 25.8 27.1-33.3 pg MCHC 29.4 32.3-35.7 g/dL RDW CV 14.3 11.1-14.9 % RDW SD 45.8 35.7-48.1 fL NRBC Abs Auto 0.00 0.00-0.01 K/cumm Comprehensive metabolic pane l (CMP) Reviewed date:01/09/2025 07:15:17 PM Interpretation: Performing Lab:[facility] , [address] [place] [address]. [place] [address] Notes/Report: Sodium 138 135-145 mmol/L Plasma Potassium 3.8 3.3-4.9 mmol/L Chloride 105 97-110 mmol/L Total CO2 24 22-32 mmol/L Anion Gap 9 2-15 mmol/L BUN 11 6-25 mg/dL Creatinine 0.74 0.60-1.10 mg/dL Glucose 63 70-199 mg/dL Interpretive Data Fasting glucose >/= 126 mg/dl [...] Current interpretive data was last revised 2022. Total Calcium 8.1 8.5-10.3 mg/dL Total Bilirubin 0.3 0.1-1.2 mg/dL Plasma Total Protein 6.9 6.5-8.5 g/dL Albumin 3.9 3.5-5.0 g/dL Alkaline Phosphatase 77 40-130 Units/L ALT 25 7-45 Units/L AST 27 10-45 Units/L CBC w auto diff Reviewed date:03/22/2025 03:47:51 PM Interpretation:Lab Result Generalized Performing Lab:[facility] , [address] [place] [address]. [place] [address] Notes/Report: WBC 6.76 3.80-9.90 K/cumm Hgb 11.1 11.9-15.5 g/dL Hct 36.8 35.6-45.5 % Platelet Ct 331 150-400 K/cumm MPV 10.9 9.1-12.3 fL RBC 4.21 3.90-5.20 M/cumm MCV 87.4 81.3-96.4 fL MCH 26.4 27.1-33.3 pg MCHC 30.2 32.3-35.7 g/dL RDW CV 23.8 11.1-14.9 % RDW SD 72.0 35.7-48.1 fL NRBC Abs Auto 0.00 0.00-0.01 K/cumm Comprehensive metabolic pane l (CMP) Reviewed date:03/22/2025 03:47:51 PM Interpretation:Lab Result Generalized Performing Lab:[facility] , [address] [place] [address]. [place] [address] Notes/Report: Sodium 139 135-145 mmol/L Plasma Potassium 4.0 3.3-4.9 mmol/L Chloride 105 97-110 mmol/L Total CO2 24 22-32 mmol/L Anion Gap 10 2-15 mmol/L BUN 11 6-25 mg/dL Creatinine 0.64 0.60-1.10 mg/dL Glucose 73 70-199 mg/dL Interpretive Data Fasting glucose >/= 126 mg/dl [...] Current interpretive data was last revised 2022. Total Calcium 8.7 8.5-10.3 mg/dL Total Bilirubin 0.2 0.1-1.2 mg/dL Plasma Total Protein 7.2 6.5-8.5 g/dL Albumin 3.9 3.5-5.0 g/dL Alkaline Phosphatase 75 40-130 Units/L ALT 23 7-45 Units/L AST 25 10-45 Units/L Iron Profile Reviewed date:03/22/2025 03:47:51 PM Interpretation:Lab Result Generalized Performing Lab:[facility] , [address] [place] [address]. [place] [address] Notes/Report: Total Iron 46 35-145 mcg/dL Total Iron Bind Capacity 335 250-400 mcg/dL Transferrin Saturation 14 20-50 % Differential Automated Reviewed date:07/06/2024 09:45:13 PM Interpretation: Performing Lab:[facility] , [address] [place] [address]. [place] [address] Notes/Report: Neut Abs 5.2 1.5-6.5 K/cumm ImmGran Abs 0.0 0.0-0.1 K/cumm Lymphocyte Abs 2.2 0.8-3.3 K/cumm [place] Abs 0.9 0.2-0.8 K/cumm Eos Abs 0.2 0.0-0.5 K/cumm Baso Abs 0.1 0.0-0.1 K/cumm Neut Pct 60.8 Interpretive Data Percent cell count reference ranges are not reported, since discordance with absolute values may lead to misinterpretation of CBC data. Current Interpretive Data was last revised on 2017. ImmGran Pct 0.2 Interpretive Data Percent cell count reference ranges are not reported, since discordance with absolute values may lead to misinterpretation of CBC data. Current Interpretive Data was last revised on 2017. Lymph Pct 25.5 Interpretive Data Percent cell count reference ranges are not reported, since discordance with absolute values may lead to misinterpretation of CBC data. Current Interpretive Data was last revised on 2017. [place] Pct 10.4 Interpretive Data Percent cell count reference ranges are not reported, since discordance with absolute values may lead to misinterpretation of CBC data. Current Interpretive Data was last revised on 2017. Eos Pct 2.3 Interpretive Data Percent cell count reference ranges are not reported, since discordance with absolute values may lead to misinterpretation of CBC data. Current Interpretive Data was last revised on 2017. Baso Pct 0.8 Interpretive Data Percent cell count reference ranges are not reported, since discordance with absolute values may lead to misinterpretation of CBC data. Current Interpretive Data was last revised on 2017. eGFR Reviewed date:07/06/2024 09:45:20 PM Interpretation: Performing Lab:[facility] , [address] [place] [address]. [facility] [address] Notes/Report: eGFR 76 >=60 mL/min/1.73 m2 Interpretive Data Reference Interval Normal >/= 90 [...] Current interpretive data was last reviewed 2021. Differential Automated Reviewed date:01/09/2025 07:15:17 PM Interpretation: Performing Lab:[facility] , [facility] [facility]. [place] [address] Notes/Report: Neut Abs 3.88 1.50-6.50 K/cumm ImmGran Abs 0.02 0.00-0.10 K/cumm Lymphocyte Abs 1.96 0.80-3.30 K/cumm [place] Abs 0.72 0.20-0.80 K/cumm Eos Abs 0.16 0.00-0.50 K/cumm Baso Abs 0.05 0.00-0.10 K/cumm Neut Pct 57.1 Interpretive Data Percent cell count reference ranges are not reported, since discordance with absolute values may lead to misinterpretation of CBC data. Current Interpretive Data was last revised on 2017. ImmGran Pct 0.3 Interpretive Data Percent cell count reference ranges are not reported, since discordance with absolute values may lead to misinterpretation of CBC data. Current Interpretive Data was last revised on 2017. Lymph Pct 28.9 Interpretive Data Percent cell count reference ranges are not reported, since discordance with absolute values may lead to misinterpretation of CBC data. Current Interpretive Data was last revised on 2017. [place] Pct 10.6 Interpretive Data Percent cell count reference ranges are not reported, since discordance with absolute values may lead to misinterpretation of CBC data. Current Interpretive Data was last revised on 2017. Eos Pct 2.4 Interpretive Data Percent cell count reference ranges are not reported, since discordance with absolute values may lead to misinterpretation of CBC data. Current Interpretive Data was last revised on 2017. Baso Pct 0.7 Interpretive Data Percent cell count reference ranges are not reported, since discordance with absolute values may lead to misinterpretation of CBC data. Current Interpretive Data was last revised on 2017. eGFR Reviewed date:01/09/2025 07:15:17 PM Interpretation: Performing Lab:[facility] , [facility] [facility]. [place] [address] Notes/Report: eGFR >90 >=60 mL/min/1.73 m2 Interpretive Data Reference Interval Normal >/= 90 [...] Current interpretive data was last reviewed 2021. Differential Automated Reviewed date:03/22/2025 03:48:03 PM Interpretation: Performing Lab:[facility] , [address] [place] [address]. [facility] [address] Notes/Report: Neut Abs 4.24 1.50-6.50 K/cumm ImmGran Abs 0.02 0.00-0.10 K/cumm Lymphocyte Abs 1.81 0.80-3.30 K/cumm [place] Abs 0.54 0.20-0.80 K/cumm Eos Abs 0.09 0.00-0.50 K/cumm Baso Abs 0.06 0.00-0.10 K/cumm Neut Pct 62.7 Interpretive Data Percent cell count reference ranges are not reported, since discordance with absolute values may lead to misinterpretation of CBC data. Current Interpretive Data was last revised on 2017. ImmGran Pct 0.3 Interpretive Data Percent cell count reference ranges are not reported, since discordance with absolute values may lead to misinterpretation of CBC data. Current Interpretive Data was last revised on 2017. Lymph Pct 26.8 Interpretive Data Percent cell count reference ranges are not reported, since discordance with absolute values may lead to misinterpretation of CBC data. Current Interpretive Data was last revised on 2017. [place] Pct 8.0 Interpretive Data Percent cell count reference ranges are not reported, since discordance with absolute values may lead to misinterpretation of CBC data. Current Interpretive Data was last revised on 2017. Eos Pct 1.3 Interpretive Data Percent cell count reference ranges are not reported, since discordance with absolute values may lead to misinterpretation of CBC data. Current Interpretive Data was last revised on 2017. Baso Pct 0.9 Interpretive Data Percent cell count reference ranges are not reported, since discordance with absolute values may lead to misinterpretation of CBC data. Current Interpretive Data was last revised on 2017. eGFR Reviewed date:03/22/2025 03:48:03 PM Interpretation: Performing Lab:[facility] , [address] [facility] [address] Notes/Report: eGFR >90 >=60 mL/min/1.73 m2 Interpretive Data Reference Interval Normal >/= 90 [...] Current interpretive data was last reviewed 2021. Reason For Referral Reason Simponi Aria [employer] - OLD INSURANCE Diagnosis 1 Rheumatoid arthritis without rheumatoid factor, multiple sites (M06.09) Referral Organization [facility] shawn Referring Provider First Name Julita Referring Provider Last Name Cordell Referring Provider Speciality Rheumatolo gy Referred Organization [facility] shawn Referred Provider Julita Lozano Referred Address [address] [facility] [address],[place], [place],[address], Referred Provider Specialty Rheumatology Procedure 1 INJECTION GOLIMUMAB 1 MG FOR IV USE (J1602) Referral Priority Routine Reason Klaudia Merida [employer] Diagnosis 1 Rheumatoid arthritis without rheumatoid factor, multiple sites (M06.09) Referral Organization [facility] shawn Referring Provider First Name Julita Referring Provider Last Name Cordell Referring Provider Speciality Rheumatolo gy Referred Organization [facility] shawn Referred Provider Julita Lozano Referred Address [address],[place], [place],[address], Referred Provider Specialty Rheumatology Procedure 1 INJECTION GOLIMUMAB 1 MG FOR IV USE (J1602) Referral Priority Routine Medications Medication SIG (Take, Route, Frequency, Duration) Notes Start Date End Date Status Cyclobenzaprine HCl 10 MG 1/2 qam, 1 qhs Orally; Duration: 30 days 07/20/2025 Active LORazepam 0.5 MG prn Oral Act aden Benadryl Allergy 25 MG one at bedtime Oral Active Tikosyn 125 MCG 2 capsules Orally Twice a day; Duration: 30 day(s) Active Entresto - bid - *Pick strength-form from [employer] for eRX* Active Farxiga - take 1 tablet daily oral *Pick strength-form from [facility] for eRX* Active Cymbalta 60 MG take 2 capsules (120 mg) by oral route once daily Oral 1; Duration: 30 days Active Pregabalin 200 MG Take 1 capsule by mouth twice daily Orally; Duration: 90 days 03/09/2025 06/07/2025 Active Jardiance 10 MG 1 tablet Orally Once a day Active Metoprolol Succinate 25 MG 1/2 capsule Orally Once a day; Duration: 30 day(s) Active Problems Problem Type SNOMED Code ICD Code Onset Dates Problem Status W/U Status Risk Notes Problem Rheumatoid arthritis (60331802) Rheumatoid arthritis without rheumatoid factor, multiple sites (M06.09) Active confirmed Problem Solitary sacroiliitis (726035558) Sacroiliitis, not elsewhere classified (M46.1) Active confirmed Problem Other specified inflammatory spondylopathies, 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) Active confirmed Problem Sacrococcygeal disorders, not elsewhere classified (M53.3) Active confirmed Problem Fibromyalgia (648125733) Fibromyalgia (M79.7) Active confirmed Problem Pain in coccyx (finding) (12437675) Coccyx pain (M53.3) Active confirmed Vital Signs Heart Rate 91 /min 03/22/2025 Temperature 97.5 degrees Fahrenheit 03/22/2025 Height-cm 157.48 cm 03/22/2025 Oximetry 96 % 07/06/2024 Blood pressure diastolic 70 mm Hg 03/22/2025 Weight-kg 97.52 kg 03/22/2025 Height 62 in 03/22/2025 Blood pressure systolic 114 mm Hg 03/22/2025 Weight 215 lbs 03/22/2025 BMI 39.32 kg/m2 03/22/2025 Procedures Procedure Date Ordered Date Performed Result Body Sit e MAJOR JOINT INJECTION W/ US 08/21/2024 N/A Encounters Encounter Location Date Provider Diagnosis [facility] [address] [place] [address] 06/29/2024 Suresh Kayla Sacroiliitis, not elsewhere classified M46.1 and Other specified inflammatory spondylopathies, lumbosacral region M46.87 [facility] [address] [place] [address] 07/06/2024 Julita Du Rheumatoid arthritis without rheumatoid factor, multiple sites M06.09 ; MUSA positive R76.8 ; Fibromyalgia M79.7 ; High risk medication use Z79.899 and Coccyx pain M53.3 [facility] [address] [place] [address] 08/21/2024 Suresh Kayla Sacrococcygeal disorders, not elsewhere classified M53.3 [facility] [address] [place] [address] 08/21/2024 Julita Du Rheumatoid arthritis without rheumatoid factor, multiple sites M06.09 [facility] [address] [place] [address] 09/19/2024 Julita Du Rheumatoid arthritis without rheumatoid factor, multiple sites M06.09 [facility] [address] [place] [address] 09/19/2024 Suresh Kayla Sacrococcygeal disorders, not elsewhere classified M53.3 [facility] [address] [place] [address] 11/14/2024 Julita Du Rheumatoid arthritis without rheumatoid factor, multiple sites M06.09 [facility] [address] [place] [address] 11/14/2024 Julita Du Rheumatoid arthritis without rheumatoid factor, multiple sites M06.09 ; MUSA positive R76.8 ; Fibromyalgia M79.7 ; High risk medication use Z79.899 and Coccyx pain M53.3 [facility] [address] [place] [address] 01/09/2025 Julita Du Rheumatoid arthritis without rheumatoid factor, multiple sites M06.09 [facility] [address] [place] [address] 03/06/2025 Julita Du [facility] [address] [place] [address] 03/22/2025 Julita Du Rheumatoid arthritis without rheumatoid factor, multiple sites M06.09 [facility] [address] [place] [address] 03/22/2025 Julita Du Rheumatoid arthritis without rheumatoid factor, multiple sites M06.09 ; MUSA positive R76.8 ; Fibromyalgia M79.7 ; High risk medication use Z79.899 and Coccyx pain M53.3 [facility] [address] [place] [address] 06/14/2024 Julita Du Rheumatoid arthritis without rheumatoid factor, multiple sites M06.09 [facility] [address] [place] [address] 07/06/2024 Julita Du Rheumatoid arthritis without rheumatoid factor, multiple sites M06.09 [facility] [address] [place] [address] 07/25/2024 Suresh Garza [facility] [address] [place] [address] 08/08/2024 Julita Du [facility] [address] [place] [address] 08/14/2024 Julita Du [facility] [address] [place] [address] 08/17/2024 Julita Du [facility] [address] [place] [address] 08/17/2024 Suresh Garza [facility] [address] [place] [address] 09/11/2024 [facility] [address] [place] [address] 09/27/2024 [facility] [address] [place] [address] 10/30/2024 [facility] [address] [place] [address] 11/13/2024 [facility] [address] [place] [address] 01/09/2025 [facility] [address] [place] [address] 03/08/2025 [facility] [address] [place] [address] 03/09/2025 [facility] [address] [place] [address] 03/22/2025 [facility] Rheumatoid arthritis without rheumatoid factor, multiple sites M06.09 Assessments Encounter Date Diagnosis (ICD Code) Assessment Notes Treatment Notes Treatment Clinical Notes Section Notes 06/14/2024 Rheumatoid arthritis without rheumatoid factor, multiple sites (ICD-10 - M06.09) 06/29/2024 Sacroiliitis, not elsewhere classified (ICD-10 - M46.1) 06/29/2024 Other specified inflammatory spondylopathies, lumbosacral region (ICD-10 - M46.87) 07/06/2024 Rheumatoid arthritis without rheumatoid factor, multiple sites (ICD-10 - M06.09) uncontrolled, failed methotrexate, leflunomide, plaquenil and humira, will start simponi aria infusion, continue lyrica and cymbalta, labs today 07/06/2024 Rheumatoid arthritis without rheumatoid factor, multiple sites (ICD-10 - M06.09) 08/21/2024 Sacrococcygeal disorders, not elsewhere classified (ICD-10 - M53.3) 08/21/2024 Rheumatoid arthritis without rheumatoid factor, multiple sites (ICD-10 - M06.09) 09/19/2024 Rheumatoid arthritis without rheumatoid factor, multiple sites (ICD-10 - M06.09) 09/19/2024 Sacrococcygeal disorders, not elsewhere classified (ICD-10 - M53.3) We discussed re-injection, exercise/ther apy work, and PRP. She will do her pelvic floor exercises and return in the next moth for injection versus PRP 11/14/2024 Rheumatoid arthritis without rheumatoid factor, multiple sites (ICD-10 - M06.09) 11/14/2024 Rheumatoid arthritis without rheumatoid factor, multiple sites (ICD-10 - M06.09) simponi aria infusion helping, will continue, increase flexeril to 5mg qam, 10mg qhs for back, continue lyrica and cymbalta 01/09/2025 Rheumatoid arthritis without rheumatoid factor, multiple sites (ICD-10 - M06.09) 03/22/2025 Rheumatoid arthritis without rheumatoid factor, multiple sites (ICD-10 - M06.09) 03/22/2025 Rheumatoid arthritis without rheumatoid factor, multiple sites (ICD-10 - M06.09) simponi aria infusion helping, will continue, increase flexeril to 5mg qam, 10mg qhs for muscle pain, continue lyrica and cymbalta, she wants iron checked, ordered 03/22/2025 Rheumatoid arthritis without rheumatoid factor, multiple sites (ICD-10 - M06.09) 11/14/2024 MUSA positive (ICD-10 - R76.8) simponi aria infusion helping, will continue, increase flexeril to 5mg qam, 10mg qhs for back, continue lyrica and cymbalta 03/22/2025 MUSA positive (ICD-10 - R76.8) simponi aria infusion helping, will continue, increase flexeril to 5mg qam, 10mg qhs for muscle pain, continue lyrica and cymbalta, she wants iron checked, ordered 07/06/2024 MUSA positive (ICD-10 - R76.8) uncontrolled, failed methotrexate, leflunomide, plaquenil and humira, will start simponi aria infusion, continue lyrica and cymbalta, labs today 07/06/2024 Fibromyalgia (ICD-10 - M79.7) uncontrolled, failed methotrexate, leflunomide, plaquenil and humira, will start simponi aria infusion, continue lyrica and cymbalta, labs today 03/22/2025 Fibromyalgia (ICD-10 - M79.7) simponi aria infusion helping, will continue, increase flexeril to 5mg qam, 10mg qhs for muscle pain, continue lyrica and cymbalta, she wants iron checked, ordered 11/14/2024 Fibromyalgia (ICD-10 - M79.7) simponi aria infusion helping, will continue, increase flexeril to 5mg qam, 10mg qhs for back, continue lyrica and cymbalta 11/14/2024 High risk medication use (ICD-10 - Z79.899) simponi aria infusion helping, will continue, increase flexeril to 5mg qam, 10mg qhs for back, continue lyrica and cymbalta 03/22/2025 High risk medication use (ICD-10 - Z79.899) simponi aria infusion helping, will continue, increase flexeril to 5mg qam, 10mg qhs for muscle pain, continue lyrica and cymbalta, she wants iron checked, ordered 07/06/2024 High risk medication use (ICD-10 - Z79.899) uncontrolled, failed methotrexate, leflunomide, plaquenil and humira, will start simponi aria infusion, continue lyrica and cymbalta, labs today 07/06/2024 Coccyx pain (ICD-10 - M53.3) uncontrolled, failed methotrexate, leflunomide, plaquenil and humira, will start simponi aria infusion, continue lyrica and cymbalta, labs today 03/22/2025 Coccyx pain (ICD-10 - M53.3) simponi aria infusion helping, will continue, increase flexeril to 5mg qam, 10mg qhs for muscle pain, continue lyrica and cymbalta, she wants iron checked, ordered 11/14/2024 Coccyx pain (ICD-10 - M53.3) simponi aria infusion helping, will continue, increase flexeril to 5mg qam, 10mg qhs for back, continue lyrica and cymbalta 06/14/2024 not on DMARDS, order labs and Xrays, restart flexeril, continue lyrica and cymbalta, return in 3 months Plan Of Treatment Pending Test Test Name Order Date X ray : Spines, lumbosacral 03/14/2024 X ray : SI joint, left 03/14/2024 X ray : SI joint, right 03/14/2024 MAJOR JOINT INJECTION W/ US 08/21/2024 Lumbo - Pelvic Bone/SPECT 06/29/2024 Next Appt Details Provider Name:Julita Cordell, 05/21 08:30:00 AM, [address], [place], [address], Provider Name:Julita Lozano, 07/16 08:00:00 AM, [address], [place], [address], Insurance Providers Payer Name Payer Address Payer Phone Subscriber Number Group Number Insured Name Patient Relationship to Insured Coverage Start Date Coverage End Date Aetna - Choice/O A [address] [place] [phone] [id number] MtsNyla lopez Self - patient is the insured Co-Pay Assist [address] [place] [address] [id number] Mtsjessica Nyla Self - patient is the insured [place] [address] [place] [address] [phone] [id number] Mtsmariaha Nyla Self - patient is the insured DO NOT USE - use ins id # [id number] Mtsjessica Nyla Self - patient is the insured [employer] e [address] [place] [address] [id number] Mtseka Nyla Self - patient is the insured 9 Aetna - Choice/O A [address] [place] [phone] [id number] Nyla Rivera Self - patient is the insured Medical (General) History Medical History History ICD Code Anxiety; Bacterial vaginosis; Brain injury; Depression; Fibromyalgia; Hypothyroidism; Migraine; Pulmonary hypertension; Sleep apnea; atrial fibrillation, cardiomyoapthy, LVE F 50% Surgical History Surgery Date(Month/Year) C section; 2019-01-02 Hernia Repair; 2019-01-02 cholecystectomy; 2019-01-02
[2025-05-07 10:00] LABS: Alanine Aminotransferase 25 U/L (6-35); Albumin Level 3.7 g/dL (3.5-5.1); Alkaline Phosphatase 68 U/L (38-126); Anion Gap 6 mmol/L (4-12); Aspartate Amino Transferase 38 U/L (14-36); Bilirubin,Total 0.3 mg/dL (0.2-1.3); Blood Urea Nitrogen 14 mg/dL (7-17); Calcium 8.5 mg/dL (8.4-10.2); Carbon Dioxide 27 mmol/L (22-30); Chloride 104 mmol/L (98-107); Estimated Glomerular Filt Rate > 60; Glucose 88 mg/dL (65-110); Potassium 4.0 mmol/L (3.4-5.0); Sodium 137 mmol/L (137-145); Total Protein 7.4 g/dL (6.3-8.2)
[2025-05-07 10:01] LABS: Iron 61 ug/dL (37-170)
[2025-05-07 10:10] LABS: Percent Iron Saturation 16 % (20-50)
[2025-05-07 10:42] LABS: Ferritin 16.30 ng/mL (6.24-137)
[2025-05-07 11:11] LABS: Vitamin B12 221.0 pg/mL (239-931)
== END 2025-05-07 08:37 | disposition home or self-care (01) ==
LOC: ANHLAB 08:39
PROVIDERS: Visit Provider Internal Medicine Hematology & Oncology
DX: D64.9 Anemia, unspecified (principal)
CPT/HCPCS: 36415; 80053; 82607; 82728; 82746; 83540; 83550; 85025

== ENCOUNTER 2025-08-28 11:27 | Outpatient (CLI) | payer OTHER, SELFPAY ==
--- OUTSIDE RECORDS SUMMARY | 2025-07-17 02:30 | XMS_ITS ---
Author Organization [facility] mike Address [address] [facility] [address] [place] [address] Care Team Providers Care Tank Cooper Name Role Phone Addie INGRAM, Fernanda Primary Care Provider U Julita Moore Unavailable [phone] Julita Lozano MD Unavailable Unavailable REASON FOR VISIT Infusion, Simponi, 200mg, 4 vials, YD Encounters Encounter Location Date Provider Diagnosis [facility] [address] [facility] [address] [place] [address] 07/17/2025 Julita Lozano Plan Of Treatment Next Appt Details Provider Name:Julita Lozano, 09/11 09:00:00 AM, [address] [facility] [facility], [place], [address], Provider Name:Benigno steward, 11/06/2025 09:00:00 AM, [address] [facility] [facility] [address], [place], [address], Progress Notes * Nyla BIRCH CDOB:[birth year] (40 yo F)Acc No.[id number]:07/17/2025 Simponi Infusion Patient: Nyla SHANE Appointment Provider: Uday LOZANO MD :1985 A ge:40 Y S ex:Female Date:07/17/2025 [address] [facility] Pcp:Fernanda Real MD Subjective: * Chief Complaints: * 1 . Infusion, Simponi, 200mg, 4 vials, YD. * Medical History: Objective: * Vitals: Assessment: Plan: * Treatment: * Billing Information: * Visit Code: * Procedure Codes: * Electronic signature of Julita Lozano MD on 08/28/2025 at 01:51 PM LEAD ELECTRICAL ENGINEER Sign off status: Pending * Appointment Provider: Uday LOZANO MD Date: 09/16/2024 Generated for Mckenna kimbrough/Jessica/Meiritting on: 10/29/2024 01:51 PM LEAD ELECTRICAL ENGINEER
[2025-08-28 11:45] LABS: Hematocrit 37.3 % (37.0-47.0); Hemoglobin 11.7 g/dL (12.0-15.0); Mean Corpuscular HGB Conc 31.4 g/dl (32-36); Mean Corpuscular Hemoglobin 28.8 pg (26-34); Mean Corpuscular Volume 91.9 fl (80-100); Platelet Count Result 381 k/mm3 (150-375); Red Blood Count 4.06 M/mm3 (4.2-5.4); White Blood Count 7.4 K/mm3 (4.5-10.0)
[2025-08-28 12:15] LABS: Iron 33 ug/dL (37-170)
[2025-08-28 12:24] LABS: Percent Iron Saturation 8 % (20-50)
[2025-08-28 12:57] LABS: Ferritin 9.49 ng/mL (6.24-137)
[2025-08-28 13:22] LABS: Vitamin B12 511.0 pg/mL (239-931)
--- OUTSIDE RECORDS SUMMARY | 2025-08-28 13:52 | XMS_ITS | Clinical Summary ---
Author Organization [facility] Address [address] [facility] [place] [address] Care Team Providers Care House Visitor Name Role Phone Patience Chapa Primary Care Provider [phone] Source Comments [facility],non-owned Affiliates and Associated Physician Practices is amultiple site organization consisting of ambulatory clinics and hospital sitesin [place], [place], [place] and [place]. This disclosure is being madepursuant to the Care Everywhere program and may not contain all information available regarding this patient. Last updated 18.[facility] Allergies Active Allergy Reactions Criticality Noted Date [...] 2 times daily 04/29/2018 Active nystatin (MYCOSTATIN) 999779 UNIT/GM cream 05/31/2018 Active Vit-Fe Fumarate-FA ( [...] on file Legal Sex Female 5:34 PM ARC WELDING MACHINE OPERATOR Gender Identity Not on file Sexual Orientation Not on file Last Filed Vital Signs Vital Sign Reading Time Taken Comments Blood Pressure 122/80 08/17/2018 2:45 PM ARC WELDING MACHINE OPERATOR Pulse - - Temperature - - Respiratory Rate - - Oxygen Saturation - - Inhaled Oxygen Concentration - - Weight 112.5 kg (248 lb) 08/17/2018 2:45 PM ARC WELDING MACHINE OPERATOR Height 157.5 cm (5' 2) 08/17/2018 2:45 PM ARC WELDING MACHINE OPERATOR Body Mass Index 45.36 08/17/2018 2:45 PM ARC WELDING MACHINE OPERATOR Plan of Treatment Health Maintenance Due Date Last Done Comments HIV SCREENING 2002 HEPATITIS C SCREENING 05/10/2005 DTAP/TDAP/TD VACCINES (1 - Tdap) 2006 HEPATITIS B VACCINE (1 of 3 - 19+ 3-dose series) 2006 HPV VACCINE (1 - 3-dose SCDM series) 2014 DEPRESSION SCREENING 09/13/2024 COVID-19 VACCINE (1 - 2024-2 6 season) 2025 INFLUENZA VACCINE (#1) 2025 ZOSTER VACCINE (1 [...] MEDICAID - OUT OF STATE Care Teams House Visitor Relationship Specialty Start Date End Date Patience Chapa PA [address] [place] [address] PCP - General 08/17/18
--- OUTSIDE RECORDS SUMMARY | 2025-08-28 13:52 | XMS_ITS | Encounter Summary ---
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
--- OUTSIDE RECORDS SUMMARY | 2025-08-28 13:52 | XMS_ITS | Encounter Summary ---
Author Organization [facility] Address [address] [place] [address] Care Team Providers Care Manufacturing Test Engineer Name Role Phone Macario Tinoco PT Unavailable Unavailable Jermaine Huertas PT Unavailable Unavaila Bria Salamanca MD Unavailable [phone] Viktor Foley MD Unavailable [phone] Rochelle Givens [facility] Unavailable Fernanda Cooley MD Primary Care Provider Reason for Visit * Reason Onset Date Comments Medical Question/Miscellaneous 08/22/2025 Encounter Details Date Type Department Care Team (Late st Contact Info) Description 08/22/2025 Telephone [facility] [id number] [place] [address] Fernanda Cooley MD [address] [place] [address] [address] [place] [address] Medical Question/Miscellaneous Social History Tobacco Use Types Packs/Day Years Used Date Smoking Tobacco: Never Smokeless Tobacco: Never Alcohol Use Standard Drinks/Week Comments Not Currently 0 (1 standard drink = 0.6 oz pur e alcohol) rarely [facility] Utilities Answer Date Recorded In the past 12 months has [employer] electric, gas, oil, or water company threatened to shut off services in your home? No 02/27/2025 Social Connection and Isolation Panel Answer Date Recorded In a typical week, how many times do you talk on the phone with family, friends, or neighbors? Twice a week 02/27/2025 How often do you get together with friends or re latives? Twice a week 02/27/2025 How often do you attend anabaptist or synagogue serv ices? Never 02/27/2025 Do you belong to any clubs o r organizations such as anabaptist groups, unions, fraternal or athletic groups, or school groups? No 02/27/2025 How often do you attend meet ings of the clubs or organizations you belong to? Never 02/27/2025 Are you , , di vorced, , never , or living with a partner? 02/27/2025 Overall Financial Resource Strain (CARDIA) Answe r Date Recorded How hard is it for you to pa y for the very basics like food, housing, medical care, and heating? Somewhat hard 02/27/2025 PHQ-2 Answer Date Recorded PHQ-2 Total Score 0 07/02/2025 Hunger Vital Sign Answer Date Recorded Within [...] things needed for daily living? No 02/27/2025 PHQ-9 Answer Date Recorded PHQ-9 Total Score 0 07/02/2025 Housing Stability Vital Sign Answer Clyde e Recorded In the last 12 months, was t here a time when you were not able to pay the mortgage or rent on time? No 02/27/2025 In the past 12 months, how m any times have you moved where you were living? 0 02/27/2025 At any time in the past 12 m [facility], were you homeless or living in a residential (including now)? No 02/27/2025 AUDIT-C Answer Date Recorded Q1: How often do you have a drink containing alcohol? Never 07/02/2025 Q2: How many drinks containi ng alcohol do you have on a typical day when you are drinking? Patient does not drink Q3: How often do you have si x or more drinks on one occasion? Never 07/02/2025 Personal Safety Answer Date Recorded Have you ever been in or are you currently in a harmful physical or emotional relationship or is someone making you feel afraid or unsafe? Denies 02/22/2025 Comments No Sex and Gender Information Value Date Recorded Sex Assigned at Not on file Legal Sex Female 5:47 PM ASSOCIATE PROFESSOR OF GEOGRAPHY Gender Identity Not on file Sexual Orientation Not on file documented as of this encounter Miscellaneous Notes * Telephone Encounter - Lakisha Sharif - 08/22/2025 3:11 PM CST Medical Question/Miscellaneous Caller???s Concern: Patient is at [facility] having labs drawn. Was told by [facility] the order says [facility] needs to be changed to [facility]. Per Back[facility], informed the patient will switch the order to [facility]. Does message need to be routed? Yes-FYI Only CIATE PROFESSOR OF GEOGRAPHY documented in this encounter Plan of Treatment Not on file documented as of this encounter Visit Diagnoses Not on filedocumented in this encounter Care Teams Manufacturing Test Engineer Relationship Specialty Start Date End Date Fernanda Cooley MD [address] [facility] ([facility] Mailstop [phone] [place] [address] PCP - General Family Medicine 03/06/25 Macario Tinoco, PT Physical Therapist Physical Therapy 02/09/18 Jermaine Huertas, PT Physical Therapist Physical Therapy 02/21/18 Bria Bailey MD Referring Physician Obstetrics and Gynecology 03/31/18 Viktor Foley MD Surgeon General Surgery 08/30/18 Rochelle Givens, REAL ESTATE EXECUTIVE ASSISTANT [address] [facility] ([facility]) Mailstop [phone] [place] [address] SHOP Outpatient Drill Runner 02/26/25 documented as of this encounter
--- OUTSIDE RECORDS SUMMARY | 2025-08-28 13:52 | XMS_ITS | Encounter Summary ---
Author Organization [facility] Address [address] [place] [address] Phone Care Team Providers Care Hplc Chemist Name Role Phone Macario Tinoco PT Unavailable Unavailable Jermaine Huertas PT Unavailable Unavaila Bria Salamanca MD Unavailable [phone] Viktor Foley MD Unavailable [phone] Danilo Mirza MD Primary Care Provider [phone] Dannielle Lee MD Primary Care Provider [phone] Austin Lee MD Primary Care Provider [phone] Dannielle Lee MD Primary Care Provider [phone] Austin Lee MD Primary Care Provider [phone] Dannielle Lee MD Primary Care Provider [phone] Niraj Crump NP Primary Care Provider + Austin Lee MD Primary Care Provider [phone] Brianna Hough RN Unavailable [phone] Rochelle Givens LCSW Unavailable [phone] Fernanda Cooley MD Primary Care Provider Encounter [...] on file Legal Sex Female 5:47 PM HISTOLOGIST Gender Identity Not on file Sexual Orientation [...] COVID: Suspected 09/28/2020 09/28/2020 09/28/2020 1:09 PM HISTOLOGIST Respiratory Infection (ROSAMARIA), contact + droplet Comment:Automatically added due to negative COVID-19 result. 09/28/2020 09/28/2020 09/30/2020 11: 42 AM HISTOLOGIST C. difficile 09/29/2020 09/29/2020 09/30/2020 11:4 1 AM HISTOLOGIST C. difficile Comment:03/13/2022 Patient completed antibiotic course [...] documented as of this encounter Care Teams Hplc Chemist Relationship Specialty Start Date End Date Danilo Mirza MD [address] [place] [address] PCP - General 11/14/19 09/27/20 Dannielle Lee MD [address] [place] [address] PCP - General 09/28/20 11/30/20 Austin Lee MD [address] [place] [address] PCP - General 12/01/20 12/08/20 Dannielle Lee MD [address] [place] [address] PCP - General 12/09/20 12/09/20 Austin Lee MD [address] [place] [address] PCP - General 12/10/20 12/11/20 Dannielle Lee MD [address] [place] [address] PCP - General 12/12/20 06/09/21 Niraj Crump NP [address], [place] [address] PCP - General 06/10/21 01/21/22 Austin Lee MD [address] [facility] [place] [address] PCP - General 01/22/22 02/22/25 Fernanda Cooley MD [address] [facility] ([facility] Mailstop [phone] [place] [address] PCP - General Family Medicine 03/06/25 Macario Tinoco, PT Physical Therapist Physical Therapy 02/09/18 Jermaine Huertas, PT Physical Therapist Physical Therapy 02/21/18 Bria Bailey MD Referring Physician Obstetrics and Gynecology 03/31/18 Viktor Foley MD Surgeon General Surgery 08/30/18 Brianna Hough, RN [address] [facility] [address] [place] [address] SHOP Outpatient Platform Power Technician 12/27/23 01/20/24 Rochelle Givens, LLOYD [address] [facility] ([facility]) [facility] [phone] [place] [address] SHOP Outpatient Platform Power Technician 02/26/25 documented as of this encounter
--- OUTSIDE RECORDS SUMMARY | 2025-08-28 13:52 | XMS_ITS | Clinical Summary ---
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 Not on file Not on file Last Filed Vital Signs Vital Sign Reading Time Taken Comments Blood Pressure 102/76 10/12/2016 12:28 PM MILKING MACHINE MECHANIC Pulse 72 10/12/2016 12:24 PM MILKING MACHINE MECHANIC Temperature - - Respiratory Rate 16 10/12/2016 12:24 PM MILKING MACHINE MECHANIC Oxygen Saturation - - Inhaled Oxygen Concentration - - Weight 114.8 kg (253 lb) 10/12/2016 12:24 PM MILKING MACHINE MECHANIC Height 157.5 cm (5' 2) 10/12/2016 12:24 PM MILKING MACHINE MECHANIC Body Mass Index 46.27 10/12/2016 12:24 PM MILKING MACHINE MECHANIC Plan of Treatment Health Maintenance Due Date [...] Cancer Screening with HPV 2017 COVID-19 Vaccine (2024-2 6 season) 2025 Influenza Adult (#1) 2025 Hepatitis A Vaccines Aged Out No long er eligible based on patient's age to complete this topic Meningococcal B Vaccine Aged Out No l [...] age to complete this topic Insurance MEDICAID Member Subscriber Plan / Payer (Ef fective 2017-Present) Name:Nyla Rivera Relation to Subscriber:Self Name:NYLA BLACKMON Payer ID:Not on file Group ID:Not on file Type:Not on file Address: [place] [id number] DEPT OF [address]
--- OUTSIDE RECORDS SUMMARY | 2025-08-28 13:52 | XMS_ITS | Encounter Summary ---
Author Organization [facility] Address [address] [place] [address] Phone Care Team Providers Care Housekeeper And Laundry Assistant Name Role Phone Macario Tinoco PT Unavailable Unavailable Jermaine Huertas PT Unavailable Unavaila Bria Salamanca MD Unavailable [phone] Viktor Foley MD Unavailable [phone] Rochelle Givens [facility] Unavailable [phone] Fernanda Cooley MD Primary Care Provider Encounter Details Date Type Department Care Team (Late st Contact Info) Description 07/13/2025 Results Follow-Up [facility] Medicine Cardiology [address] [facility] [address] [place] [address] Talia Hill, ALEKSANDRA [address] [facility] [address] [place] [address] MCT Mobile Cardiac Telemetry Event Monitor Social History Tobacco Use Types Packs/Day Years Used Date Smoking Tobacco: Never Smokeless Tobacco: Never Alcohol Use Standard Drinks/Week Comments Not Currently 0 (1 standard drink = 0.6 oz pur e alcohol) rarely [facility] Utilities Answer Date Recorded In the past 12 months has [employer] electric, gas, oil, or water company threatened [...] week 02/27/2025 How often do you attend orthodox or sikhism serv ices? Never 02/27/2025 Do you belong to any clubs o r organizations such as orthodox groups, unions, fraternal or athletic groups, or [...] any time in the past 12 m [facility], were you homeless or living in a group home (including now)? No 02/27/2025 AUDIT-C Answer Date [...] on file Legal Sex Female 5:47 PM [employer] INTER[employer]IP Gender Identity Not on file Sexual Orientation Not on file documented as of this encounter Plan of Treatment Not on file documented as of this encounter Visit Diagnoses Not on filedocumented in this encounter Care Teams Housekeeper And Laundry Assistant Relationship Specialty Start Date End Date Fernanda Cooley MD [address] [facility] ([facility] Mailstop [phone] [place] [address] PCP - General Family Medicine 03/06/25 Macario Tinoco, PT Physical Therapist Physical Therapy 02/09/18 Jermaine Huertas, PT Physical Therapist Physical Therapy 02/21/18 Bria Bailey MD Referring Physician Obstetrics and Gynecology 03/31/18 Viktor Foley MD Surgeon General Surgery 08/30/18 Rochelle Givens, CARD WRITER HAND [address] [facility] ([facility] Mailstop [phone] [place] [address] SHOP Outpatient Nnps 02/26/25 documented as of this encounter
--- OUTSIDE RECORDS SUMMARY | 2025-08-28 13:52 | XMS_ITS | Encounter Summary ---
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
--- OUTSIDE RECORDS SUMMARY | 2025-08-28 13:52 | XMS_ITS | Patient Health Record ---
Author Organization [facility] mike Address [address] [facility] [address] [place] [address] Care Team Providers Care Pearl Hand Name Role Phone Addie INGRAM, Fernanda Primary Care Provider U Julita Moore Unavailable [phone] Julita Landa MD Unavailable Unavailable Suresh Garza Unavailable [phone] Allergies Allergen (clinical drug ingredient) Drug/Non Drug [...] Range Notes CBC w auto diff Reviewed date:01/09/2025 07:15:17 PM Interpretation: Performing Lab:[facility] , [facility] [address] Notes/Report: WBC 6.79 3.80-9.90 K/cumm Hgb 8.9 [...] Reviewed date:01/09/2025 07:15:17 PM Interpretation: Performing Lab:[facility] , [facility]5 [facility]. [place] [address] Notes/Report: Sodium 138 135-145 mmol/L Plasma Potassium [...] 03:47:51 PM Interpretation:Lab Result Generalized Performing Lab:[facility] , [address] [place] [address]. [place] [address] Notes/Report: WBC 6.76 3.80-9.90 K/cumm Hgb 11.1 [...] 03:47:51 PM Interpretation:Lab Result Generalized Performing Lab:[facility] , [address] [place] [address]. [facility] [address] Notes/Report: Sodium 139 135-145 mmol/L Plasma Potassium [...] 03:47:51 PM Interpretation:Lab Result Generalized Performing Lab:[facility] , [address] [place] [address]. [facility] [address] Notes/Report: Total Iron 46 35-145 mcg/dL Total Iron Bind Capacity 335 250-400 mcg/dL Transferrin Saturation 14 20-50 % CBC w auto diff Reviewed date:07/17/2025 07:33:53 PM Interpretation: Performing Lab:[facility] , [facility]5 [facility]. [place] [address] Notes/Report: WBC 7.55 3.80-9.90 K/cumm Hgb 12.4 11.9-15.5 g/dL Hct 40.2 35.6-45.5 % Platelet Ct 419 150-400 K/cumm MPV 10.2 9.1-12.3 fL RBC 4.38 3.90-5.20 M/cumm MCV 91.8 81.3-96.4 fL MCH 28.3 27.1-33.3 pg MCHC 30.8 32.3-35.7 g/dL RDW CV 14.5 11.1-14.9 % RDW SD 49.3 35.7-48.1 fL NRBC Abs Auto 0.00 0.00-0.01 K/cumm Comprehensive metabolic pane l (CMP) Reviewed date:07/17/2025 07:33:53 PM Interpretation: Performing Lab:[facility] , [address] [place] [address]. [place] [address] Notes/Report: Sodium 134 135-145 mmol/L Plasma Potassium 3.9 3.3-4.9 mmol/L Chloride 100 97-110 mmol/L Total CO2 23 22-32 mmol/L Anion Gap 11 2-15 mmol/L BUN 13 6-25 mg/dL Creatinine 0.67 0.60-1.10 mg/dL Glucose 69 70-199 mg/dL Interpretive Data Fasting glucose >/= [...] data was last revised 2022. Total Calcium 9.0 8.5-10.3 mg/dL Total Bilirubin 0.4 0.1-1.2 mg/dL Plasma Total Protein 7.9 6.5-8.5 g/dL Albumin 4.0 3.5-5.0 g/dL Alkaline Phosphatase 80 40-130 Units/L ALT 18 7-45 Units/L AST 22 10-45 Units/L Differential Automated Reviewed date:01/09/2025 07:15:17 PM Interpretation: Performing Lab:[facility] , [address] [facility]. [facility] [address] Notes/Report: Neut Abs 3.88 1.50-6.50 K/cumm ImmGran Abs 0.02 0.00-0.10 K/cumm Lymphocyte Abs 1.96 0.80-3.30 K/cumm Hardeman Abs 0.72 0.20-0.80 K/cumm Eos Abs 0.16 [...] Interpretive Data was last revised on 2017. Hardeman Pct 10.6 Interpretive Data Percent cell count [...] Reviewed date:01/09/2025 07:15:17 PM Interpretation: Performing Lab:[facility] , [address] [facility]. [place] [address] Notes/Report: eGFR >90 >=60 mL/min/1.73 m2 Interpretive [...] Reviewed date:03/22/2025 03:48:03 PM Interpretation: Performing Lab:[facility] , [address] [facility]. [place] [address] Notes/Report: Neut Abs 4.24 1.50-6.50 K/cumm ImmGran Abs 0.02 0.00-0.10 K/cumm Lymphocyte Abs 1.81 0.80-3.30 K/cumm Hardeman Abs 0.54 0.20-0.80 K/cumm Eos Abs 0.09 [...] Interpretive Data was last revised on 2017. Hardeman Pct 8.0 Interpretive Data Percent cell count [...] Reviewed date:03/22/2025 03:48:03 PM Interpretation: Performing Lab:[facility] , [address] [place] [address]. [place] [address] Notes/Report: eGFR >90 >=60 mL/min/1.73 m2 Interpretive [...] was last reviewed 2021. Differential Automated Reviewed date:07/17/2025 07:33:53 PM Interpretation: Performing Lab:[facility] , [facility]. [place] [address] Notes/Report: Neut Abs 4.32 1.50-6.50 K/cumm ImmGran Abs 0.03 0.00-0.10 K/cumm Lymphocyte Abs 2.31 0.80-3.30 K/cumm Hardeman Abs 0.65 0.20-0.80 K/cumm Eos Abs 0.18 0.00-0.50 K/cumm Baso Abs 0.06 0.00-0.10 K/cumm Neut Pct 57.2 Interpretive Data Percent cell count reference ranges are not reported, since discordance with absolute values may lead to misinterpretation of CBC data. Current Interpretive Data was last revised on 2017. ImmGran Pct 0.4 Interpretive Data Percent cell count reference ranges are not reported, since discordance with absolute values may lead to misinterpretation of CBC data. Current Interpretive Data was last revised on 2017. Lymph Pct 30.6 Interpretive Data Percent cell count reference ranges are not reported, since discordance with absolute values may lead to misinterpretation of CBC data. Current Interpretive Data was last revised on 2017. Hardeman Pct 8.6 Interpretive Data Percent cell count reference ranges [...] Interpretive Data was last revised on 2017. MR Pelvis (Bone) (Not yet re viewed by provider) Interpretation: Performing Lab: Notes/Report: Original Report EXAMINATION: MRI pelvis without contrast HISTORY: Back and hip pain. Clinical concern for sacroiliitis. FINDINGS: MRI of the pelvis is performed with a pelvic coil on a 1.5 Shannan magnet. Coronal and transverse T1 and T2 weighted images are obtained without contrast. There are no prior studies for comparison. Mixture of erythropoietic and fatty marrow is present throughout the imaged lower lumbar spine, pelvis, and imaged proximal femurs. No fracture, developing stress fracture, avascular necrosis, or aggressive osseous lesion. The alignment at the sacroiliac joints is normal. No osseous erosions, osteitis, ankylosis, synovitis, or findings specific for an inflammatory arthritis. The pubic symphysis is unremarkable. Joints, the alignment is normal. No hip joint effusion. No focal or high-grade chondral defect is identified. No subchondral cystic change or marrow edema. The sciatic nerves appear normal and symmetric. Pelvic muscle bulk and signal intensity are normal. The tendon origins and insertions are normal in appearance without tendinopathy or tendon tear. There is no bursitis. No soft tissue mass or localized abnormal fluid collection. 22 mm hemorrhagic left ovarian cyst. IMPRESSION: 1. No acute osseous injury of the pelvis. 2. No findings of an active inflammatory sacroiliitis or spondyloarthropathy. Read by: SUDARSHAN MUSTAFA M.D. Reviewed and Electronically Signed by: SUDARSHAN MUSTAFA M.D. eGFR Reviewed date:07/17/2025 07:33:53 PM Interpretation: Performing Lab:[facility] , [address] [place] [address]. [facility] [address] Notes/Report: eGFR >90 >=60 mL/min/1.73 m2 Interpretive [...] Reason For Referral Reason Simponi Aria [employer] Diagnosis 1 Rheumatoid arthritis without rheumatoid factor, multiple sites (M06.09) Referral Organization [facility] shawn Referring Provider First Name Julita Referring Provider Last Name Cordell Referring Provider Speciality Rheumatolo gy Referred Organization [facility] shawn Referred Provider Julita Landa Referred Address [address] [facility] [address],[place], [place],[address] Referred Provider Specialty Rheumatology Procedure 1 INJECTION GOLIMUMAB 1 MG FOR IV USE (J1602) Referral Priority Routine Medications Medication SIG (Take, Route, Frequency, Duration) Notes Start Date End Date Status Cyclobenzaprine HCl 10 MG 1/2 qam, 1 qhs Orally; Duration: 30 days Active Pregabalin 200 MG Take 1 capsule by mo uth twice daily Orally; Duration: 90 days 06/06/2025 Active Cymbalta 60 MG take 2 capsules (120 mg) by oral route once daily Oral 1; Duration: 30 days Active Jardiance 10 MG 1 tablet Orally Once a day Active Tikosyn 125 MCG 2 capsules Orally Tw ice a day; Duration: 30 day(s) Active Benadryl Allergy 25 MG one at bedtime Oral Active LORazepam 0.5 MG prn Oral Act aden Metoprolol Succinate 25 MG 1/2 capsule O rally Once a day; Duration: 30 day(s) Active Problems Problem Type SNOMED Code ICD Code Onset Dates Problem Status W/U Status Risk Notes Problem Rheumatoid arthritis (99179677) Rheumatoid arthritis without rheumatoid factor, multiple sites (M06.09) Active confirmed Problem Solitary sacroiliitis (276642026) Sacroiliitis, not elsewhere classified (M46.1) Active confirmed Problem Other specified inflammatory spondylopathies, 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) Active confirmed Problem Sacrococcygeal disorders, not elsewhere classified (M53.3) Active confirmed Problem Fibromyalgia (480762898) Fibromyalgia (M79.7) Active confirmed Problem Pain in coccyx (finding) (95885145) Coccyx pain (M53.3) Active confirmed Vital Signs Heart Rate 78 /min 07/24/2025 Temperature 98.0 degrees Fahrenheit 07/24/2025 Oximetry 99 % 07/24/2025 Height-cm 157.48 cm 07/24/2025 Blood pressure diastolic 80 mm Hg 07/24/2025 Weight-kg 101.61 kg 07/24/2025 Height 62 in 07/24/2025 Blood pressure systolic 100 mm Hg 07/24/2025 Weight 224 lbs 07/24/2025 BMI 40.97 kg/m2 07/24/2025 Encounters Encounter Location Date Provider Diagnosis [facility] [address] [place] [address] 09/19/2024 Julita Du Rheumatoid arthritis without rheumatoid factor, multiple sites M06.09 [facility] [address] [place] [address] 09/19/2024 Suresh Garza Sacrococcygeal disorders, not elsewhere classified M53.3 [facility] [address] [place] [address] 11/14/2024 Julita Du Rheumatoid arthritis without rheumatoid factor, multiple sites M06.09 [facility] [address] [place] [address] 11/14/2024 Julita Du Rheumatoid arthritis without rheumatoid factor, multiple sites M06.09 ; MUSA positive R76.8 ; Fibromyalgia M79.7 ; High risk medication use Z79.899 and Coccyx pain M53.3 [facility] [address] [place] [address] 01/09/2025 Julita Du Rheumatoid arthritis without rheumatoid factor, multiple sites M06.09 [facility] [address] [place] [address] 03/06/2025 Julita Du [facility] [address] [place] [address] 03/22/2025 Julita Du Rheumatoid arthritis without rheumatoid factor, multiple sites M06.09 [facility] [address] [place] [address] 03/22/2025 Julita Du Rheumatoid arthritis without rheumatoid factor, multiple sites M06.09 ; MUSA positive R76.8 ; Fibromyalgia M79.7 ; High risk medication use Z79.899 and Coccyx pain M53.3 [facility] [address] [place] [address] 05/21/2025 Julita Du [facility] [address] [place] [address] 05/22/2025 Julita Landa Rheumatoid arthritis without rheumatoid factor, multiple sites M06.09 [facility] [address] [place] [address] 07/06/2025 Julita Landa Rheumatoid arthritis without rheumatoid factor, multiple sites M06.09 ; MUSA positive R76.8 ; Fibromyalgia M79.7 ; High risk medication use Z79.899 ; Coccyx pain M53.3 and Lumbar back pain M54.50 [facility] [address] [place] [address] 07/17/2025 Julita Landa Rheumatoid arthritis without rheumatoid factor, multiple sites M06.09 [facility] [address] [place] [address] 07/24/2025 Suresh Garza Sacroiliitis, not elsewhere classified M46.1 [facility] [address] [place] [address] 09/11/2024 Jul[facility] [address] [place] [address] 09/27/2024 Julita [facility] [address] [place] [address] 10/30/2024 Jul[facility] [address] [place] [address] 11/13/2024 Jul[facility] [address] [place] [address] 01/09/2025 Julita Du [facility] [address] [place] [address] 03/08/2025 Julita Du [facility] [address] [place] [address] 03/09/2025 Julita [facility] [address] [place] [address] 03/22/2025 Julita Landa Rheumatoid arthritis without rheumatoid factor, multiple sites M06.09 [facility] [address] [place] [address] 05/21/2025 Julita [facility] [address] [place] [address] 05/22/2025 Julita Landa Assessments Encounter Date Diagnosis (ICD Code) Assessment Notes Treatment Notes Treatment Clinical Notes Section Notes 09/19/2024 Rheumatoid arthritis without rheumatoid factor, multiple [...] rheumatoid factor, multiple sites (ICD-10 - M06.09) 05/22/2025 Rheumatoid arthritis without rheumatoid factor, multiple sites (ICD-10 - M06.09) 07/06/2025 Rheumatoid arthritis without rheumatoid factor, multiple sites (ICD-10 - M06.09) acute back pain after lifting something heavy, order lumbar spine and sacral Xrays, start a medrol pack, continue lyrica, flexeril and cymbalta 07/06/2025 MUSA positive (ICD-10 - R76.8) acute back pain after lifting something heavy, order lumbar spine and sacral Xrays, start a medrol pack, continue lyrica, flexeril and cymbalta 07/17/2025 Rheumatoid arthritis without rheumatoid factor, multiple sites (ICD-10 - M06.09) 07/24/2025 Sacroiliitis, not elsewhere classified (ICD-10 - M46.1) 07/06/2025 Fibromyalgia (ICD-10 - M79.7) acute back pain after lifting something heavy, order lumbar spine and sacral Xrays, start a medrol pack, continue lyrica, flexeril and cymbalta 11/14/2024 MUSA positive (ICD-10 - R76.8) simponi aria infusion helping, will continue, increase flexeril to 5mg qam, 10mg qhs for back, continue lyrica and cymbalta 03/22/2025 MUSA positive (ICD-10 - R76.8) simponi aria infusion helping, will continue, increase flexeril to 5mg qam, 10mg qhs for muscle pain, continue lyrica and cymbalta, she wants iron checked, ordered 03/22/2025 Fibromyalgia (ICD-10 - M79.7) simponi aria infusion helping, will continue, increase flexeril to 5mg qam, 10mg qhs for muscle pain, continue lyrica and cymbalta, she wants iron checked, ordered 11/14/2024 Fibromyalgia (ICD-10 - M79.7) simponi aria infusion helping, will continue, increase flexeril to 5mg qam, 10mg qhs for back, continue lyrica and cymbalta 07/06/2025 High risk medication use (ICD-10 - Z79.899) acute back pain after lifting something heavy, order lumbar spine and sacral Xrays, start a medrol pack, continue lyrica, flexeril and cymbalta 07/06/2025 Coccyx pain (ICD-10 - M53.3) acute back pain after lifting something heavy, order lumbar spine and sacral Xrays, start a medrol pack, continue lyrica, flexeril and cymbalta 11/14/2024 High risk medication use (ICD-10 - Z79.899) simponi aria infusion helping, will continue, increase flexeril to 5mg qam, 10mg qhs for back, continue lyrica and cymbalta 03/22/2025 High risk medication use (ICD-10 - Z79.899) simponi aria infusion helping, will continue, increase flexeril to 5mg qam, 10mg qhs for muscle pain, continue lyrica and cymbalta, she wants iron checked, ordered 07/06/2025 Lumbar back pain (ICD-10 - M54.50) acute back pain after lifting something heavy, order lumbar spine and sacral Xrays, start a medrol pack, continue lyrica, flexeril and cymbalta 03/22/2025 Coccyx pain (ICD-10 - M53.3) simponi aria infusion helping, will continue, increase flexeril to 5mg qam, 10mg qhs for muscle pain, continue lyrica and cymbalta, she wants iron checked, ordered 11/14/2024 Coccyx pain (ICD-10 - M53.3) simponi aria infusion helping, will continue, increase flexeril to 5mg qam, 10mg qhs for back, continue lyrica and cymbalta Plan Of Treatment Pending Test Test Name Order Date X ray : Spines, lumbosacral 03/14/2024 X ray : SI joint, left 03/14/2024 X ray : SI joint, right 03/14/2024 X ray : Spines, lumbar complete 07/06/20 25 MRI : Pelvis without Contrast 07/24/2025 MR Pelvis (Bone) 08/25/2025 XR Sacrum & Coccyx 07/06/2025 MAJOR JOINT INJECTION W/ US 08/21/2024 Lumbo - Pelvic Bone/SPECT 06/29/2024 Next Appt Details Provider Name:Julita Landa, 09/11 09:00:00 AM, [email or web address], [place], [address], Provider Name:Benigno steward, 11/06/2025 09:00:00 AM, [email or web address], [place], [address], Insurance Providers Payer Name Payer Address Payer Phone Subscriber Number Group Number Insured Name Patient Relationship to Insured Coverage Start Date Coverage End Date [employer] - Choice/ OA [address] [place] [phone] [id number] Nyla Rivera Self - patient is the insured [employer] [address] [facility] [facility] [facility] [address] [place] [id number] Nyla Rivera Self - patient is the insured Medical (General) History Medical History History ICD Code Anxiety; Bacterial vaginosis; Brain injury; Depression; Fibromyalgia; Hypothyroidism; Migraine; Pulmonary hypertension; Sleep apnea; atrial fibrillation, cardiomyoapthy, LVE F 50% Surgical History Surgery Date(Month/Year) C section; 2019-01-02 Hernia Repair; 2019-01-02 cholecystectomy; 2019-01-02
--- OUTSIDE RECORDS SUMMARY | 2025-08-28 13:52 | XMS_ITS | Clinical Summary ---
Author Organization [facility] Address [address] [place] [id number] Care Team Providers Care Key Account Representative Name Role Phone Macario Tinoco PT Unavailable Unavailable Jermaine Huertas PT Unavailable Unavaila Bria Salamanca MD Unavailable [phone] Viktor Foley MD Unavailable [phone] Rochelle Givens [facility] Unavailable [phone] Fernanda Cooley MD Primary Care Provider Allergies Active Allergy Reactions Criticality Noted Date Comments Aspirin Rash,Shortness of breath High 10/08/2016 Azithromycin Anaphylaxis,Rash,Oth e r (See comments) High 03/10/2016 Throat swelling; epi given Pt.doesn't know Latex Anaphylaxis,Rash High 03/10/2016 Penicillin V Potassium Anaphylaxis High 05/20/2016 As a child Penicillins Anaphylaxis,Other (See comments) High 03/10/2016 As a child Pt.doesnt know Venom-Honey Bee Anaphylaxis High 01/02/2019 Zileuton Unknown 05/20/2016 Medications EPINEPHrine (EPIPEN) 0.15 mg/0.3 mL injection syringeIndications :Anaphylaxis Inject 0.3 mL (0.15 mg total) into the muscle as instructed as needed for anaphylaxis [address] (CYMBALTA) 60 mg capsuleIndications :Anxiety with Depression,Fibromy algia,pain Take 1 capsule (60 mg total) by mouth daily Active pregabalin (LYRICA) 200 mg capsuleIndications :Fibromyalgia,pain Take 1 capsule (200 mg total) by mouth 2 (two) times a day 019 Active etonogestreL (NEXPLANON) 68 mg implantIndications : Contraception 1 each (68 mg total) by subdermal route continuous 018 Active clonazePAM (KlonoPIN) 0.5 mg tablet Take 1 tablet (0.5 mg total) by mouth 3 (three) times a day as needed for anxiety 022 Active cyclobenzaprine (FLEXERIL) 10 mg tablet TAKE 1/2 (ONE-HALF) TABLET BY MOUTH IN THE MORNING THEN 1 EVERY DAY AT BEDTIME 025 Active traZODone (DESYREL) 50 mg tablet Take 1 tablet (50 mg total) by mouth nightly 025 Active cyanocobalamin (Vitamin B-12) 1,000 mcg/mL injection INJECT 1 ML (1,000 MCG) BY INTRAMUSCULAR INJECTION EVERY 2 WEEKS. 025 Active albuterol HFA (ProAir HFA) 90 mcg/actuation inhalerIndications :Mild intermittent asthma without complication Inhale 2 puffs every 4 (four) hours as needed for wheezing or shortness of breath 3 each 4 025 2025 Active sodium chloride 0.9% 0.9% parenteral solution 100 mL with golimumab 12.5 mg/mL solution Infuse IV once Activ e metoprolol XL (TOPROL-XL) 25 mg extended release tabletIndications: Essential hypertension,Dilat ed cardiomyopathy (HCC),SVT (supraventricular tachycardia),Parox ysmal atrial fibrillation (HCC) TAKE 1/2 OF A TABLET (12.5 MG TOTAL) BY MOUTH TWICE A DAY 90 tablet 1 025 Active empagliflozin (JARDIANCE) 10 mg tablet Take 1 tablet (10 mg total) by mouth daily 90 tablet 1 025 Active dofetilide (TIKOSYN) 125 mcg capsuleIndications :Paroxysmal Supraventricular Tachycardia Take 1 capsule (125 mcg total) by mouth 2 (two) times a day 180 capsule 1 025 Active linaCLOtide (Linzess) 145 mcg capsuleIndications :Slow transit constipation Take 1 capsule (145 mcg total) by mouth daily 90 capsule 1 025 Active tirzepatide (MOUNJARO) 5 mg/0.5 mL pen injector injectionIndicatio ns:Class 3 severe obesity due to excess calories without serious comorbidity with body mass index (BMI) of 40.0 to 44.9 in adult,Obstructive sleep apnea,Essential hypertension Inject 0.5 mL (5 mg total) under the skin every 7 days 2 mL Active dofetilide (TIKOSYN) 125 mcg capsuleIndications :Paroxysmal Supraventricular Tachycardia Take 1 capsule (125 mcg total) by mouth 2 (two) times a day (Please call [phone] to schedule follow up appointment for future refills) 60 capsule 025 2024 Discontinued linaCLOtide (Linzess) 72 mcg capsuleIndications :Slow transit constipation Take 1 capsule (72 mcg total) by mouth daily 90 capsule 1 025 2024 Discontinued( Alternate therapy) tirzepatide (MOUNJARO) 2.5 mg/0.5 mL pen injector injectionIndicatio ns:Class 3 severe obesity due to excess calories without serious comorbidity with body mass index (BMI) of 40.0 to 44.9 in adult Inject 0.5 mL (2.5 mg total) under the skin every 7 days 6 mL 025 2024 Discontinued( Alternate therapy) dofetilide (TIKOSYN) 125 mcg capsuleIndications :Paroxysmal Supraventricular Tachycardia Take 1 capsule (125 mcg total) by mouth 2 (two) times a day (Please call [phone] to schedule follow up appointment for future refills) 60 capsule 025 2024 Discontinued( Reorder) Active Problems Problem Noted Date Diagnosed Date Pain, dental 07/02/2025 Assessment & Plan (07/02/2025 8:07 PM CDT): Significant oral pain, likely due to an underlying infection, located under the tooth and possibly in the jaw. Differential includes TMJ disorder, but TMJ exercises have been ineffective. Allergic to penicillin and azithromycin, typically uses clindamycin for dental pain. - Prescribe metronidazole and levofloxacin for better coverage of oral bacteria. - Advise to see a dentist for evaluation and possible dental x-rays. Orders: clindamycin (CLEOCIN) 300 mg capsule; Take 1 capsule (300 mg total) by mouth 4 (four) times a day for 7 days Other specified inflammatory spondylopathies, lumbosacral region 05/30/2025 Assessment & Plan (08/02/2025 11:[address] [facility]OC[facility]): Chronic back pain with right hip radiation Chronic back pain with radiation to the right hip. Symptoms have improved but persist. MRI of the back is pending to evaluate for further degeneration or other issues. - Encouraged scheduling and completion of MRI of the back. Syncope 02/22/2025 Assessment & Plan (06/12/2025 10:57 PM CDT): Recurrent syncope and supraventricular tachycardia Recurrent syncope episodes with a history of SVT. Recent episodes brief, occurring while standing, unrelated to orthostatic changes. Previous telemetry showed short SVT, no AFib. - Follow up with cardiology on June 06. - Order EKG to evaluate current cardiac status. Assessment & Plan (02/25/2025 11:29 AM CDT): [...] years prior. She otherwise has a low [id number] score and has elected to discontinue eliquis [...] years prior. She otherwise has a low [id number] score and has elected to discontinue eliquis [...] years prior. She otherwise has a low [id number] score and has elected to discontinue eliquis [...] deficiency anemia, B12 deficiency Assessment & Plan (06/12/2025 10:57 PM CDT): Iron deficiency anemia and vitamin B12 deficiency Iron levels good, vitamin B12 very low. Currently receiving B12 injections. - Obtain recent lab results from [facility]. - Continue vitamin B12 injections. Orders: Reticulocyte Count; Future Assessment & Plan (02/25/2025 8:41 AM CDT): [...] regarding further iron supplementation; patient says her armored car driver has already put in a referral - Encouraged patient to follow up with her outpatient green end man for further evaluation; patient agreeable Assessment & [...] regarding further iron supplementation; patient says her armored car driver has already put in a referral - Encouraged patient to follow up with her outpatient green end man for further evaluation; patient agreeable Assessment & [...] regarding further iron supplementation; patient says her armored car driver has already put in a referral - Encouraged patient to follow up with her outpatient green end man for further evaluation; patient agreeable Assessment & [...] regarding further iron supplementation; patient says her armored car driver has already put in a referral - Encouraged patient to follow up with her outpatient green end man for further evaluation pending workup History of [...] hormonal control injections. No thromboembolic events since. Cardiomyopathy 08/31/2023 Assessment & Plan (08/23/2025 8:[address] [facility]OCATE): NICM Chronic systolic heart failure. Improved LV function on echo 52% 02/2025. NYHA class I findings, appears euvolemic on exam. Genetic testing sent previously. Ischemic eval negative in March 2023 with stable BNP less than 50. Continue losartan, and farxiga, metoprolol. Her BP previously would not allow for more GDMT. Talia in 1 year or sooner PRN. Assessment & Plan (08/01/2025 10:[address] [facility]): -Nonischemic cardiomyopathy, CMRI showed LVEF 40%, TTE February 2025 LVEF 52% -Continue GDMT per cardiology Assessment & Plan (07/02/2025 8:07 PM CDT): Chronic, well controlled Follows with cardiology Patient advised: You should continue to eat healthy (decrease sugary beverages, fried foods, processed foods, and fast food), exercise at least 30-45 minutes 5 days each week, drink lots of water, and eat plenty of fruits and vegetables to prevent onset or worsening of chronic diseases such as diabetes, high blood pressure, and high cholesterol. Continue current regimen: Metoprolol 12.5 mg BID Orders: metoprolol XL (TOPROL-XL) 25 mg extended release tablet; Take 0.5 tablets (12.5 mg total) by mouth 2 (two) times a day Assessment & Plan (06/11/2025 1:34 PM CDT): NICM Chronic systolic heart failure. Improved LV function on echo 52% 02/2025. NYHA class I findings, appears euvolemic on exam. Genetic testing sent previously. Ischemic eval negative in March 2023 with ongoing atypical chest pain. Continue losartan, and farxiga, metoprolol. Her BP previously would not allow for more GDMT. Will clarify that she is taking losartan, is not on her med list from her ROV. [place] in 3 months. Assessment & Plan (02/25/2025 8:41 AM CDT): [...] telemetry Assessment & Plan (10/15/2023 12:[address] [facility]): NICM oNewly Diagnosed noted on MRI EF [...] optimization. Assessment & Plan (08/31/2023 12:[address] [facility]): CMRI showed LVEF 40% Compensated on exam Continue GDMT per cardiology Resuming metoprolol today Hx of bariatric surgery 02/24/2022 Overview (02/24/2022): Added automatically from request for surgery [id number] Preoperative testing 12/12/2020 Rheumatoid arthritis without rheumatoid factor, multiple sites 08/23/2020 Assessment & Plan (07/02/2025 8:07 PM CDT): Chronic rheumatoid arthritis with current flare involving the right sacroiliac joint. Pain radiates down the hip and is exacerbated by movement. Current medications include Simponi IV infusion every three months. Pain persists despite current medication regimen. - Advise to contact armored car driver to discuss possible active flare and management options. - Consider prednisone or joint injections if recommended by armored car driver. Gastroesophageal reflux disease 08/23/2020 Assessment & Plan (08/02/2025 11:[address] [facility]): Gastroesophageal reflux disease (GERD) GERD with occasional flare-ups. Previously managed with omeprazole post-gastric bypass, but not currently on daily medication. Symptoms are managed with lifestyle modifications and occasional use of Tums. - Advised on avoiding known dietary triggers such as red foods. - Recommended occasional use of Tums for symptom relief. - Discussed option of restarting daily medication if symptoms worsen. Atrial fibrillation 08/23/2020 Assessment & Plan (06/11/2025 1:57 PM CDT): Documented, no longer on Eliquis 5 mg BID, (NICM, Female, prior DVT). Repeat MCT previously with out any Afib. Previously declined NOAC sighting heavy menstrual cycles. Assessment & Plan (11/27/2024 12:25 PM CDT): Documented history of with NICM pt would be a [id number] of 3-4, start Eliquis 5 mg BID, (NICM, Female, prior DVT). Repeat MCT. And follow up with EP, re rhythm control. Continue Tikosyn and metoprolol. EKG Today with PACs. Assessment & Plan (10/15/2023 12:[address] [facility]OC[facility]): Documented history of with NICM pt would be a [id number] of 2. Repeat 7 day Holter. She has reservation about resuming her BB as well, concerned with bradycardia. Assessment & Plan (08/31/2023 12:[address] [facility]): History of paroxysmal atrial fibrillation, now with increased palpitations Slow transit constipation 06/19/2019 Assessment & Plan (08/02/2025 11:[address] [facility]OCATE): Large amount of stool throughout the colon as noted on x-ray. Current treatment with Linzess is not effective. She is also taking stool softeners and a mild laxative. She is attempting to increase water intake and fiber consumption. - Increased Linzess dose to 145 mcg and sent prescription to pharmacy. - Encouraged continued hydration with at least 64 ounces of water per day. - Advised on increasing dietary fiber intake through fruits, vegetables, and Benefiber powder. Orders: linaCLOtide (Linzess) 145 mcg capsule; Take 1 capsule (145 mcg total) by mouth daily Assessment & Plan (06/12/2025 10:57 PM CDT): Chronic No relief in past with OTC stool softeners/laxatives Did well with Linzess - refilled Patient advised: Drink plenty of water (64 ounces/day), eat lots of fiber (at least 5 servings of fruits/vegetables per day), and exercise 30 minutes per day. Orders: linaCLOtide (Linzess) 72 mcg capsule; Take 1 capsule (72 mcg total) by mouth daily Assessment & Plan (07/24/2019 2:[address] [facility]): Taking Linzess 72mcg daily and doing well. [...] comorbidity with body mass index (BMI) of 40.0 to 44.9 in adult 06/19/2019 Assessment & Plan (08/02/2025 11:[address] [facility]OC[facility]): Recent weight increase. Currently on Mounjaro 2.5 mg with no significant weight loss. Previous use of Ozempic was effective until insurance coverage stopped. Insurance now covers Mounjaro for weight loss. - Increased Mounjaro dose to 5 mg and sent prescription to pharmacy. - Encouraged healthy eating and regular exercise to maximize medication efficacy. - Advised contacting weight management program at [facility] for further support. Orders: tirzepatide (MOUNJARO) 5 mg/0.5 mL pen injector injection; Inject 0.5 mL (5 mg total) under the skin every 7 days Assessment & Plan (07/02/2025 8:07 PM CDT): Weight gain of approximately 75 pounds since gastric bypass. Insurance does not cover Zepbound, but Mounjaro is covered and has been prescribed. Estimated cost is $200, reduced to $90 with a 90-day prescription. -BMI Follow-up includes: nutrition counseling, exercise counseling, and education provided. Assessment & Plan (06/12/2025 10:57 PM CDT): BMI Follow-up includes: nutrition counseling, exercise counseling, and education provided. Anemia 07/31/2018 Assessment & Plan (08/23/2025 8:[address] [facility]): CBC and iron profile today. Assessment & Plan (12/23/2023 9:38 AM CDT): Follows with an outpatient laborer laboratory for IV iron infusions but has not [...] 12:34 PM CDT): Follows with an outpatient laborer laboratory for IV iron infusions but has not been able to make it to those appointment for 4-5 months. -Hgb 9.3 on admission (pt reports it was 10.1 at OSH ED ~ 2wks ago) -iron 26, ferritin 7, TIBC and Tsat were hemolyzed - will repeat -consider IV iron infusion while inpatient SVT (supraventricular tachycardia) 04/27/2018 Assessment & Plan (08/23/2025 8:[address] [facility]): Improved on Dofetilide 125 mcg. Continue Metoprolol. Assessment & Plan (08/01/2025 10:[address] [facility]): -Atrial tachycardia and PACs -Continue dofetilide 125 mcg BID (intolerant to higher doses due to QT prolongation) -Renal function and QT interval normal, QTc 444 ms -EKG and BMP every 6 months for monitoring of side effects/toxicities of high risk medication Tikosyn (dofetilide) -Avoid QT prolonging medications -Resume metoprolol succinate 12.5 mg BID Assessment & Plan (07/02/2025 8:07 PM CDT): Chronic, well controlled Follows with cardiology Patient advised: You should continue to eat healthy (decrease sugary beverages, fried foods, processed foods, and fast food), exercise at least 30-45 minutes 5 days each week, drink lots of water, and eat plenty of fruits and vegetables to prevent onset or worsening of chronic diseases such as diabetes, high blood pressure, and high cholesterol. Continue current regimen: Metoprolol 12.5 mg BID Orders: metoprolol XL (TOPROL-XL) 25 mg extended release tablet; Take 0.5 tablets (12.5 mg total) by mouth 2 (two) times a day Assessment & Plan (06/11/2025 1:58 PM CDT): Improved on Dofetilide. Continue Metoprolol. Holter now with recurrent syncope. Encouraged EP follow up, seen in house by EP an attempted increase in Tikosyn as pt is very symptomatic with SVT- however she had prolonged QTC, therefore her dose was not increased. Assessment & Plan (06/12/2025 10:57 PM CDT): Recurrent syncope and supraventricular tachycardia Recurrent syncope episodes with a history of SVT. Recent episodes brief, occurring while standing, unrelated to orthostatic changes. Previous telemetry showed short SVT, no AFib. - Follow up with cardiology on June 06. - Order EKG to evaluate current cardiac status. Assessment & Plan (11/27/2024 12:25 PM CDT): [...] BID Assessment & Plan (10/15/2023 12:[address] [facility]): Syncope in the setting of SVT. Pending holter will attempt to resume BB. Assessment & Plan (08/31/2023 12:[address] [facility]): Frequent PACs and likely short runs of [...] in 4 weeks - I will arrange FHx: congenital heart disease 04/01/2018 Overview (04/01/2018): - no signs of disease in patient - no further work-up recommended - anatomic survey of fetus complete and cardiac anatomy normal - no further work-up recommended Anxiety 09/30/2017 Assessment & Plan (08/29/2018 7:[address] [facility]): Will treat as needed. History of deep [...] vaginal delivery, or 12 hrs if . History of traumatic brain injury 09/30/2017 Fibromyalgia 08/25/2017 Assessment & Plan (07/02/2025 8:07 PM CDT): Chronic fibromyalgia managed with Lyrica and cyclobenzaprine and duloxetine 60 mg/day. Current regimen includes Lyrica 200 mg twice daily and cyclobenzaprine 15 mg at night. 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 Family history of neurological conditions like MS. No MRI done yet. - Order MRI of the brain. - Refer to ophthalmology for evaluation of floaters. Depression 06/30/2016 Mild intermittent asthma without complication Assessment & Plan (06/12/2025 10:57 PM CDT): Asthma (childhood) Childhood asthma, currently asymptomatic. No inhaler for over 20 years. Advised to have an inhaler available due to potential triggers. Oxygen 100% on RA. Lungs CTAB - Prescribe inhaler and send to [facility] in [place]. Obstructive sleep apnea 06/30/2016 Assessment & Plan (08/02/2025 11:[address] [facility]): Orders: tirzepatide (MOUNJARO) 5 mg/0.5 mL pen injector injection; Inject 0.5 mL (5 mg total) under the skin every 7 days Assessment & Plan (06/12/2025 10:57 PM CDT): Obstructive sleep apnea, post-bariatric surgery Reportedly resolved post-bariatric surgery. Follow-up sleep study in 2021 showed some apnea episodes. No current treatment. - Obtain records of the follow-up sleep study from [facility]. Chronic pain 06/17/2016 Assessment & Plan (12/23/2023 9:23 AM CDT): Pt has RA and fibromyalgia -Continue home duloxetine 60mg daily and lyrica 200mg BID Assessment & Plan (12/22/2023 12:19 PM CDT): Pt has RA and fibromyalgia -continue home duloxetine 60mg daily and lyrica 200mg BID Moderate episode of recurrent major depressive d isorder 04/01/2016 Assessment & Plan (07/02/2025 8:07 PM CDT): Experiencing significant stress due to personal and family issues. No current suicidal ideation, but feeling overwhelmed. 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 Reports stress from family health issues and work responsibilities. - Encourage consideration of therapy despite previous experiences. - Offer support and availability for further assistance. Endometriosis 12/16/2015 Assessment & Plan (08/02/2025 11:[address] [facility]): Chronic Asymptomatic Patient follows with [facility] Last Pelvis 02/2025 - no mention of endometriosis Continue to monitor Chronic migraine without aur a without status migrainosus, not intractable 12/16/2015 Assessment & Plan (06/12/2025 10:57 PM CDT): Symptoms include facial twitching, headaches, balance issues, and floaters. Family history of neurological conditions like MS. No MRI done yet. - Order MRI of the brain. - Refer to ophthalmology for evaluation of floaters. PTSD (post-traumatic stress disorder) 12/16/2015 Assessment & Plan (08/02/2025 11:[address] [facility]OCATE): Experiencing significant stress due to personal and family issues. No current suicidal ideation, but feeling overwhelmed. 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 Reports stress from family health issues and work responsibilities. - Encourage consideration of therapy despite previous experiences. - Offer support and availability for further assistance. Supraventricular tachycardia , Paroxysmal atrial fibrillation Assessment & Plan (07/02/2025 8:07 PM CDT): Chronic, well controlled Follows with cardiology Patient advised: You should continue to eat healthy (decrease sugary beverages, fried foods, processed foods, and fast food), exercise at least 30-45 minutes 5 days each week, drink lots of water, and eat plenty of fruits and vegetables to prevent onset or worsening of chronic diseases such as diabetes, high blood pressure, and high cholesterol. Continue current regimen: Metoprolol 12.5 mg BID Orders: metoprolol XL (TOPROL-XL) 25 mg extended release tablet; Take 0.5 tablets (12.5 mg total) by mouth 2 (two) times a day Assessment & Plan (02/25/2025 11:29 AM CDT): [...] years prior. She otherwise has a low [id number] score and has elected to discontinue eliquis [...] years prior. She otherwise has a low [id number] score and has elected to discontinue eliquis [...] years prior. She otherwise has a low [id number] score and has elected to discontinue eliquis [...] restarting to outpatient Peripheral neuropathy Essential hypertension Assessment & Plan (08/02/2025 11:[address] [facility]): Orders: tirzepatide (MOUNJARO) 5 mg/0.5 mL pen injector injection; Inject 0.5 mL (5 mg total) under the skin every 7 days Assessment & Plan (07/02/2025 8:07 PM CDT): Chronic, well controlled Follows with cardiology Patient advised: You should continue to eat healthy (decrease sugary beverages, fried foods, processed foods, and fast food), exercise at least 30-45 minutes 5 days each week, drink lots of water, and eat plenty of fruits and vegetables to prevent onset or worsening of chronic diseases such as diabetes, high blood pressure, and high cholesterol. Continue current regimen: Metoprolol 12.5 mg BID Orders: metoprolol XL (TOPROL-XL) 25 mg extended release tablet; Take 0.5 tablets (12.5 mg total) by mouth 2 (two) times a day Resolved Problems Problem Noted Date Diagnosed Date Resolved Date Back pain 12/22/2023 05/30/2025 Assessment & Plan (12/23/2023 2:18 PM CDT): [...] measuring 3.2cm -Requested actual CD images from [facility] in [place], [place] for our radiology department review (they [...] PRN, heat packs Syncope and collapse 09/03/2023 025 Status post placement of imp lantable loop recorder 12/21/2022 08/31/2023 Overview (12/21/2022): Added automatically from request for surgery [id number] Weakness of both lower extremities 04/10/2022 05/30/2025 Vomiting and diarrhea 09/28/20202024 Bacterial vaginosis 10/03/2019 06/03/20 25 Abdominal pain 07/24/2019 05/30/2025 Overview (07/25/2019): Added automatically from request for surgery [id number] Assessment & Plan (08/31/2019 12:[address] ADVOCATE): CT with contrast, colonoscopy, and EGD all unremarkable. Mostly likely pain is neuropathic especially since she notices that when she takes additional dose of lyrica, she has improvement. Encouraged her to continue following closely with RA doctor regarding her lyrica prescription. She should follow up with GI prn. History of colitis 07/24/2019 5 Overview (07/25/2019): Added automatically from request for surgery [id number] Palpitations 05/30/2019 06/03/2025 Acute calculous cholecystitis 08/29/2018 05/30/2025 Assessment & Plan (08/29/2018 7:[address] AD[facility]OCATE): Status post laparoscopic cholecystectomy Continue postop management Optimize pain control History of asthma 08/29/2018 05/30/2025 Assessment & Plan (08/29/2018 7:[address] ADVOCATE): Adult bronchodilator therapy with nebulized treatments as indicated Incentive spirometry Vertigo 07/31/2018 05/30/2025 Syncope and collapse 04/27/2018 025 Assessment & Plan (02/07/2019 3:11 PM CDT): [...] Counseled patient on importance of med compliance. Induction of Labor 04/15/2018 8 Overview (04/16/2018): [...] (04/16/2018): Added automatically from request for surgery [id number] BMI 50.0-59.9, adult 04/01/2018 025 Overview (04/15/2018): - significant morbid obesity - compliant with ASA 81 mg - exertional dyspnea due to obesity & Hypoglycemia 04/01/2018 06/03/2025 Overview (04/01/2018): - patient reported history of diagnosis - checks BG at home, lowest is 62, nothing below 60 - discussed physiologically this is safe and therefore, we would not do anything different Maternal arrhythmia affectin g , antepartum, third trimester 12/06/2017 04/21/2018 Overview (04/01/2018): - Pt reports history of AF, echocardiogram with Dr. Cordova 10/14/17 was WNL. Current maternal condition a ffecting 11/22/2017 04/21/2018 Overview (04/01/2018): - Pt reports h/o pulmonary HTN, echocardiogram at [facility] in 10/14/17 was WNL. - h/o DVT in 2013, prophylactic lovenox at beginning of , will transition to heparin at this time per primary OB Supervision of high-risk 11/01/2017 04/21/2018 Overview (04/15/2018): [x] Co-management vs. [] Full [facility] Care; Referring Provider: Lynn [x] Dating Criteria: [...] [x] MOD: Vaginal [x] Place of delivery: [facility] [] MOC: [] Method of feeding: [] Senior Search Marketing Analyst: [] PP Depression Discussed 10/20/2017 04/27/2018 Overview (04/01/2018): - 04/01: Pt is 36 w 4/7 at this time. She has a h/o DVT in 2013. She is being transitioned from lovenox to heparin at this time per primary OB. - Recommendation IOL at 39 weeks with primary OB. If s/sx of distress prior to that time, consider delivery at [facility]. Pulmonary hypertension 10/06/201705/30 Overview (04/15/2018): History per pt. S/p cards consult with Dr. Felix. No evidence of pulmonary HTN on echo. - Echo: EF 60%, no signs of RV strain - no further work-up necessary or precautions Assessment & Plan (07/05/2018 10:48 AM CDT): No evidence of PAH on most recent TTE. Right sided abdominal pain 09/30/2017 0 05/30/2025 Assessment & Plan (07/24/2019 2:[address] ADVOCATE): Pt is still having constant dull ache in right mid to upper abdomen. On 05/14 she went to the [place] ER for this pain and had CT [...] a CT of abdomen done recently at [place] that per patient, didn't show anything. She is s/p cholecystectomy and appendectomy. Colonoscopy with Dr. Byers. Joint pain 08/25/2017 04/27/2018 SOB (shortness of breath) 10/12/2016 Gastroesophageal reflux dise ase without esophagitis 06/30/2016 04/27/2018 Morbid obesity 06/30/2016 08/02/2025 Primary pulmonary hypertension 06/30/2016 04/27/2018 Suicidal ideation 05/20/2016 06/03/2025 Chronic pelvic pain in female 03/10/2016 04/27/2018 Dyschezia 03/10/2016 04/27/2018 Dysmenorrhea 03/10/2016 04/27/2018 Dyspareunia, female 03/10/2016 04/27/20 18 Microscopic hematuria 03/10/20162017 Other microscopic hematuria 03/10/2016 04/27/2018 Pelvic and perineal pain 03/10/2016 Hypothyroidism 12/16/2015 05/30/2025 Overview (04/01/2018): - reports history of diagnosis previously - not being followed with serial labs, no medications currently - asymptomatic today Hay fever 12/16/2015 04/27/2018 Vitamin D deficiency 12/16/2015 018 Asthma 12/11/2009 04/27/2018 Wound infection 05/30/2025 Antibiotic enterocolitis Encounters Date Type Department Care Team Description 08/23/2025 8:[address] [facility] Office Visit [facility] Medicine Cardiology [address] [facility] 8th [place] [address] [place] [address] Talia Mcmanus NP Shortness of breath (Primary Dx); SVT (supraventricular tachycardia); Iron deficiency anemia due to chronic blood loss; Dilated cardiomyopathy (HCC) 08/22/2025 2:[address] [facility] Lab [facility] [address] [facility] [place] [address] Shortness of breath; Symptom of leg swelling 08/22/2025 Orders Only [facility] at [address] [phone] Fernanda Cooley MD Need for hepatitis B screening test; Balance disorder; Iron deficiency anemia, unspecified iron deficiency anemia type 08/22/2025 Telephone [facility] at [address] [address] Fernanda Cooley MD Medical Question/Miscellaneou s 08/22/2025 Telephone [facility] [address] [phone] Fernanda Cooley MD 08/02/2025 4:[address] [facility] Telemedicine [facility] at [address] [phone] Fernanda Cooley MD Endometriosis (Primary Dx); Gastroesophageal reflux disease, unspecified whether esophagitis present; PTSD (post-traumatic stress disorder); Slow transit constipation; Class 3 severe obesity due to excess calories without serious comorbidity with body mass index (BMI) of 40.0 to 44.9 in adult; Obstructive sleep apnea; Essential hypertension; Other specified inflammatory spondylopathies, lumbosacral region 08/01/2025 9:[address] [facility] Office Visit [facility] Medicine Cardiology [address] [facility] 8th [place] [address] [place] [address] Rochelle Nelson NP SVT (supraventricular tachycardia) (Primary Dx); Dilated cardiomyopathy (HCC) 08/01/2025 Results Follow-Up [facility] Medicine Cardiology [address] [facility] 8th [place] [address] [place] [address] Rochelle Nelson NP ECG 12 lead 07/17/2025 1:[address] [facility] - 07/17/2025 11:[address] [facility] Hospital Encounter [facility] [address] [place] [address] Discharge Disposition: Discharge to home or self care 07/17/2025 9:[address] [facility] - 07/17/2025 11:[address] [facility] Hospital Encounter [facility] - Imaging [address] [facility] [address], [place] [phone] Sacrococcygeal disorders, not elsewhere classified Discharge Disposition: Discharge to home or self care 07/16/2025 Telephone [facility] at [address] [phone] Fernanda Cooley MD Appointment 07/13/2025 Results Follow-Up [facility] Medicine Cardiology [address] [facility] [address] [place] [address] Talia Mcmanus NP [facility] Mobile Cardiac Telemetry Event Monitor 07/02/2025 4:45 PM CDT Telemedicine [facility] at [address] [phone] Fernanda Cooley MD Rheumatoid arthritis without rheumatoid factor, multiple sites (HCC) (Primary Dx); Moderate episode of recurrent major depressive disorder (HCC); Class 3 severe obesity due to excess calories without serious comorbidity with body mass index (BMI) of 40.0 to 44.9 in adult; Essential hypertension; Dilated cardiomyopathy (HCC); SVT (supraventricular tachycardia); Supraventricular tachycardia, Paroxysmal atrial fibrillation; Pain, dental; Fibromyalgia 06/28/2025 Telephone [facility] Cardiology [address] [facility] [address] [place] [address] Talia Mcmanus NP 06/09/2025 Orders Only [facility] at [address] [place] [address] Fernanda Cooley MD Mild intermittent asthma without complication (Primary Dx) 06/06/2025 4:00 PM CDT Ancillary Procedure [facility] Cardiology [facility] [facility] 8th [place] [address] [place] [address] Syncope, unspecified syncope type 06/06/2025 3:30 PM CDT Office Visit [facility] Cardiology [facility] [facility] 8th [place] [address] [place] [address] Talia Mcmanus NP Syncope, unspecified syncope type (Primary Dx); SVT (supraventricular tachycardia); Dilated cardiomyopathy (HCC) 06/01/2025 Telephone [facility] at [address] [place] [phone] Fernanda Cooley MD Med Refill 05/30/2025 7:30 AM CDT Office Visit [facility] at [address] [place] [address] Fernanda Cooley MD Slow transit constipation (Primary Dx); Need for hepatitis B screening test; Balance disorder; Iron deficiency anemia, unspecified iron deficiency anemia type; SVT (supraventricular tachycardia); Chronic migraine without aura without status migrainosus, not intractable; 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; Obstructive sleep apnea; Mild intermittent asthma without complication; Syncope, unspecified syncope type; Class 3 severe obesity due to excess calories without serious comorbidity with body mass index (BMI) of 40.0 to 44.9 in adult from Last 3 Months Immunizations Immunization Administration Dates Next Due Influenza, Unspecified 05/30/2025(Deferr ed: Patient Refused),06/13/2024(Deferred: Patient Refused) MMR 04/20/2018(Deferred: No longer n eeded) Tdap 02/01/2018 Surgical History Surgery Date Site/Laterality Comments APPENDECTOMY 11/12/2017 HERNIA REPAIR COLPOSCOPY SECTION 09/13/2017 - 09/12/2018 COLONOSCOPY CHOLECYSTECTOMY ENDOMETRIAL ABLATION GASTRIC BYPASS 12/12/2020 - 01/10/2021 BARIATRIC SURGERY HEMA-EN-Y PROCEDURE Medical History Medical History Date Comments Pulmonary hypertension (HCC) Pulmonary embolism 2013 TBI (traumatic brain injury) (HCC) Abnormal Pap smear of cervix Endometriosis Migraine s/p botox inj. Depression GERD (gastroesophageal reflux disease) Atrial fibrillation (HCC) Pt. bunch s ILR Asthma RA (rheumatoid arthritis) Deep vein thrombosis (HCC) Fibromyalgia, primary Genetic disorder Peripheral neuropathy Pelvic floor dysfunction Sleep apnea does not wear c pap Hypothyroidism 12/16/2015 - reports histor y of diagnosis previously - not being followed with serial labs, no medications currently - asymptomatic today Anemia Obesity Morbid obesity (HCC) Menstrual problem Irritable bowel syndrome Low back pain Joint pain Anxiety Autoimmune disease Brain concussion Bacterial vaginosis 10/03/2019 Family History Medical History Relation Name Comments Arthritis Maternal Grandmother Oceaner COPD Maternal Grandmother Oceaner Cancer Maternal Grandmother Oceaner Diabetes Maternal Grandmother Oceaner Heart attack Maternal Grandmother Oceaner Heart failure Maternal Grandmother Oceaner Kidney disease Maternal Grandmother Oceaner Obesity Maternal Grandmother Oceaner Sleep apnea Maternal Grandmother Oceaner Stroke Maternal Grandmother Oceaner Arthritis Mother [place] Kidney disease Mother [place] Obesity Mother [place] Sleep apnea Mother [place] Heart attack Mother's Brother Gui Cancer Mother's Sister Shira Diabetes Other Hypertension Other Migraines Other Stroke Other Diabetes Sister 1 Britany Heart attack Sister 1 Britany Heart disease Sister 1 Britany Heart failure Sister 1 Brit[place] COPD Sister 2 [place] Heart attack Sister 2 [place] Stroke Sister 2 [place] Mental illness Sister 3 Oceaner B Anesthesia problems Neg Hx Relation Name Status Comments Father Alive Maternal Grandmother Oceaner Mother [place] Alive Mother's Brother Gui Alive Mother's Sister Shira Alive Other Sister 1 Britany Sister 2 [place] Alive Sister 3 Oceaner B Alive Social History Tobacco Use Types Packs/Day Years Used Date Smoking Tobacco: Never Smokeless Tobacco: Never Tobacco Cessation:Counseling Given: Not Answered Alcohol Use Standard Drinks/Week Comments Not Currently 0 (1 standard drink = 0.6 oz pur e alcohol) rarely [facility] Utilities Answer Date Recorded In the past 12 months has th e electric, gas, oil, or water company threatened [...] week 02/27/2025 How often do you attend anglican or baptist serv ices? Never 02/27/2025 Do you belong to any clubs o r organizations such as anglican groups, unions, fraternal or athletic groups, or [...] money to buy more. Never true 02/28/20 Within the past 12 months, t he [...] any time in the past 12 m [facility], were you homeless or living in a retirement (including now)? No 02/27/2025 AUDIT-C Answer Date [...] on file Legal Sex Female 5:[address] [facility] Gender Identity Not on file Sexual Orientation [...] MTSEK A,GIR LCONS Sunita Tarango MD Delivery Location:[facility]LD) Comments Decreased FM earlier in preg avi (having NST's twice a week because of previous issue) Maternal Hx of Afib (SOB at times) Last Filed Vital Signs Vital Sign Reading Time Taken Comments Blood Pressure 123/71 08/23/2025 8:[address] [facility] Pulse 84 08/23/2025 8:[address] [facility] Temperature 36.6 C (97.9 F) 02/25/2025 8:00 AM CDT Respiratory Rate 18 02/25/2025 8:00 AM CDT Oxygen Saturation 100% 08/23/2025 8:[address] [facility] Inhaled Oxygen Concentration - - Weight 102.2 kg (225 lb 6.4 oz) 08/23/2025 8:[address] [facility] Height 157.5 cm (5' 2.01) 08/23/2025 8:33 AM CS T Body Mass Index 41.21 08/23/2025 8:[address] [facility] Plan of Treatment Health Maintenance Due Date Last Done Comments Cervical Cancer Screening 1987 Varicella Vaccines (1 of 2 - 13+ 2-dose series) 2000 Hepatitis B Screening 2005 Regular Well Visit/Exam 18-64 2005 Pneumococcal vaccine <65 (1 of 2 - PCV) 2006 HPV Vaccines (1 - 3-dose SCDM series) 2014 Influenza Vaccine (#1) 2025 Depression Screening 07/02/2026 07/02/2025, 02/22/20 25 DTaP/Tdap/Td Vaccine (2 - Td or Tdap) 02/02/2028 Hepatitis C Screening Completed 08/11/2017, 017 Medical Devices Explanted Type Area Tank Systems Maintainer Device Identifier Shelf Expiration Date Model / Serial / Lot Medtronic Cardiac Rhythm Mgmt Linqsys Reveal Linq Mycarelink Insertable Loop Recorder Automatic - [id number] - [id number] Implanted:Qty : 1 on 05/04/2019 by Elder John MD at [facility] Explanted:Qty : 1 on 12/28/2022 Implantable Loop Recorder N/A: Chest Med[employer] Inc 02/25/2020 LINQSYS / [id number] / D Procedures Procedure Name Priority Date/Time Associated Diagnosis Comments EGFR Routine 08/22/2025 2:[address] [facility] Shortness of breath Symptom of leg swelling BASIC METABOLIC PANEL Routine 08/22/2025 2:[address] [facility] Shortness of breath Symptom of leg swelling PRO B-TYPE NATRIURETIC PEPTIDE Routine 08/22/2025 2:[address] [facility] Shortness of breath Symptom of leg swelling ECG 12-LEAD Routine 08/01/2025 9:[address] [facility] SVT (supraventricular tachycardia) EGFR Routine 07/17/2025 1:[address] [facility] DIFFERENTIAL AUTO Routine 07/17/2025 1:[address] [facility] COMPREHENSIVE METABOLIC PANEL Routine 07/17/2025 1:[address] [facility] CBC WITH AUTO DIFFERENTIAL Routine 07/17/2025 1:[address] [facility] XR SPINE LUMBAR ROUTINE Schedule Routine, Read Routine (OP Routine) 07/17/2025 10:[address] [facility] Sacrococcygeal disorders, not elsewhere classified XR SACRUM COCCYX 2 OR MORE VIEWS Schedule Routine, Read Routine (OP Routine) 07/17/2025 10:[address] [facility] Sacrococcygeal disorders, not elsewhere classified MCT - MOBILE CARDIAC TELEMETRY EVENT MONITOR Routine 06/06/2025 4:19 PM CDT Syncope, unspecified syncope type HEPATITIS C ANTIBODY Routine 08/11/2017 4:[address] [facility] Arthralgia, unspecified joint from Last 3 Months or Most Recently Relevant to Health Maintenance Results * eGFR (08/22/2025 2:[address] [facility]ATE) eGFR 85 >=60 mL/min/1. 73 m2 Comment: Interpretive Data [...] interpretive data was last reviewed 2021. Blood 08/22/2025 2:[address] [facility]ATE 08/22/2025 3:[address] [facility]OCATE us Talia Mcmanus NP LAB BLOOD ORDERABLES Final Result [facility] Department [place] [address] * Pro B-type natriuretic peptide (08/22/2025 2:[address] [facility]ATE) NT-proBNP <50 <=300 pg/mL Comment: Interpretive Comments: A. Dyspnea in Acute Care Setting All Ages: < 300 pg/ml, acute heart failure unlikely. < 50 yrs: 300 - 450 pg/ml, further investigation warranted. > 450 pg/ml, acute heart failure likely. 50 - 74 yrs: 300 - 900 pg/ml, further investigation warranted. > 900 pg/ml, acute heart failure likely . > or = 75 yrs: 450 - 1800 pg/ml, further investigation warranted. > 1800 pg/ml, acute heart failure likely. B. Non-acute Setting < 75 yrs < 125 pg/ml, rules out heart failure. > or = 125 pg/ml, further investigation warranted. > or = 75 yrs < 450 pg/ml, rules out heart failure. > or = 450 pg/ml, further investigation warranted. - Knowledge of each individual patient's NT-proBNP range may be more useful than using similar cut-points for every patient. Please note that marked elevations in NT-proBNP levels may be observed in state other than Left Ventricular Congestive Failure, including: acute coronary syndromes, right heart strain/failure (including pulmonary embolism and cor pulmonale), critical illness, renal failure, as well as advanced age. - References: 1. Vincent LUCIO et.al. Eur Heart J. 2006:27:330-337. 2. Ursula RW, Roc HUGHES. J. AM Rogelio Cardiol: Cardiovasc Imag. 2009;2: 216- 225. Interpretive Data Last Revised Date: 2018. Blood 08/22/2025 2:[address] [facility]OCATE 08/22/2025 3:[address] AD[facility]OCATE us Talia Tamera Mcmanus MULTIMEDIA ARTIST LAB BLOOD ORDERABLES Final Result Performing Organization Address City/[facility]/ZIP Co de Phone Number [facility] Department [place] [address] * (ABNORMAL) Basic metabolic panel (08/22/2025 2:[address] [facility]ATE) Sodium 140 135 - 145 mmol/L Potassium, pl 4.2 3.3 - 4.9 mmol/L [facility] Chloride 106 97 - 110 mmol/L [facility] CO2 21(L) 22 - 32 mmol/L [facility] Anion gap 13 2 - 15 mmol/L [facility] BUN 13 6 - 25 mg/dL [facility] Creatinine 0.89 0.60 - 1.10 mg/dL [facility] Glucose 63(L) 70 - 199 mg/dL [facility] Comment: Interpretive Data Fasting glucose >/= [...] interpretive data was last revised 2022. Calcium 8.1(L) 8.5 - 10.3 mg/dL [facility] Blood 08/22/2025 2:[address] [facility]ATE 08/22/2025 3:[address] [facility]ATE Talia Mcmanus MULTIMEDIA ARTIST LAB BLOOD ORDERABLES Final Result Performing Organization Address [facility] Co de Phone Number [facility] Department [place] [address] * ECG 12 lead (08/01/2025 9:[address] [facility]OCATE) Rochelle Nelson MULTIMEDIA ARTIST ECG ORDERABLES Edited Re sult - Final * eGFR (07/17/2025 1:[address] AD[facility]OCATE) [facility] eGFR >90 >=60 mL/min/1. 73 m2 Comment: [...] interpretive data was last reviewed 2021. Blood 07/17/2025 1:[address] [facility]OCATE 07/17/2025 3:[address] ADVOCATE us Julita Landa MD LAB BLOOD ORDERABLES Final Resul t [facility] [address] Department [place] [address] * Differential, auto (07/17/2025 1:[address] ADVOCATE) [facility] Neutrophil abs 4.32 1.50 - 6.50 K/cumm Imm gran abs 0.03 0.00 - 0.10 K/cumm [facility] Lymphocyte abs 2.31 0.80 - 3.30 K/cumm [facility] Monocyte abs 0.65 0.20 - 0.80 K/cumm [facility] Eosinophil abs 0.18 0.00 - 0.50 K/cumm [facility] Basophil abs 0.06 0.00 - 0.10 K/cumm [facility] Neutrophil pct 57.2 % [facility] Comment: Interpretive Data Percent cell count reference ranges are not reported, since discordance with absolute values may lead to misinterpretation of CBC data. Current Interpretive Data was last revised on 2017. Imm gran pct 0.4 % [facility] Comment: Interpretive Data Percent cell count reference ranges are not reported, since discordance with absolute values may lead to misinterpretation of CBC data. Current Interpretive Data was last revised on 2017. Lymphocyte pct 30.6 % [facility] Comment: Interpretive Data Percent cell count reference ranges are not reported, since discordance with absolute values may lead to misinterpretation of CBC data. Current Interpretive Data was last revised on 2017. Monocyte pct 8.6 % [facility] Comment: Interpretive Data Percent cell count reference ranges are not reported, since discordance with absolute values may lead to misinterpretation of CBC data. Current Interpretive Data was last revised on 2017. Eosinophil pct 2.4 % [facility] Comment: Interpretive Data Percent cell count reference ranges are not reported, since discordance with absolute values may lead to misinterpretation of CBC data. Current Interpretive Data was last revised on 2017. Basophil pct 0.8 % [facility] Comment: Interpretive Data Percent cell count reference ranges are not reported, since discordance with absolute values may lead to misinterpretation of CBC data. Current Interpretive Data was last revised on 2017. Blood 07/17/2025 1:[address] [facility]ATE 07/17/2025 1:[address] [facility]OCATE us Julita Landa MD LAB BLOOD ORDERABLES Final Resul t [facility] [address] Department [place] [address] * (ABNORMAL) CBC with auto differential (07/17/2025 1:[address] [facility]OCATE) WBC 7.55 3.80 - 9.90 K/cumm Hgb 12.4 11.9 - 15.5 g/dL [facility] Hct 40.2 35.6 - 45.5 % [facility] Plt 419(H) 150 - 400 K/cumm [facility] MPV 10.2 9.1 - 12.3 fL [facility] RBC 4.38 3.90 - 5.20 M/cumm [facility] MCV 91.8 81.3 - 96.4 fL [facility] MCH 28.3 27.1 - 33.3 pg [facility] MCHC 30.8(L) 32.3 - 35.7 g/dL [facility] RDW CV 14.5 11.1 - 14.9 % [facility] RDW SD 49.3(H) 35.7 - 48.1 fL [facility] NRBC abs 0.00 0.00 - 0.01 K/cumm [facility] Blood 07/17/2025 1:[address] [facility]ATE 07/17/2025 1:[address] [facility]OCATE us Julita Landa MD LAB BLOOD ORDERABLES Final Resul t [facility] [address] Department [place] [address] * (ABNORMAL) Comprehensive metabolic panel (07/17/2025 1:[address] [facility]ATE) Sodium 134(L) 135 - 145 mmol/L Potassium, pl 3.9 3.3 - 4.9 mmol/L [facility] Chloride 100 97 - 110 mmol/L [facility] CO2 23 22 - 32 mmol/L [facility] Anion gap 11 2 - 15 mmol/L [facility] BUN 13 6 - 25 mg/dL [facility] Creatinine 0.67 0.60 - 1.10 mg/dL [facility] Glucose 69(L) 70 - 199 mg/dL [facility] Comment: Interpretive Data Fasting glucose >/= [...] interpretive data was last revised 2022. Calcium 9.0 8.5 - 10.3 mg/dL [facility] Bilirubin, total 0.4 0.1 - 1.2 mg/dL [facility] Protein, pl 7.9 6.5 - 8.5 g/dL [facility] Albumin 4.0 3.5 - 5.0 g/dL [facility] Alk phos 80 40 - 130 Units/L [facility] ALT 18 7 - 45 Units/L [facility] AST 22 10 - 45 Units/L [facility] Blood 07/17/2025 1:[address] [facility]OCATE 07/17/2025 1:[address] [facility]OCATE us Julita Landa MD LAB BLOOD ORDERABLES Final Resul t [facility] [address] Department [place] [address] * XR Spine Lumbar 4 or More Views (07/17/2025 10:[address] [facility]ATE) Anatomical Region Laterality Modality L-spine N/A Digital Radiogra phy 07/17/2025 10:[address] [facility] Impressions 07/17/2025 10:[address] [facility] 1. Mild degenerative changes at L5-S1 and of the sacroiliac joints. Electronically signed by: Dc Jj M.D. Narrative 07/17/2025 10:[address] [facility] EXAM: XR SPINE LUMBAR 4 OR MORE VIEWS, XR SACRUM COCCYX 2 OR MORE VIEWS HISTORY: Pain with sacrococcygeal disorder not otherwise classified. COMPARISON: Lumbar spine radiograph 05/03/2023 FINDINGS: Unchanged straightening of the lumbar lordosis with trace retrolisthesis of L5 on S1. Normal vertebral body height. No acute fracture. Disc heights are normal. Mild facet arthropathy at L5-S1. The pelvis is intact with no concerning lesion. Mild sacroiliac joint degenerative changes bilaterally. Hip joints are normal. Early pubic symphysis degenerative changes. Right upper quadrant cholecystectomy clips. Large amount of stool throughout the colon. Procedure Note Dc Jj MD - 07/17/2025 EXAM: XR SPINE LUMBAR 4 OR MORE VIEWS, XR SACRUM COCCYX 2 OR MORE VIEWS HISTORY: Pain with sacrococcygeal disorder not otherwise classified. COMPARISON: Lumbar spine radiograph 05/03/2023 FINDINGS: Unchanged straightening of the lumbar lordosis with trace retrolisthesis of L5 on S1. Normal vertebral body height. No acute fracture. Disc heights are normal. Mild facet arthropathy at L5-S1. The pelvis is intact with no concerning lesion. Mild sacroiliac joint degenerative changes bilaterally. Hip joints are normal. Early pubic symphysis degenerative changes. Right upper quadrant cholecystectomy clips. Large amount of stool throughout the colon. IMPRESSION: 1. Mild degenerative changes at L5-S1 and of the sacroiliac joints. Electronically signed by: Dc Jj M.D. Julita Landa MD IMG XR PROCEDURES Final Result * XR Sacrum Coccyx 2 or More Views (07/17/2025 10:[address] [facility]) Anatomical Region Laterality Modality Pelvis, Body N/A Digital Radiogra phy 07/17/2025 10:[address] [facility] Impressions 07/17/2025 10:[address] [facility] 1. Mild degenerative changes at L5-S1 and of the sacroiliac joints. Electronically signed by: Dc Jj M.D. Narrative 07/17/2025 10:[address] [facility] EXAM: XR SPINE LUMBAR 4 OR MORE VIEWS, XR SACRUM COCCYX 2 OR MORE VIEWS HISTORY: Pain with sacrococcygeal disorder not otherwise classified. COMPARISON: Lumbar spine radiograph 05/03/2023 FINDINGS: Unchanged straightening of the lumbar lordosis with trace retrolisthesis of L5 on S1. Normal vertebral body height. No acute fracture. Disc heights are normal. Mild facet arthropathy at L5-S1. The pelvis is intact with no concerning lesion. Mild sacroiliac joint degenerative changes bilaterally. Hip joints are normal. Early pubic symphysis degenerative changes. Right upper quadrant cholecystectomy clips. Large amount of stool throughout the colon. Procedure Note Dc Jj MD - 07/17/2025 EXAM: XR SPINE LUMBAR 4 OR MORE VIEWS, XR SACRUM COCCYX 2 OR MORE VIEWS HISTORY: Pain with sacrococcygeal disorder not otherwise classified. COMPARISON: Lumbar spine radiograph 05/03/2023 FINDINGS: Unchanged straightening of the lumbar lordosis with trace retrolisthesis of L5 on S1. Normal vertebral body height. No acute fracture. Disc heights are normal. Mild facet arthropathy at L5-S1. The pelvis is intact with no concerning lesion. Mild sacroiliac joint degenerative changes bilaterally. Hip joints are normal. Early pubic symphysis degenerative changes. Right upper quadrant cholecystectomy clips. Large amount of stool throughout the colon. IMPRESSION: 1. Mild degenerative changes at L5-S1 and of the sacroiliac joints. Electronically signed by: Dc Jj M.D. us Julita Landa MD IMG XR PROCEDURES Final Result * [facility] Mobile Cardiac Telemetry Event Monitor (06/06/2025 4:19 PM CDT) Anatomical Region Laterality Modality Electrocardiogra phy 06/06/2025 4:21 PM CDT Narrative 07/13/2025 2:51 PM CDT [facility] [place] [address] CARDIAC EVENT MONITOR REPORT Patient Name: ZEE BIRCH C : 1985 (40y ) Sex: F Study Date: 06/06/2025 04:21:21 PM Ht(Inch): Wt(Lb): BSA: Tech: [facility] Order Provider: TALIA MCMANUS BMI: Ref Provider: TALIA MCMANUS PROCEDURES: Event Report: [employer] MOBILE CARDIAC TELEMETRY EVENT MONITOR [[id number]]. Enrollment Period: 2025-06-12 00:00:00 through 2025-07-11 00:00:00. Location: [facility]. INDICATIONS: R55 Syncope and collapse. FINDINGS: Event Data: Min Rate: 71 BPM Min Rate Timestamp: 2025-06-20 23:29:00 Max Rate: 154 BPM Max Rate Timestamp: 2025-07-01 11:48:00 Mean Rate: 100 BPM SIGNIFICANT PAUSES: 0 >3 sec SUMMARY: The patient's monitoring period was 06/12/2025 - 07/11/2025. Baseline sample showed Sinus Rhythm w/Couplet PACs/PACs with a heart rate of 94.9 bpm. There were 0 critical, 0 serious, and 9 stable events that occurred. All manually detected vents were in sinus rhythm. CONCLUSIONS: 1. The patient's monitoring period was 06/12/2025 - 07/11/2025. Baseline sample showed Sinus Rhythm w/Couplet PACs/PACs with a heart rate of 94.9 bpm. There were 0 critical, 0 serious, and 9 stable events that occurred. All manually detected vents were in sinus rhythm. 2. I have reviewed the PDF and all the ECG strips. I agree with the interpretations as detailed in the report. 3. The PDF can be found in the [facility] Patient chart. Please go to the Cardiology tab, click on the holter or event exam. Scroll to bottom where the ORDER-LEVEL Documents reside and click the blue link to the pdf. Electronically Signed By: Nino Anderson Jr., M.D. 07/13/2025 2:50:49 PM CDT Procedure Note Nino Andreson MD PhD - 07/13/2025 [facility] [place] [address] CARDIAC EVENT MONITOR REPORT Patient Name: ZEE BIRCH C : 1985 (40y ) Sex: F Study Date: 06/06/2025 04:21:21 PM Ht(Inch): Wt(Lb): BSA: Tech: [facility] Order Provider: TALIA MCMANUS BMI: Ref Provider: TALIA MCMANUS PROCEDURES: Event Report: [facility] MOBILE CARDIAC TELEMETRY EVENT MONITOR [[id number]]. Enrollment Period: 2025-06-12 00:00:00 through 2025-07-11 00:00:00. Location: [facility]. INDICATIONS: R55 Syncope and collapse. FINDINGS: Event Data: Min Rate: 71 BPM Min Rate Timestamp: 2025-06-20 23:29:00 Max Rate: 154 BPM Max Rate Timestamp: 2025-07-01 11:48:00 Mean Rate: 100 BPM SIGNIFICANT PAUSES: 0 >3 sec SUMMARY: The patient's monitoring period was 06/12/2025 - 07/11/2025.Baseline sample showed Sinus Rhythm w/Couplet PACs/PACs with a heart rate of 94.9 bpm.There were 0 critical, 0 serious, and 9 stable events that occurred. All manuallydetected vents were in sinus rhythm. CONCLUSIONS: 1. The patient's monitoring period was 06/12/2025 - 07/11/2025. Baselinesample showed Sinus Rhythm w/Couplet PACs/PACs with a heart rate of 94.9 bpm. There were0 critical, 0 serious, and 9 stable events that occurred. All manually detected ventswere in sinus rhythm. 2. I have reviewed the PDF and all the ECG strips. I agree with theinterpretations as detailed in the report. 3. The PDF can be found in the Epic Patient chart. Please go to theCardiology tab, click on the holter or event exam. Scroll to bottom where the ORDER-LEVELDocuments reside and click the blue link to the pdf. Electronically Signed By: Nino Anderson Jr., M.D. 07/13/2025 2:50:49 PM CDT us Talia Tamera Mcmanus [employer] ARTIST CV CARDIAC SERVICES PROCED URES Final Result * Hepatitis C antibody (08/11/2017 4:[address] [facility]) Hep C Ab Negative Negative ANDER RIOS Blood specimen (specimen) 08/11/2017 4:[address] [facility] 08/11/2017 6:[address] [facility] Narrative ANDER RIOS - 08/11/2017 7:[address] [facility] Elsy Honeycutt NP LAB MICROBIOLOGY - GENERAL ORDER STEPHAN Final Result ANDER [id number] Department of Laboratories [place], [place] [id number] from Last 3 Months or Most Recently Relevant to Health Maintenance [facility] [employer] CHOICE MEDICARE PPO IDPA BLUE ACCESS OOS Advance Directives For more information, please contact: [phone] * Full Code (Latest Code Status on [...] 1:26 PM 08/21/2019 7:55 PM Care Teams Key Account Representative Relationship Specialty Start Date End Date Fernanda Cooley MD [address] [facility] ([facility]) Mailstop [phone] [place] [address] PCP - General Family Medicine 03/06/25 Macario Tinoco, PT Physical Therapist Physical Therapy 02/09/18 Jermaine Huertas, PT Physical Therapist Physical Therapy 02/21/18 Bria Bailey MD Referring Physician Obstetrics and Gynecology 03/31/18 Viktor Foley MD Surgeon General Surgery 08/30/18 Rochelle Givens, [facility] [address] [facility] ([facility]) Mailstop [phone] [place] [address] SHOP Outpatient Registered Nurse Obstetrics 02/26/25
--- OUTSIDE RECORDS SUMMARY | 2025-08-28 13:52 | XMS_ITS | Clinical Summary ---
Author Organization [facility] Barb Ulrich Address [address] [facility] [address] Care Team Providers Care Director Of Business Services Name Role Phone Unavailable Primary Care Provider Unavailabl e Allergies Active Allergy Reactions Criticality Noted Date Comments Azithromycin Rash Low 09/01/2022 Latex Hives High 09/01/2022 Penicillin Shortness of Breath/Wheezing High 022 Medications DULoxetine (CYMBALTA) 60 mg Capsule, Delayed Release(E.C.) TAKE 1 CAPSULE BY MOUTH TWICE DAILY IN THE MORNING 2 Active lamoTRIgine (LaMICtal) 100 mg tablet 2 Active Linzess 290 mcg capsule Take 290 mcg by mouth daily. 2 Active metoprolol succinate (TOPROL XL) 50 mg Extended Release 24 hour tablet TAKE 1 & 1/2 (ONE & ONE-HALF) TABLETS BY MOUTH TWICE DAILY 2 Active pregabalin (LYRICA) 150 mg Capsule Take 150 mg by mouth 3 times daily. 2 Active Ozempic 0.25 mg or 0.5 mg(2 mg/1.5 mL) Pen Injector 2 Active traZODone (DESYREL) 100 mg tablet 2 Active diphenhydrAMIN E (BENADRYL) 25 mg tablet Take 25 mg by mouth every 6 hours as needed for Allergies. Active clonazePAM (KlonoPIN) 0.5 mg Tablet TAKE 1 TABLET BY MOUTH NEEDED. MUST LAST 30 DAYS 2 Active dofetilide (TIKOSYN) 125 mcg capsule Take 1 Capsule by mouth 2 times daily. 5 Active cyclobenzaprin e (FLEXERIL) 10 mg tablet Take 10 mg by mouth daily at bedtime. 5 Active Jardiance 10 mg tablet Take 10 mg by mouth daily. 5 Active cyanocobalamin (VITAMIN B-12) 1,000 mcg/mL Solution INJECT 1 ML (1,000 MCG) BY INTRAMUSCULAR INJECTION EVERY 2 WEEKS. 8 mL 5 Active Active Problems No known active problems Encounters Date Type Department Care Team Description 06/06/2025 [facility] Oncology and Hematology - Josue [address] [place] [address] Tahir Trivedi MD from Last 3 Months Family History Medical [...] Sign Reading Time Taken Comments Blood Pressure 114/69 05/10/2025 3:45 PM CDT Pulse 94 05/10/2025 3:45 PM CDT Temperature 36.3 C (97.3 F) 05/10/2025 3:45 PM CDT Respiratory Rate 12 05/10/2025 3:45 PM CDT Oxygen Saturation 100% 05/10/2025 3:45 PM CDT Inhaled Oxygen Concentration - - Weight 103 kg (227 lb) 05/10/2025 3:45 PM CDT Height 157.5 cm (5' 2) 09/01/2022 3:17 PM MANAGER OF REVENUE Body Mass Index 41.52 09/01/2022 3:17 PM MANAGER OF REVENUE Plan of Treatment Upcoming Encounters Date Type Department Care Team (Late st Contact Info) Description 08/29/2025 3:45 PM MANAGER OF REVENUE Office Visit [facility] Oncology and Hematology - [place] [address] [facility] [address] [place] [address] Tahir Trivedi MD [address] [facility] [address] [place] [address] Health Maintenance Due Date Last Done Comments Pre-Diabetes and Diabetes Screening 1987 DTAP/TDAP/TD VACCINES (1 - Tdap) 2006 HEPATITIS B VACCINES (1 of 3 - 19+ 3-dose series) 10/2005 HPV/Cotest (21-29) 2008 CERVICAL CANCER SCREENING 2017 HPV/Cotest (30-65) 2017 PAP SMEAR 2017 INFLUENZA VACCINE (#1) 2025 HPV VACCINES (No Doses Required) Completed [place] [address] [place] [address] [employer] CHOICE POS II
--- OUTSIDE RECORDS SUMMARY | 2025-08-28 13:52 | XMS_ITS | Encounter Summary ---
Author Organization [facility] Address [address] [place] [address] Phone Care Team Providers Care Pipe Cleaner Name Role Phone Macario Tinoco PT Unavailable Unavailable Jermaine Huertas PT Unavailable UnavailNiraj Nogueira NP Primary Care Provider + Bria Bailey MD Unavailable [phone] Patience Chapa Primary Care Provider + Viktor Foley MD Unavailable [phone] Austin Lee MD Primary Care Provider [phone] Patience Chapa Primary Care Provider + Patience Chapa Primary Care Provider + Danilo Mirza MD Primary Care Provider [phone] Dannielle Lee MD Primary Care Provider [phone] Austin Lee MD Primary Care Provider [phone] Dannielle Lee MD Primary Care Provider [phone] Austin Lee MD Primary Care Provider [phone] Dannielle Lee MD Primary Care Provider [phone] Niraj Crump NP Primary Care Provider + Austin Lee MD Primary Care Provider [phone] Brianna Hough RN Unavailable Yuniorcici Rochelle Flannery ENGLISH PROFESSOR Unavailable [phone] Fernanda Cooley MD Primary Care Provider Encounter [...] on file Legal Sex Female 5:47 PM [facility] Gender Identity Not on file Sexual Orientation [...] COVID: Suspected 09/28/2020 09/28/2020 09/28/2020 1:09 PM [facility] Respiratory Infection (ROSAMARIA), contact + droplet Comment:Automatically added due to negative COVID-19 result. 09/28/2020 09/28/2020 09/30/2020 11: 42 AM [facility] C. difficile 09/29/2020 09/29/2020 09/30/2020 11:4 1 AM [facility] C. difficile Comment:03/13/2022 Patient completed antibiotic course [...] documented as of this encounter Care Teams Pipe Cleaner Relationship Specialty Start Date End Date Niraj Crump NP [address] [facility] [place] [address] PCP - General 03/14/18 08/27/18 Patience Chapa PA [address] [place] [address] PCP - General 08/28/18 06/26/19 Austin Lee MD [address] [place] [address] PCP - General Internal Medicine 06/27/19 07/11/19 Patience Chapa PA [address] [place] [address] PCP - General 07/12/19 08/20/19 Patiecne Chapa PA [address] [facility] [place] [id number] PCP - General 08/21/19 11/13/19 Danilo Mirza MD [address] [place] [address] PCP - General 11/14/19 09/27/20 Dannielle Lee MD [address] [place] [address] PCP - General 09/28/20 11/30/20 Austin Lee MD [address] [place] [id number] PCP - General 12/01/20 12/08/20 Dannielle Lee MD [address] [place] [address] PCP - General 12/09/20 12/09/20 Austin Lee MD [address] [place] [address] PCP - General 12/10/20 12/11/20 Dannielle Lee MD [address] [place] [address] PCP - General 12/12/20 06/09/21 Niraj Crump NP [address] [facility] [facility] [address] [place] [address] PCP - General 06/10/21 01/21/22 Austin Lee MD [address] [place] [place] [address] PCP - General 01/22/22 02/22/25 Fernanda Cooley MD [address] [facility] ([facility] Mailstop [phone] [place] [address] PCP - General Family Medicine 03/06/25 Macario Tinoco, PT Physical Therapist Physical Therapy 02/09/18 Jermaine Huertas, PT Physical Therapist Physical Therapy 02/21/18 Bria Bailey MD [address] [facility] [address], [place] [address] Referring Physician Obstetrics and Gynecology 03/31/18 Viktor Foley MD [address] [facility] [address] [place], [place] [id number] Surgeon General Surgery 08/30/18 Brianna Hough, RN [address] [facility] [address] [place] [address] SHOP Outpatient Press Operator Helper 12/27/23 01/20/24 Rochelle Givens, ENGLISH PROFESSOR [address] [facility] ([facility] Mailstop [phone] [place] [address] SHOP Outpatient Press Operator Helper 02/26/25 documented as of this encounter
--- OUTSIDE RECORDS SUMMARY | 2025-08-28 13:52 | XMS_ITS | Encounter Summary ---
Author Organization [facility] Address [address] [place] [address] Phone Care Team Providers Care Process Control Operator Name Role Phone Macario Tinoco PT Unavailable Unavailable Jermaine Huertas PT Unavailable UnavailBria Black MD Unavailable [phone] Patience Chapa Primary Care Provider + Viktor Foley MD Unavailable [phone] Austin Lee MD Primary Care Provider [phone] aPtience Chapa Primary Care Provider + Patience Chapa Primary Care Provider + Danilo Mirza MD Primary Care Provider [phone] Dannielle Lee MD Primary Care Provider [phone] Austin Lee MD Primary Care Provider [phone] Dannielle Lee MD Primary Care Provider [phone] Austin Lee MD Primary Care Provider [phone] Dannielle Lee MD Primary Care Provider [phone] Niraj Crump NP Primary Care Provider + Austin Lee MD Primary Care Provider [phone] Gianluca Briannajeremy Vivas RN Unavailable Rochelle Givens PODIATRY ASSISTANT Unavailable Fernanda Cooley MD Primary Care Provider [...] on file 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 09/28/2020 09/28/2020 09/30/2020 11: 42 AM SCENE SHIFTER C. difficile 09/29/2020 09/29/2020 09/30/2020 11:4 1 AM SCENE SHIFTER C. difficile Comment:03/13/2022 Patient completed antibiotic course [...] documented as of this encounter Care Teams Process Control Operator Relationship Specialty Start Date End Date Patience Chapa PA [address] [place] [address] PCP - General 08/28/18 06/26/19 Austin Lee MD [address] [facility] [address] PCP - General Internal Medicine 06/27/19 07/11/19 Patience Chapa PA [address] [place] [address] PCP - General 07/12/19 08/20/19 Patience Chapa PA [address] [place] [address] PCP - General 08/21/19 11/13/19 Danilo Mirza MD [address] [place] [address] PCP - General 11/14/19 09/27/20 Dannielle Lee MD [address] [place] [address] PCP - General 09/28/20 11/30/20 Austin Lee MD [address] [place], [place] [id number] PCP - General 12/01/20 12/08/20 Dannielle Lee MD [address] [place] [address] PCP - General 12/09/20 12/09/20 Austin Lee MD [address] [place], [place] [id number] PCP - General 12/10/20 12/11/20 Dannielle Lee MD [address] [place] [address] PCP - General 12/12/20 06/09/21 Niraj Crump NP [address] [facility] [address] [place] [address] PCP - General 06/10/21 01/21/22 Austin Lee MD [address] [place] [address] PCP - General 01/22/22 02/22/25 Fernanda Cooley MD [address] [facility] ([facility]) Mailstop [phone] [place] [address] PCP - General Family Medicine 03/06/25 Macario Tinoco, PT Physical Therapist Physical Therapy 02/09/18 Jermaine Huertas, PT Physical Therapist Physical Therapy 02/21/18 Bria Bailey MD Referring Physician Obstetrics and Gynecology 03/31/18 Viktor Foley MD [address] [place] [address] Surgeon General Surgery 08/30/18 Brianna Hough, RN [address] [address] SHOP Outpatient School Business Administrator 12/27/23 01/20/24 Rochelle Givens, PODIATRY ASSISTANT [address] [facility] ([facility]) Mailstop [phone] [place] [address] SHOP Outpatient School Business Administrator 02/26/25 documented as of this encounter
--- OUTSIDE RECORDS SUMMARY | 2025-08-28 13:52 | XMS_ITS | Clinical Summary ---
Author Organization [facility] Address [address] [place] [address] Phone Care Team Providers Care Farmworker D[employer] Crops Name Role Phone Austin Lee MD Primary Care Provider [phone] Allergies Active Allergy Reactions Criticality Noted Date [...] needed for Wheezing. Active ergocalciferol (VITAMIN D) 96513 UNIT Capsule 7 Active fluconazole (DIFLUCAN) 200 [...] mg by mouth 2 times daily. Active Tieehaws-Eyj-Yy -FA (PRE-BABS PO) Take by mouth. Activ e metroNIDAZOLE [...] (BENADRYL ALLERGY PO) Take by mouth. Act aden Active Problems Problem Noted Date Diagnosed Date [...] Comments Hepatitis C Virus (HCV) Screening 1987 Varicella Immunization (1 of 2 - 13+ 2-dose series) 2000 Hepatitis B Immunization (1 of 3 - 19+ 3-dose series) 2006 Pneumococcal Immunization Combined (1 of 2 - PCV) 2006 Pap Smear 2008 Cervical Cancer Screening (CCS) 2017 HPV/Cotest 2017 Influenza Immunization (#1) 2025 SARS-COV-2 Immunization ( season) 2025 10/29/2021, 05/12/2021, 04/19/2021 Respiratory Syncytial Virus (RSV) Immunization (Adult) (1 - 1-dose 75+ series) 2062 DTaP/Tdap/Td Immunization Discontinued 02/01/2018 TdaP Immunization Completed 02/01/2018 Human Papillomavirus (HPV) Immunization (No Doses Required) Completed Meningococcal Immunization (ACWY) Aged Out No longer eligible based on patient's age to complete this topic Rotavirus Immunization Aged Out No lo nger eligible based on patient's age to complete this topic Insurance [employer] Care Teams Farmworker Diversified Crops Relationship Specialty Start Date End Date Austin Lee MD [address] [place] [address] PCP - General Internal Medicine 10/22/20
--- OUTSIDE RECORDS SUMMARY | 2025-08-28 13:52 | XMS_ITS | Encounter Summary ---
Author Organization [facility] Address [address] [place] [address] Care Team Providers Care Resin Maker Name Role Phone None, Provider MD Primary Care Provider Unavaila ble New Referring, Provider Primary Care Provider Un available Encounter Details Date Type Department Care Team (Late st Contact Info) Description 06/15/2014 [facility] [place] [address] [place] [address] Trista Myers MD [address] 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
--- OUTSIDE RECORDS SUMMARY | 2025-08-28 13:52 | XMS_ITS | Encounter Summary ---
Author Organization [facility] Address [address] [place] [address] Phone Care Team Providers Care Vp Name Role Phone Macario Tinoco PT Unavailable Unavailable Jermaine Huertas PT Unavailable Unavaila Bria Salamanca MD Unavailable [phone] Viktor Foley MD Unavailable [phone] Niraj Crump NP Primary Care Provider + Austni Lee MD Primary Care Provider [phone] Brianna Hough RN Unavailable Rochelle Givens CRUSHER WET GROUND MICA Unavailable [phone] Fernanda Cooley MD Primary Care Provider Encounter [...] on file 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 Gender Identity Not on file Sexual Orientation [...] documented as of this encounter Care Teams Vp Relationship Specialty Start Date End Date Niraj Crump NP [address] [facility] [address], [place] [address] PCP - General 06/10/21 01/21/22 Austin Lee MD [address] [facility] [address] [place] [address] PCP - General 01/22/22 02/22/25 Fernanda Cooley MD [address] [facility] ([facility]) Mailstop [phone] [place] [address] PCP - General Family Medicine 03/06/25 Macario Tinoco, PT Physical Therapist Physical Therapy 02/09/18 Jermaine Huertas, PT Physical Therapist Physical Therapy 02/21/18 Bria Bailey MD Referring Physician Obstetrics and Gynecology 03/31/18 Viktor Foley MD Surgeon General Surgery 08/30/18 Brianna Hough, RN 4590 [facility] [address] [place] [address] SHOP Outpatient Neuropsychology Division Chief 12/27/23 01/20/24 Rochelle Givens, LLOYD 45[address] [facility] ([facility]) [facility] [phone] [place] [address] SHOP Outpatient Neuropsychology Division Chief 02/26/25 documented as of this encounter
--- OUTSIDE RECORDS SUMMARY | 2025-08-28 13:52 | XMS_ITS | Encounter Summary ---
Author Organization [facility] Address [address] [place] [address] Phone Care Team Providers Care Java Software Name Role Phone Janina Crockett MD Primary Care Provide r Janina Crockett MD Primary Care Provide r Janina Crockett MD Primary Care Provide r Niraj Crump MARINE METEOROLOGIST Primary Care Provider + Niraj Crump MARINE METEOROLOGIST Primary Care Provider + Niraj Crump MARINE METEOROLOGIST Primary Care Provider + Janina Crockett MD Primary Care Provide r Janina Crockett MD Primary Care Provide r Niraj Crump MARINE METEOROLOGIST Primary Care Provider + Janina Crockett MD Primary Care Provide r Niraj Crump MARINE METEOROLOGIST Primary Care Provider + Macario Tinoco PT Unavailable Unavailable Janina Crockett MD Primary Care Provide r Jermaine Huertas PT Unavailable Unavaila Niraj Michelle NP Primary Care Provider + Bria Bailey MD Unavailable [phone] Patience Chapa Primary Care Provider + Viktor Foley MD Unavailable [phone] Austin Lee MD Primary Care Provider [phone] Patience Chapa Primary Care Provider + Patience Chapa Primary Care Provider + Danilo Mirza MD Primary Care Provider [phone] Dannielle Lee MD Primary Care Provider [phone] Austin Lee MD Primary Care Provider [phone] Dannielle Lee MD Primary Care Provider [phone] Austin Lee MD Primary Care Provider [phone] Dannielle Lee MD Primary Care Provider [phone] Niraj Crump MARINE METEOROLOGIST Primary Care Provider + Austin Lee MD Primary Care Provider [phone] Brianna Hough RN Unavailable [phone] Rochelle GivensW Unavailable [phone] Fernanda Cooley MD Primary Care Provider Encounter [...] on file 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 09/28/2020 09/28/2020 09/30/2020 11: 42 AM IN SHOP SERVICE TECHNICIAN C. difficile 09/29/2020 09/29/2020 09/30/2020 11:4 1 AM IN SHOP SERVICE TECHNICIAN C. difficile Comment:03/13/2022 Patient completed antibiotic course [...] documented as of this encounter Care Teams Java Software Relationship Specialty Start Date End Date Janina Crockett MD [address] [place] [address] PCP - General 11/22/17 11/22/17 Janina Crockett MD [address] [place] [address] PCP - General 11/23/17 11/25/17 Janina Crockett MD [address] [place] [address] PCP - General 11/26/17 11/28/17 Niraj Crump, ALEKSANDRA [address] [facility] [address] [place] [address] PCP - General 11/29/17 12/05/17 Niraj Crump, ALEKSANDRA [address] [facility] [address] [place] [address] PCP - General 12/06/17 12/06/17 Niraj Crump NP [address] [facility] [address] [place] [address] PCP - General 12/07/17 12/07/17 Janina Crockett MD [address] [place] [address] PCP - General 12/08/17 12/22/17 Janina Crockett MD [address] [place] [address] PCP - General 12/23/17 01/03/18 Niraj Crump NP [address] [facility] [address] [place] [address] PCP - General 01/04/18 01/04/18 Janina Crockett MD [address] [place] [address] PCP - General 01/05/18 02/03/18 Niraj Crump, ALEKSANDRA [address] [facility] [address] [place] [address] PCP - General 02/04/18 02/14/18 Janina Crockett MD [address] [place] [address] PCP - General 02/15/18 03/13/18 Niraj Crump, ALEKSANDRA [address] [facility] [address] [place] [address] PCP - General 03/14/18 08/27/18 Patience Chapa PA [address] [place] [address] PCP - General 08/28/18 06/26/19 Austin Lee MD [address] [place] [address] PCP - General Internal Medicine 06/27/19 07/11/19 Patience Chapa PA [address] [place], [place] [address] PCP - General 07/12/19 08/20/19 Patience Chapa PA [address] [place] [address] PCP - General 08/21/19 11/13/19 Danilo Mirza MD [address] [place] [address] PCP - General 11/14/19 09/27/20 Dannielle Lee MD [address] [place] [address] PCP - General 09/28/20 11/30/20 Austin Lee MD [address] [place] [address] PCP - General 12/01/20 12/08/20 Dannielle Lee MD [address] [place] [address] PCP - General 12/09/20 12/09/20 Austin Lee MD [address] [place] [address] PCP - General 12/10/20 12/11/20 Dannielle Lee MD [address] [place] [address] PCP - General 12/12/20 06/09/21 Niraj Crump NP [address] [facility] [address] [place] [address] PCP - General 06/10/21 01/21/22 Austin Lee MD [address] [place] [address] PCP - General 01/22/22 02/22/25 Fernanda Cooley MD 4590 [facility] ([facility] Mailstop [phone] [place] [address] PCP - General Family Medicine 03/06/25 Macario Tinoco, PT Physical Therapist Physical Therapy 02/09/18 Jermaine Huertas, PT Physical Therapist Physical Therapy 02/21/18 Bria Bailey MD Referring Physician Obstetrics and Gynecology 03/31/18 Viktor Foley MD [address] [place] [address] Surgeon General Surgery 08/30/18 Brianna Hough, RN 4590 [facility] [address] [place] [address] SHOP Outpatient Beef Killer 12/27/23 01/20/24 Rochelle Givens, WOOD CABINETMAKER 4590 [facility] ([facility]) Mailstop [phone] [place] [address] SHOP Outpatient Beef Killer 02/26/25 documented as of this encounter
--- OUTSIDE RECORDS SUMMARY | 2025-08-28 13:52 | XMS_ITS | Encounter Summary ---
Author Organization [facility] Address [address] [place] [address] Phone Care Team Providers Care Complaint Evaluation Officer Name Role Phone Macario Tinoco PT Unavailable Unavailable Jermaine Huertas PT Unavailable Unavaila Bria Salamanca MD Unavailable [phone] Viktor Foley MD Unavailable [phone] Rochelle Givens STONER HAND Unavailable [phone] Fernanda Cooley MD Primary Care Provider Encounter Details Date Type Department Care Team (Late st Contact Info) Description 08/01/2025 Results Follow-Up [facility] Medicine Cardiology [address] [facility] Advanced Medicine 8th [place] [address] [place] [address] Rochelle Nelson, KELLY MACHINE OPERATOR [address] [facility] [address] [place] [address] ECG 12 lead Social History Tobacco Use Types Packs/Day Years Used Date Smoking Tobacco: Never Smokeless Tobacco: Never Alcohol Use Standard Drinks/Week Comments Not Currently 0 (1 standard drink = 0.6 oz pur e alcohol) rarely [facility] Utilities Answer Date Recorded In the past 12 months has [employer] electric, gas, oil, or water company threatened [...] week 02/27/2025 How often do you attend latter-day or church serv ices? Never 02/27/2025 Do you belong to any clubs o r organizations such as latter-day groups, unions, fraternal or athletic groups, or [...] any time in the past 12 m [facility], were you homeless or living in a senior living (including now)? 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 Gender Identity Not on file Sexual Orientation Not on file documented as of this encounter Functional Status * BP Location Answer Date of Assessment Author Right arm 08/01/2025 9:08 AM [facility] * BP Location Answer Date of Assessment Author Right arm 08/01/2025 9:08 AM [facility] documented as of this encounter Plan of Treatment Not on file documented as of this encounter Visit Diagnoses Not on filedocumented in this encounter Care Teams Complaint Evaluation Officer Relationship Specialty Start Date End Date Fernanda Cooley MD [address] [facility] ([facility]) Mailstop [phone] [place] [address] PCP - General Family Medicine 03/06/25 Macario Tinoco, PT Physical Therapist Physical Therapy 02/09/18 Jermaine Huertas, PT Physical Therapist Physical Therapy 02/21/18 Bria Bailey MD Referring Physician Obstetrics and Gynecology 03/31/18 Viktor Foley MD Surgeon General Surgery 08/30/18 Rochelle Givens, [facility] [address] [facility] ([facility]) Mailstop [phone] [place] [address] [facility] Outpatient Rda 02/26/25 documented as of this encounter
--- OUTSIDE RECORDS SUMMARY | 2025-08-28 13:52 | XMS_ITS | Encounter Summary ---
Author Organization [facility] Address [address] [place] [address] Phone Care Team Providers Care Straight Edger Name Role Phone Macario Tinoco PT Unavailable Unavailable Jermaine Huertas PT Unavailable Unavaila Bria Salamanca MD Unavailable [phone] Viktor Foley MD Unavailable [phone] Austin Lee MD Primary Care Provider Brianna Hough RN Unavailable [phone] Rochelle Givens PAPER CARRIER Unavailable [phone] Fernanda Cooley MD Primary Care Provider Encounter Details Date Type Department Care Team (Late st Contact Info) Description 06/23/2022 Telephone [facility] Medicine Cardiology [address] [facility] Advanced Medicine 8th [place] [address] [place] [address] Dc Gonzalez MD [address] [facility] [address] [place] [address] Social History Tobacco Use Types [...] on file 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 Gender Identity Not on file Sexual Orientation [...] documented as of this encounter Care Teams Straight Edger Relationship Specialty Start Date End Date Austin Lee MD [address] [place] [address] PCP - General 01/22/22 02/22/25 Fernanda Cooley MD 4590 [facility] ([facility] [phone] [place] [address] PCP - General Family Medicine 03/06/25 Macario Tinoco, PT Physical Therapist Physical Therapy 02/09/18 Jermaine Huertas, PT Physical Therapist Physical Therapy 02/21/18 Bria Bailey MD Referring Physician Obstetrics and Gynecology 03/31/18 Viktor Foley MD Surgeon General Surgery 08/30/18 Brianna Hough, RN 45[address] [facility] [address] [place] [address] SHOP Outpatient Outpatient Facility Physical Therapist 12/27/23 01/20/24 Rochelle Givens, LLOYD 4590 [facility] ([facility] [place] Mailstop [phone] [place] [address] SHOP Outpatient Outpatient Facility Physical Therapist 02/26/25 documented as of this encounter
--- OUTSIDE RECORDS SUMMARY | 2025-08-28 13:52 | XMS_ITS | Encounter Summary ---
Author Organization [facility] Address [address] [place] [address] Phone Care Team Providers Care Statistics Tutor Name Role Phone Janina Crockett MD Primary Care Provide r Niraj Crump INSURANCE ADVISER Primary Care Provider + Janina Crockett MD Primary Care Provide r Niraj Crump INSURANCE ADVISER Primary Care Provider + Janina Crockett MD Primary Care Provide r Janina Crockett MD Primary Care Provide r Janina Crockett MD Primary Care Provide r Niraj Crump INSURANCE ADVISER Primary Care Provider + Niraj Crump INSURANCE ADVISER Primary Care Provider + Janina Crockett MD Primary Care Provide r Janina Crockett MD Primary Care Provide r Janina Crockett MD Primary Care Provide r Janina Crockett MD Primary Care Provide r Theron, Niraj Dean INSURANCE ADVISER Primary Care Provider + Theron, Niraj Dean INSURANCE ADVISER Primary Care Provider + Theron, Niraj Dean INSURANCE ADVISER Primary Care Provider + Janina Crockett MD Primary Care Provide r Janina Crockett MD Primary Care Provide r Theron, Niraj Dean INSURANCE ADVISER Primary Care Provider + Janina Crockett MD Primary Care Provide r Theron, Niraj Dean INSURANCE ADVISER Primary Care Provider + Macario Tinoco PT Unavailable Unavailable Janina Crockett MD Primary Care Provide r Jermaine Huertas PT Unavailable Unavaila ble Niraj Crump NP Primary Care Provider + Bria Bailey MD Unavailable [phone] Patience Chapa Primary Care Provider + Viktor Foley MD Unavailable [phone] Austin Lee MD Primary Care Provider [phone] Patience Chapa Primary Care Provider + Patience Chapa Primary Care Provider + Danilo Mirza MD Primary Care Provider [phone] Dannielle Lee MD Primary Care Provider [phone] Austin Lee MD Primary Care Provider [phone] Dannielle Lee MD Primary Care Provider [phone] Austin Lee MD Primary Care Provider [phone] Dannielle Lee MD Primary Care Provider [phone] Niraj Crump NP Primary Care Provider + Austin Lee MD Primary Care Provider [phone] Brianna Hough RN Unavailable [phone] YuniorRochelle bolanos STATION JAILER Unavailable [phone] Fernanda Cooley MD Primary Care Provider Encounter [...] on file 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 Gender Identity Not on file Sexual Orientation Not on file documented as of this encounter Plan of Treatment Not on file documented as of this encounter Procedures Procedure Name Priority Date/Time Associated Diagnosis Comments TRANSTHORACIC ECHO (TTE) COMPLETE W DOPPLER/CF WO CONTRAST 10/14/2017 12:33 PM CONSTRUCTION TECHNICIAN OBSTETRIC/GYNECOLOGY ULTRASONOGRAPHY REPORT 10/04/2017 9:55 AM CONSTRUCTION TECHNICIAN documented in this encounter Results * TRANSTHORACIC ECHO (TTE) COMPLETE W DOPPLER/CF WO CONTRAST (10/14/2017 12:33 PM CONSTRUCTION TECHNICIAN) Anatomical Region Laterality Modality Ultrasound us Provider Scanning CV ECHO PROCEDURES Final Resul t * OBSTETRIC/GYNECOLOGY ULTRASONOGRAPHY REPORT (10/04/2017 9:55 AM CONSTRUCTION TECHNICIAN) Anatomical Region Laterality Modality Ultrasound us Provider [...] COVID: Suspected 09/28/2020 09/28/2020 09/28/2020 1:09 PM CONSTRUCTION TECHNICIAN Respiratory Infection (ROSAMARIA), contact + droplet Comment:Automatically added due to negative COVID-19 result. 09/28/2020 09/28/2020 09/30/2020 11: 42 AM CONSTRUCTION TECHNICIAN C. difficile 09/29/2020 09/29/2020 09/30/2020 11:4 1 AM CONSTRUCTION TECHNICIAN C. difficile Comment:03/13/2022 Patient completed antibiotic [...] documented as of this encounter Care Teams Statistics Tutor Relationship Specialty Start Date End Date Janina Crockett MD [address] [place] [address] PCP - General 09/16/17 10/31/17 Niraj Crump NP [address] [place] [address] [address] [place] [address] PCP - General 11/01/17 11/02/17 Janina Crockett MD [address] [place] [address] PCP - General 11/03/17 11/05/17 Niraj Crump NP [address] [facility] [address] [place] [address] PCP - General 11/06/17 11/07/17 Janina Crockett MD [address] [place] [address] PCP - General 11/08/17 11/10/17 Janina Crockett MD [address] [place] [address] PCP - General 11/11/17 11/11/17 Janina Crockett MD [address] [place], [place] [address] PCP - General 11/12/17 11/14/17 Niraj Crump, ALEKSANDRA [address] [facility] [address] [place] [address] PCP - General 11/15/17 11/15/17 Niraj Crump, INSURANCE ADVISER [address] [facility] [address] [place] [address] PCP - General 11/16/17 11/18/17 Janina Crockett MD [address] [place] [address] PCP - General 11/19/17 11/21/17 Janina Corckett MD [address] [place] [address] PCP - General 11/22/17 11/22/17 Janina Crockett MD [address] [place] [address] PCP - General 11/23/17 11/25/17 Janina Crockett MD [address] [place] [address] PCP - General 11/26/17 11/28/17 Niraj Crump, ALEKSANDRA [address] [facility] [address] [place] [address] PCP - General 11/29/17 12/05/17 Niraj Crump NP [address] [facility] [address] [place] [address] PCP - General 12/06/17 12/06/17 Niraj Crump NP [address] [facility] [address] [place] [address] PCP - General 12/07/17 12/07/17 Janina Crcokett MD [address] [place] [address] PCP - General 12/08/17 12/22/17 Janina Crockett MD [address] [place] [address] PCP - General 12/23/17 01/03/18 Niraj Crump NP [address] [facility] [address] [place] [address] PCP - General 01/04/18 01/04/18 Janina Crockett MD [address] [place] [address] PCP - General 01/05/18 02/03/18 Niraj Crump, ALEKSANDRA [address] [facility] [address] [address] PCP - General 02/04/18 02/14/18 Janina Crockett MD [address] [place] [address] PCP - General 02/15/18 03/13/18 Niraj Crump, ALEKSANDRA [address] [facility] [address] [place] [address] PCP - General 03/14/18 08/27/18 Patience Chapa PA [address] [place] [address] PCP - General 08/28/18 06/26/19 Austin Lee MD [address] [place] [address] PCP - General Internal Medicine 06/27/19 07/11/19 Patience Chapa PA [address] [facility] [place] [address] PCP - General 07/12/19 08/20/19 Patience Chapa PA [address] [facility] [address] PCP - General 08/21/19 11/13/19 Danilo Mirza MD [address] [place] [address] PCP - General 11/14/19 09/27/20 Dannielle Lee MD [address] [place] [address] PCP - General 09/28/20 11/30/20 Austin Lee MD [address] [facility] [address] PCP - General 12/01/20 12/08/20 Dannielle Lee MD [address] [place] [address] PCP - General 12/09/20 12/09/20 Austin Lee MD [address] [place], [place] [address] PCP - General 12/10/20 12/11/20 Dannielle Lee MD [address] [place] [address] PCP - General 12/12/20 06/09/21 Niraj Crump NP [address] [facility] [address] [place] [address] [address] PCP - General 06/10/21 01/21/22 Austin Lee MD [address] [place] [address] PCP - General 01/22/22 02/22/25 Fernanda Cooley MD 4590 [facility]) Mailstop [phone] [place] [address] PCP - General Family Medicine 03/06/25 Macario Tinoco, PT Physical Therapist Physical Therapy 02/09/18 Jermaine Huertas, PT Physical Therapist Physical Therapy 02/21/18 Bria Bailey MD Referring Physician Obstetrics and Gynecology 03/31/18 Viktor Foley MD [address] [place], [place] [address]24 Surgeon General Surgery 08/30/18 Brianna Hough, RN 4590 [facility] [address] [place] [address] SHOP Outpatient Marine Mammal Trainer 12/27/23 01/20/24 Rochelle Givens, STATION JAILER 4590 [facility] ([facility] Mailstop [phone] [place] [address] SHOP Outpatient Marine Mammal Trainer 02/26/25 documented as of this encounter
--- OUTSIDE RECORDS SUMMARY | 2025-08-28 13:52 | XMS_ITS | Encounter Summary ---
Author Organization [facility] Address [address] [facility] [place] [address] Phone Care Team Providers Care Junior Estimator Name Role Phone Macario Tinoco PT Unavailable Unavailable Jermaine Huertas PT Unavailable Unavaila Bria Salamanca MD Unavailable [phone] Viktor Foley MD Unavailable [phone] Dannielle Lee MD Primary Care Provider [phone] Austin Lee MD Primary Care Provider [phone] Dannielle Lee MD Primary Care Provider [phone] Austin Lee MD Primary Care Provider [phone] Dannielle Lee MD Primary Care Provider [phone] Niraj Crump NP Primary Care Provider + Austin Lee MD Primary Care Provider [phone] Brianna Hough RN Unavailable [phone] Rochelle Givens LCSW Unavailable [phone] Fernanda Cooley MD Primary Care Provider Encounter Details Date Type Department Care Team (Late st Contact Info) Description 11/27/2020 Telephone [facility] Surgery [address] [facility] Medical Office Building [address] [place] [address] Thelma Tabares Social History Tobacco Use Types Packs/Day Years Used Date Smoking Tobacco: Never Smokeless Tobacco: Never Alcohol Use Standard Drinks/Week Comments Yes 0 (1 standard drink = 0.6 oz pur e alcohol) rarely Comments No Sex and Gender Information Value Date Recorded Sex Assigned at Not on file 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 [address] [address] PCP - General 06/10/21 01/21/22 Austin Lee MD [address] [place] [address] [address] [place], [place] [address] PCP - General 01/22/22 02/22/25 Fernanda Cooley MD 4590 [facility] ([facility] Mailstop [phone] [place] [address] PCP - General Family Medicine 03/06/25 Macario Tinoco, PT Physical Therapist Physical Therapy 02/09/18 Jermanie Huertas, PT Physical Therapist Physical Therapy 02/21/18 Bria Bailey MD Referring Physician Obstetrics and Gynecology 03/31/18 Viktor Foley MD Surgeon General Surgery 08/30/18 Brianna Hough, RN 4590 [facility] [address] [place], [place] [address] SHOP Outpatient Certified First Assistant 12/27/23 01/20/24 Rochelle Givens, [facility] 450[address] [facility] ([facility]) Mailstop [phone] [place] [address] SHOP Outpatient Certified First Assistant 02/26/25 documented as of this encounter
== END 2025-08-28 11:28 | disposition home or self-care (01) ==
LOC: ANHLAB 11:28
PROVIDERS: Visit Provider Internal Medicine Hematology & Oncology
DX: D64.9 Anemia, unspecified (principal)
CPT/HCPCS: 36415; 82607; 82728; 82746; 83540; 83550; 85027